=== PATIENT | male | born 1955 | race Caucasian/White ===

== ENCOUNTER 2018-06-21 06:49 | Day surgery (SDC) | payer MEDICAID, SELFPAY ==
[2018-06-21 07:15] VITALS: BP 130/89; PULSE 62; RESP 18; TEMP 36.8; O2SAT 97; BMI 28.6
--- NOTE | 2018-06-21 08:00 | COLBX_PTH ---
PATIENT: VINCENZO BENEDICT LOC: EN U#:[id number] AGE/SX: 62/M ROOM: RE06/21/[address]: Dr. Glenn Solomon MD : [id number] BED: DIS: 06/21/2018 SPEC #: [id number] RECD: 06/21/18 10:03 STATUS: KEKE DANIEL #: [id number] YASMANI: 06/21/18 08:[address]: Glenn Solomon DEPT: SURGICAL PATHOLOGY RECD BY: Yomi House ENTERED: 06/21/18 11:17 SP TYPE: COLON BX OTHR DR: Dr. David Vogt, DO Tissues: A - Cecum, NOS B - Transverse colon C - Rectum, NOS Procedures: Surgery Specimen Level IV HEADER OPERATION: Colonoscopy PRE-OP DIAGNOSIS: Thrombosed external hemorrhoid; screening for colon CA TISSUE SUBMITTED: A ? Cecal polyp, B ? Transverse polyp, C ? Rectal polyp MICROSCOPIC DIAGNOSIS A. Cecal polyp, biopsy: Hyperplastic polyp. B. Transverse colon polyp, biopsy: Tubular adenoma. Minute fragment of hyperplastic polyp. C. Rectal polyp, biopsy: Hyperplastic polyp. CARIDAD:yohan 06/24/18 MICROSCOPIC DESCRIPTION Slides are reviewed. GROSS DESCRIPTION A - Received in fixative is one container labeled with the patient's name and designated cecal polyp. The specimen consists of one irregular fragment of light roy soft tissue that measures 0.3 x 0.3 x 0.1 cm. The specimen is totally submitted in one cassette. B - Received in fixative is one container labeled with the patient's name and designated transverse polyp. The specimen consists of a piece of roy-pink polyp measuring 0.5 x 0.5 x 0.3 cm. A minute piece of tissue is also noted measuring <0.1 cm in greatest diameter. The specimen is totally submitted in one cassette. C - Received in fixative is one container labeled with the patient's name and designated rectal polyp. The specimen consists of one irregular fragment of light roy soft tissue that measures 0.4 x 0.3 x 0.1 cm. The specimen is totally submitted in one cassette. / CARIDAD:yohan 06/21/18 TC:1 CPT: 18167 x3
[2018-06-21 08:45] VITALS: BP 104/62; BP 130/89; PULSE 60; RESP 12; TEMP 36.1; O2SAT 96
--- NOTE | 2018-06-21 08:47 | PCM.OPRPT ---
Problem List (1) Screen for colon cancer Status: Acute Report of Operation Date of Procedure: 06/21/18 Pre-Operative Diagnosis: Screening for colon cancer Post-Operative Diagnosis: 1. Cecal polyp. 2. Transverse colon polyp. 3. Rectal polyp. 4. Hemorrhoids Surgery/Procedure Performed:: Colonoscopy with snare polypectomy Description of Procedure: The major risks and benefits associated with the procedure were explained to the patient in detail. The patient verbalized understanding and agreement with the same. The patient was brought to the endoscopy suite. After adequate sedation was achieved, the patient was placed in the left lateral decubitus position and a digital rectal exam was performed. This examination was within normal limits. A well-lubricated colonoscope was then inserted into the rectum and advanced under direct visualization to the level of the cecum. The bowel prep was good. The cecum was identified by both visual and anatomic landmarks. A photograph was taken of the end of the cecum. The scope was then fully withdrawn while examining the color, texture, anatomy and integrity of the mucosa from the cecum to the anal canal. The patient had a polyp in his cecum as well as a polyp in his mid transverse colon and rectum. All of these were removed with cautery snare. Hemostasis was good in all these locations. Otherwise the findings were consistent with normal colonic mucosa. Over 6 minutes were taken to examine the colonic mucosa. Upon reaching the rectum the scope was retroflexed to examine the distal rectal vault. The patient did have internal hemorrhoids. The scope was then straightened and was completely retrieved upon exiting the anal canal and the procedure was terminated. The patient was then transferred to the recovery room in stable condition. Recommendations for follow up: Dependent on pathology
[2018-06-21 08:50] VITALS: BP 104/77; BP 130/89; PULSE 53; RESP 16; O2SAT 94
[2018-06-21 08:55] VITALS: BP 114/83; BP 130/89; PULSE 52; RESP 16; O2SAT 94
[2018-06-21 09:00] VITALS: BP 122/89; BP 130/89; PULSE 48; RESP 16; TEMP 36.2; O2SAT 95
[2018-06-21 09:25] VITALS: BP 130/89
== END 2018-06-21 09:25 | disposition home or self-care (01) ==
LOC: EN 06:49 → AC 06:53
PROVIDERS: Family Provider Family Medicine; PCP Family Medicine; Visit Provider Surgery
PROC: 0DJD8ZZ Inspection of Lower Intestinal Tract, Via Natural or Artificial Opening Endoscopic (ICD-10-PCS; CPT 45378; principal; 2018-06-21 07:55)
DX: Z12.11 Encounter for screening for malignant neoplasm of colon (principal); K64.5 Perianal venous thrombosis; K63.5 Polyp of colon; D12.3 Benign neoplasm of transverse colon; K62.1 Rectal polyp; K64.4 Residual hemorrhoidal skin tags; E78.5 Hyperlipidemia, unspecified; Z79.899 Other long term (current) drug therapy
CPT/HCPCS: 45385; 88305; J7120

== ENCOUNTER → 2018-07-09 11:59 | Outpatient (CLI) | payer OTHER, SELFPAY | PROVIDERS: Family Provider Family Medicine; PCP Family Medicine; Visit Provider Nurse Practitioner Family | DX: M25.571 Pain in right ankle and joints of right foot (principal) | CPT/HCPCS: 73610 ==

== ENCOUNTER → 2018-09-18 10:54 | Outpatient (CLI) | payer MEDICAID, SELFPAY ==
[2018-09-18 12:39] LABS: ALB/GLOB Ratio 1.1 RATIO (0.9-2.4); AST(SGOT) 22 U/L (15-37); Alanine Aminotransfer ALT/SGPT 34 U/L (16-61); Albumin, Serum 3.7 g/dL (3.2-5.0); Alkaline Phosphatase 79 U/L (45-117); Anion Gap 7 (5-15); BUN 14 mg/dL (7-18); BUN/Creat Ratio 14.2 RATIO (10-20); Calcium,Total 8.7 mg/dL (8.5-10.1); Chloride 108 mmol/L (98-107); Cholesterol 221 mg/dL (200); Creatinine, Serum 0.98 mg/dL (0.70-1.30); EST Glomerular Filtration Rate 81 mL/min (>60); Est Glom Filt Rate - Afr Amer 98 mL/min (>60); Globulin 3.5 g/dL (2.2-4.2); Glucose 92 mg/dL (74-106); High Density Lipoprotein 42 mg/dL; Potassium 4.5 mmol/L (3.5-5.1); Protein, Total 7.2 g/dL (6.4-8.2); Sodium Level 143 mmol/L (136-145); Triglycerides 105 mg/dL; Very Low Density Lipoprotein 21 mg/dL (5-40)
== END ==
PROVIDERS: Family Provider Family Medicine; PCP Family Medicine; Referring Provider Family Medicine; Visit Provider Family Medicine
DX: Z00.00 Encounter for general adult medical examination without abnormal findings (principal); E78.5 Hyperlipidemia, unspecified
CPT/HCPCS: 36415; 80053; 80061; 84153; G0103

== ENCOUNTER → 2019-08-01 12:44 | Outpatient (CLI) | payer MEDICARE, SELFPAY ==
[2019-07-23 09:33] VITALS: BMI 28.5
--- NOTE | 2019-08-01 12:45 | ART_ITS ---
Reason For Study: Intermittent claudication Procedure A bilateral lower extremity continuous wave Doppler with analog waveform analysis and ankle brachial indexes. Left Segmental Pressures Left brachial= 146mmHg. Left posterior tibial artery = 165mmHg. Left dorsalis pedis artery = 185mmHg. The left dorsalis pedis waveforms are triphasic. The left posterior tibial artery waveforms are triphasic. Right Segmental Pressures Right brachial= 148mmHg. Right posterior tibial artery = 188mmHg. Right dorsalis pedis artery = 191mmHg. The right dorsalis pedis waveforms are triphasic. The right posterior tibial artery waveforms are triphasic. Indices The right ankle brachial index by the dorsalis pedis is 1.29. The right ankle brachial index by the posterior tibial artery is 1.27. The left ankle brachial index by the dorsalis pedis is 1.25. The left ankle brachial index by the posterior tibial artery is 1.11. Interpretation Summary Triphasic Doppler waveforms are noted at ankle level bilaterally. Resting ankle-brachial indices are normal bilaterally. There is no evidence of significant arterial occlusive disease in the lower extremities bilaterally. Ordering Physician: Jj Kauffman Referring Physician: Ran Vogt M.D. Performed By: Wanda Hunter RVT
== END ==
PROVIDERS: Family Provider Family Medicine; PCP Family Medicine; Referring Provider Nurse Practitioner Family; Visit Provider Nurse Practitioner Family
DX: I73.9 Peripheral vascular disease, unspecified (principal)
CPT/HCPCS: 93922

== ENCOUNTER → 2019-09-17 08:10 | Outpatient (CLI) | payer MEDICARE, SELFPAY ==
[2019-09-03 13:01] VITALS: BMI 28.5
[2019-09-17 12:58] LABS: AST(SGOT) 22 U/L (15-37); Alanine Aminotransfer ALT/SGPT 29 U/L (16-61); Albumin, Serum 3.6 g/dL (3.2-5.0); Alkaline Phosphatase 87 U/L (45-117); Anion Gap 4 (5-15); BUN 16 mg/dL (7-18); BUN/Creat Ratio 18.2 RATIO (10-20); Calcium,Total 9.1 mg/dL (8.5-10.1); Chloride 110 mmol/L (98-107); Cholesterol 145 mg/dL (200); Creatinine, Serum 0.88 mg/dL (0.70-1.30); EST Glomerular Filtration Rate 92 mL/min (>60); Est Glom Filt Rate - Afr Amer 112 mL/min (>60); Globulin 3.5 g/dL (2.2-4.2); Glucose 101 mg/dL (74-106); High Density Lipoprotein 43 mg/dL; Protein, Total 7.1 g/dL (6.4-8.2); Sodium Level 142 mmol/L (136-145); Triglycerides 95 mg/dL; Very Low Density Lipoprotein 19 mg/dL (5-40)
== END ==
PROVIDERS: Family Provider Family Medicine; PCP Family Medicine; Visit Provider Family Medicine
DX: E78.5 Hyperlipidemia, unspecified (principal)
CPT/HCPCS: 36415; 80053; 80061

== ENCOUNTER → 2020-06-01 09:50 | Outpatient (CLI) | payer MEDICARE, SELFPAY ==
[2020-05-06 12:44] VITALS: BMI 28.5
--- NOTE | 2020-06-01 09:55 | RAD_ITS ---
STUDY: X-RAY - PELVIS REASON FOR EXAM: Male, 64 years old. Hx osteoarthritis, in right ankle, ATTN hips TECHNIQUE: One view of the pelvis was obtained. COMPARISON: None. FINDINGS: There is a non-specific bowel gas pattern. Normal visualized soft tissue structures. There is degenerative change of the lower lumbar spine. There is narrowing with cortical sclerosis and osteophyte formation of the sacroiliac joint consistent with degenerative osteoarthritic changes. Normal visualized bilateral superior and inferior pubic rami. Normal pubic symphysis. Normal ischial tuberosities. Normal visualized right femoral head. Normal right acetabulum. There is moderate articular joint space narrowing of the right hip. There is a thickened appearance of the left. Right femoral neck which is nonspecific. Normal left acetabulum. There is moderate articular joint space narrowing of the left hip. RAD/Pelvis 1 or 2 Views IMPRESSION: Degenerative change.. No definitive evidence of an acute fracture. The presence of trauma, If pain persists recommend consideration for follow up CT scan of the pelvis. Electronically Signed: Kira Patiño MD at 6:39 EDT Tel , Service support ,
[2020-06-01 13:08] LABS: Erythrocyte Sedimentation Rate 15 mm/hr (0-20)
[2020-06-01 13:09] LABS: Absolute Lymphocyte Count 1.44 X10^3/uL (0.83-4.51); Absolute Neutrophil Count 2.1 X10^3/uL (2.0-7.7); Basophil# 0.05 X10^3/uL; Basophil% 1.2 % (0-1); Eosinophil# 0.06 X10^3/uL; Eosinophils% 1.5 % (0-5); Hematocrit 48.5 % (40-54); Hemoglobin 15.6 g/dL (13.0-16.5); Lymphocyte # 1.44 X10^3/ul (4.0); Lymphocyte % 35.3 % (19-41); Mean Corp Hgb Conc 32.2 g/dL (32-36); Mean Corpuscular Volume 96.2 fL (80-94); Mean Platelet Vol. 11.4 fl (6.2-12.0); Monocyte# 0.39 X10^3/uL; Monocyte% 9.6 % (0-10); NRBC Flagged by Analyzer 0 % (0-5); Neutrophil # 2.11 X10^3/uL (2.7-7.7); Neutrophil % 51.7 % (47-70); Platelet Count 202 K/mm3 (150-450); RBC Distribution Width SD 45.5 fl (35.1-43.9); Red Blood Count 5.04 M/mm3 (4.6-6.2); White Blood Count 4.1 K/mm3 (4.4-11.0)
[2020-06-01 13:41] LABS: ALB/GLOB Ratio 1.1 RATIO (0.9-2.4); AST(SGOT) 21 U/L (15-37); Alanine Aminotransfer ALT/SGPT 32 U/L (16-61); Albumin, Serum 3.7 g/dL (3.2-5.0); Alkaline Phosphatase 93 U/L (45-117); Anion Gap 6 (5-15); BUN 20 mg/dL (7-18); BUN/Creat Ratio 21.1 RATIO (10-20); CRP < 2.90 mg/L (0.0-3.0); Calcium,Total 8.5 mg/dL (8.5-10.1); Chloride 109 mmol/L (98-107); Creatinine, Serum 0.95 mg/dL (0.70-1.30); EST Glomerular Filtration Rate 84 mL/min (>60); Est Glom Filt Rate - Afr Amer 102 mL/min (>60); Globulin 3.5 g/dL (2.2-4.2); Glucose 105 mg/dL (74-106); Potassium 4.1 mmol/L (3.5-5.1); Protein, Total 7.2 g/dL (6.4-8.2); Rheumatoid Factor < 10.0 IU/mL (<15); Sodium Level 141 mmol/L (136-145)
[2020-06-03 01:53] LABS: ANTINUCLEAR ANTIBODIES DIRECT Negative (Negative)
[2020-06-03 04:17] LABS: CCP IgG Antibodies 5 units (0-19)
== END ==
PROVIDERS: PCP Family Medicine; Referring Provider Internal Medicine Rheumatology; Visit Provider Internal Medicine Rheumatology
DX: M19.071 Primary osteoarthritis, right ankle and foot (principal); E78.5 Hyperlipidemia, unspecified; G47.33 Obstructive sleep apnea (adult) (pediatric)
CPT/HCPCS: 36415; 72170; 80053; 85025; 85652; 86038; 86140; 86200; 86431

== ENCOUNTER → 2020-12-20 14:18 | Outpatient (CLI) | payer MEDICARE, SELFPAY ==
[2020-06-16 08:12] VITALS: BMI 28.1
[2020-12-20 17:39] LABS: Absolute Lymphocyte Count 1.62 X10^3/uL (0.83-4.51); Absolute Neutrophil Count 2.6 X10^3/uL (2.0-7.7); Basophil# 0.03 X10^3/uL; Basophil% 0.6 % (0-1); Eosinophil# 0.03 X10^3/uL; Eosinophils% 0.6 % (0-5); Hematocrit 45.4 % (40-54); Hemoglobin 16.1 g/dL (13.0-16.5); Lymphocyte # 1.62 X10^3/ul (4.0); Lymphocyte % 33.8 % (19-41); Mean Corp Hgb Conc 35.5 g/dL (32-36); Mean Corpuscular Hgb 33.8 pg (27.0-32.0); Mean Corpuscular Volume 95.4 fL (80-94); Mean Platelet Vol. 11.2 fl (6.2-12.0); Monocyte# 0.47 X10^3/uL; Monocyte% 9.8 % (0-10); NRBC Flagged by Analyzer 0 % (0-5); Neutrophil # 2.62 X10^3/uL (2.7-7.7); Neutrophil % 54.6 % (47-70); Platelet Count 205 K/mm3 (150-450); RBC Distribution Width CV 15.1 % (11.6-14.6); RBC Distribution Width SD 46.6 fl (35.1-43.9); Red Blood Count 4.76 M/mm3 (4.6-6.2); White Blood Count 4.8 K/mm3 (4.4-11.0)
[2020-12-20 18:14] LABS: ALB/GLOB Ratio 1.2 RATIO (0.9-2.4); AST(SGOT) 18 U/L (15-37); Alanine Aminotransfer ALT/SGPT 29 U/L (16-61); Alkaline Phosphatase 100 U/L (45-117); Anion Gap 5 (5-15); BUN 18 mg/dL (7-18); BUN/Creat Ratio 17.5 RATIO (10-20); Calcium,Total 8.7 mg/dL (8.5-10.1); Chloride 108 mmol/L (98-107); Creatinine, Serum 1.03 mg/dL (0.70-1.30); EST Glomerular Filtration Rate 77 mL/min (>60); Est Glom Filt Rate - Afr Amer 93 mL/min (>60); Globulin 3.3 g/dL (2.2-4.2); Glucose 80 mg/dL (74-106); Protein, Total 7.3 g/dL (6.4-8.2); Sodium Level 142 mmol/L (136-145)
== END ==
PROVIDERS: PCP Family Medicine; Referring Provider Internal Medicine Rheumatology; Visit Provider Internal Medicine Rheumatology
DX: M19.071 Primary osteoarthritis, right ankle and foot (principal); M16.0 Bilateral primary osteoarthritis of hip; E78.5 Hyperlipidemia, unspecified; G47.33 Obstructive sleep apnea (adult) (pediatric)
CPT/HCPCS: 36415; 80053; 85025

== ENCOUNTER 2021-01-27 07:47 | Outpatient (RCR) | payer MEDICARE, SELFPAY ==
[2020-06-16 08:12] VITALS: BMI 28.1
[2021-01-27] MEDS: COVID-19 VACC, MRNA(PFIZER)/PF 30 MCG/0.3 ML SYRINGE IM (13:04)
[2021-02-17] MEDS: COVID-19 VACC, MRNA(PFIZER)/PF 30 MCG/0.3 ML SYRINGE IM (13:39)
== END 2021-04-26 23:59 ==
LOC: IMMUN 07:47
PROVIDERS: PCP Family Medicine; Visit Provider Family Medicine
DX: Z23 Encounter for immunization (principal)
CPT/HCPCS: 0001A; 0002A; 91300

== ENCOUNTER → 2021-04-27 07:27 | Outpatient (CLI) | payer MEDICARE, SELFPAY ==
[2021-04-20 08:57] VITALS: BMI 28.5
--- NOTE | 2021-04-27 07:28 | MRI_ITS ---
STUDY: MRI LUMBAR SPINE WITHOUT CONTRAST REASON FOR EXAM: Male, 65 years old. low back pain with radicular symptoms -- TECHNIQUE: Standardized fat and water weighted pulse sequences were obtained in the sagittal and axial planes. COMPARISON: None FINDINGS: T12-L1: Normal endplates. Normal disc height, hydration and morphology. Normal bilateral facet joints. Normal central canal and bilateral lateral recesses. Normal bilateral intervertebral neural foramina. Normal lumbar lordosis. There is no substantial scoliosis. Normal conus medullaris that terminates at the T12/L1. L1-2: Mild bilobed disc protrusion with a small left paracentral/preforaminal disc extrusion produces mild spinal stenosis, mild right lateral recess stenosis, moderate left lateral recess stenosis and mild bilateral neural foraminal stenosis. L2-3: Mild bilobed disc protrusion produces mild spinal stenosis and mild bilateral neural foraminal stenosis. L3-4: Mild bilateral facet hypertrophy and moderate ligament flavum hypertrophy. 2 mm retrolisthesis of L3 on L4 with a mild bilobed disc protrusion produces moderate spinal stenosis with moderate bilateral lateral recess stenosis with abutment of the L4 nerve roots bilaterally and mild bilateral neural foraminal stenosis. L4-5: Severe bilateral facet hypertrophy and ligament flavum hypertrophy. 2 mm of anterolisthesis of L4 on L5 with a moderate broad disc protrusion produces severe spinal stenosis with severe bilateral lateral recess stenosis with effacement of the L5 nerve roots bilaterally and moderate bilateral neural foraminal stenosis with abutment of the exiting L4 nerve roots bilaterally. L5-S1: Moderate bilateral facet hypertrophy and ligament flavum hypertrophy. Moderate broad disc protrusion asymmetric to the left with a left foraminal protrusion produces moderate spinal stenosis with mild right neural foraminal stenosis and moderate left neural foraminal stenosis with abutment of the left L5 nerve root laterally. Normal visualized sacral ala. Normal visualized paraspinous soft tissue structures. MRI/Spine Lumbar (Routine) IMPRESSION: Multilevel degenerative changes, as described above. Electronically Signed: Yomi Rojo MD at 16:57 EDT Tel , Service support ,
--- NOTE | 2021-04-27 07:35 | RAD_ITS ---
STUDY: X-RAY - ORBITS REASON FOR EXAM: Male, 65 years old. PRE MRI TECHNIQUE: 2 view(s) of the orbits were obtained. COMPARISON: None. FINDINGS: Normal bilateral orbits without a metallic orbital foreign body. The soft tissue structures are unremarkable. RAD/Orbits for Foreign Body IMPRESSION: No demonstrated metallic orbital foreign body. The patient is cleared for an MRI examination. Electronically Signed: Juliet Robbins MD at 8:04 EDT Tel , Service support ,
== END ==
PROVIDERS: PCP Family Medicine; Referring Provider Physician Assistant; Visit Provider Physician Assistant
DX: Z01.818 Encounter for other preprocedural examination (principal); M54.5 Low back pain; M51.36 Other intervertebral disc degeneration, lumbar region; M43.10 Spondylolisthesis, site unspecified
CPT/HCPCS: 70030; 72148

== ENCOUNTER → 2021-06-20 14:48 | Outpatient (CLI) | payer MEDICARE, SELFPAY ==
[2021-04-20 08:57] VITALS: BMI 28.5
[2021-06-20 17:49] LABS: Absolute Lymphocyte Count 1.91 X10^3/uL (0.83-4.51); Absolute Neutrophil Count 2.7 X10^3/uL (2.0-7.7); Basophil# 0.05 X10^3/uL; Eosinophil# 0.06 X10^3/uL; Eosinophils% 1.1 % (0-5); Hemoglobin 14.9 g/dL (13.0-16.5); Lymphocyte # 1.91 X10^3/ul (0.83-4.51); Lymphocyte % 36.5 % (19-41); Mean Corp Hgb Conc 32.4 g/dL (32-36); Mean Corpuscular Hgb 30.2 pg (27.0-32.0); Mean Corpuscular Volume 93.3 fL (80-94); Mean Platelet Vol. 10.9 fl (6.2-12.0); Monocyte# 0.52 X10^3/uL; Monocyte% 9.9 % (0-10); NRBC Flagged by Analyzer 0 % (0-5); Neutrophil # 2.66 X10^3/uL (2.7-7.7); Neutrophil % 50.9 % (47-70); Platelet Count 226 K/mm3 (150-450); RBC Distribution Width CV 13.6 % (11.6-14.6); RBC Distribution Width SD 46.1 fl (35.1-43.9); Red Blood Count 4.93 M/mm3 (4.6-6.2); White Blood Count 5.2 K/mm3 (4.4-11.0)
[2021-06-20 18:16] LABS: ALB/GLOB Ratio 1.2 RATIO (0.9-2.4); AST(SGOT) 24 U/L (15-37); Alanine Aminotransfer ALT/SGPT 34 U/L (16-61); Albumin, Serum 3.9 g/dL (3.2-5.0); Alkaline Phosphatase 91 U/L (45-117); Anion Gap 6 (5-15); BUN 18 mg/dL (7-18); BUN/Creat Ratio 19.4 RATIO (10-20); Calcium,Total 8.5 mg/dL (8.5-10.1); Chloride 109 mmol/L (98-107); Creatinine, Serum 0.93 mg/dL (0.70-1.30); EST Glomerular Filtration Rate 87 mL/min (>60); Est Glom Filt Rate - Afr Amer 105 mL/min (>60); Globulin 3.2 g/dL (2.2-4.2); Glucose 83 mg/dL (74-106); Potassium 3.9 mmol/L (3.5-5.1); Protein, Total 7.1 g/dL (6.4-8.2); Sodium Level 142 mmol/L (136-145)
== END ==
PROVIDERS: PCP Family Medicine; Referring Provider Internal Medicine Rheumatology; Visit Provider Internal Medicine Rheumatology
DX: M19.071 Primary osteoarthritis, right ankle and foot (principal); M16.0 Bilateral primary osteoarthritis of hip; E78.5 Hyperlipidemia, unspecified; G47.33 Obstructive sleep apnea (adult) (pediatric)
CPT/HCPCS: 36415; 80053; 85025

== ENCOUNTER 2021-07-04 16:00 | Outpatient (RCR) | payer MEDICARE, SELFPAY ==
[2021-04-20 08:57] VITALS: BMI 28.5
--- NOTE | 2021-04-25 16:38 | HP.PTEVAL ---
Patient's Visit Information VINCENZO BENEDICT is a 65 year old M referred to Physical Therapy by ODNNA Lynne with a diagnosis of LBP AND DDD. Date of Evaluation: 04/25/21 Physical Therapist: Pauline Cortez PT, Cert MDT - Visit Plan Frequency: 2-3x /Week Duration: 4-6 Weeks Plan: US, POSTURE CORRECTION/STRENGTHENING, INSTRUCTION IN APPROPRIATE BODY MECHANICS AND ACTIVITY MODIFICATIONS. DLS STARTING WITH A NEUTRAL SPINE PROGRESSING ROM TOLERATED. RANDY LE ROM, STRETCHING AND STRENGTHENING. HEP INSTRUCTION. 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 Disability: NO. Present symptoms: CHEIF COMPLAINIT IS PAIN AND TINGLING OUTSIDE OF RIGHT LOWER LEG. LOW BACK PAIN L > R, RIGHT THIGH PAIN AND RIGHT CALF PAIN. ALSO GETS NUMBESS IN THE BOTTOM OF R FOOT AND PAIN IN TOES. NO L LE SX'S. Present since: ABOUT 2 YEARS AGO. Pain Scale: WORST 8/10, LEAST 0/10. Currently: 11/28. Commenced as a result of: NO APPARENT REASON OTHER THAN TWISTING DOING WOOD. Symptoms at onset: LOW BACK. Worse: WALKING, CARRYING THINGS WHILE WALKING, ACTIVITY, STANDING, CONSTANT MVMT AGGREVATES IT. PROLONGED SITTING, DRIVING, MOWING ON RIDING MOWER. USING RIGHT LE TO DRIVE VEHICLES. Better: SITTING IN CORNER OF RECLINER ELEVATING RIGHT LE ON ARM OF CHAIR. NOT MUCH. Disturbed sleep: YES - ESPECIALLY IF ACTIVE DURING THE DAY. Previous history/Previous treatment: HISTORY OF CHIROPRACTOR FOR 20 YEARS. CHIRO 2X'S A WEEK FOR LAST TWO MONTHS. PATIENT REPORTS CHIROPRACTOR SAID HE IS WROC-MIRPD-OC WITH PHYSICAL ACTIVITY. STATES CHIRO SUGGESTED MRI AND DR. RECINOS ORDERED IT. STATES HE HAS GONE TO THE DOCTOR FOR THIS FOR ABOUT 3 YEARS AND WAS TOLD HE HAS GUSMAN SPLINTS. STATES DR. ANDERSON DX'D HIM WITH OA ABOUT A YEAR AGO. ON PAIN PILLS THROUGH DR. ANDERSON. RIGHT ANKLE CORTISONE SHOT BY DR. MARCELO ABOUT A YEAR AGO AND IT HELPED TEMPORARILY. NO BACK SURGERY. NO DAVID'S. NO PHYSICAL THERAPY. Coughing/sneezing/straining: NEGATIVE. Gait: MY RIGHT ANKLE HURTS. PATIENT REPORTS LIMPING ON R LE DUE TO PAIN UP THE SIDE OF HIS LEG TOO. I HOBBLE'. DOES NOT USE ANY ASSISTIVE DEVICES. Difficulty initiating urinatin: UTI ABOUT 6 WKS AGO. Accidents: NO. Unexplained weight loss: NO. Imaging: MAY 2020 PELVIC X-RAYS AND MRI PENDING 04/29/21. LUMBAR X-RAYS TAKEN ABOUT 6 MONTHS AGO ORDERED BY CLEMENCIA LAGOS - CHIROPRACTOR APPARENTLY SHOWING 2 TO 3 MM OF ANTEROLISTHESIS AND DDD AT L5S1 PER YOKO CARRASCO'S (PA) REPORT. PELVIC X-RAY: There is degenerative change of the lower lumbar spine. There is narrowing with cortical sclerosis and osteophyte formation of the. sacroiliac joint consistent with degenerative osteoarthritic changes. Normal visualized bilateral superior and inferior pubic rami. Normal pubic. symphysis. Normal ischial tuberosities. Normal visualized right femoral head. Normal right acetabulum. There is. moderate articular joint space narrowing of the right hip. There is a thickened appearance of the left. Right femoral neck which is. nonspecific. Normal left acetabulum. There is moderate articular joint. space narrowing of the left hip. PMH/Recent major surgery: RECOVERING ALCOHOLIC, OA - Objective Sitting/Standing Posture: POOR. Lordosis: REDUCED. Lateral shift: LEFT. Relevant shift: YES. Active Correction of posture: NE. Other Observations: INDEP GAIT INTO PT LIMPING ON RIGHT LE, NO ASSITIVE DEVICES AND NO LOB. INDEP TRANSFER SIT TO STAND WITHOUT UE ASSIST. Motor deficit: RANDY LE'S GROSSLY 5/5 WITH MMT'ING. Sensory deficit: RANDY LE LIGHT TOUCH SENSATION APPEARS INTACT AND SYMMETRICAL. ROM deficit: TIGHT RANDY LE HIP FLEXORS, HS'S AND GASTROC SOLEUS COMPLEX'S. Reflexes: UNABLE TO ELICIT RANDY ACHILLES OR R QUAD BUT L QUAD IS NORMAL. Dural Signs: NEGATIVE RANDY LE'S WITH SLUMP TESTING. Lumbar mvmt loss: flex - NIL. ext - TEMI. R SG - TEMI. L SG - MOD. PATIENT C/O INCREASED PAIN WITH LUMBAR ROM TESTING AND PATIENT STANDING WITH LESS WEIGHT ON RIGHT LE AND INCREASED FLEXION AND CORRECTION INCREASES R LE TINGLING. Core strength: POOR. Palpation: NO ACUTE LUMBAR OR SACRAL TENDERNESS. NO ACUTE RANDY HIP TENDERNESS. OTHER: PATIENT REPORTS IT HURTS TOO MUCH TO WALK ON HIS TOES BUT HE DOES DEMO THE ABILITY TO WALK ON HIS HEELS. TREATMENT: NEUROMUSCULAR REEDUCATION - RETRAINING OF MVMT AND POSTURE FOR SITTING, LYING AND STANDING ACTIVITIES. - Goals Goal 1:: DECREASE C/O LOW BACK AND R LE SX'S. Goal Time Frame: 4-6 Weeks Goal 2:: IMPROVE LIFTING, WALKING, STANDING, SOCIAL LIFE, TRAVEL AND HOMEMAKING FUNCTION. Goal Time Frame: 4-6 Weeks Goal 3:: INSTRUCT IN PROPHYLAXIS Goal Time Frame: 4-6 Weeks - Anticipated Interventions Patient/Client Instruction: Educate patient on: Condition, Plan of Care, Risk Factors For the Purpose of:: To improve self management Therapeutic Exercise to Include: Strength training, Body mechanics, Postural training, Neuromotor development, In an aquatic setting, Dynamic Lumbar Stabilization For the Purpose of:: To decrease pain, To improve muscle performance and motor function, To increase tolerance to activity/condition/position, To improve ability of physical actions for home/community/work/leisure Thank you for the opportunity to evaluate your patient. For Medicare and Medicare HMO plans, please review the plan of care and approve it. It will need to be FAXED BACK to us at [phone] for Medicare purposes. For Medicare only, by signing this I certify the plan of care. Please let me know if there are questions or concerns regarding this plan of care. Physician Signature: Date:
--- NOTE | 2021-05-30 17:26 | HP.PTREVAL ---
DONNA Lynne, It has been my pleasure to treat VINCENZO BENEDICT over the last 9 visits for LBP AND DDD. Please see the progress note below for an update on the physical therapy plan of care! Subjective: PATIENT REPORTS THE PAIN IS NOT DISTURBING HIS SLEEP MUCH. STATES HE CAN STRETCH HIS LEG OUT NOW BUT HE CAN'T STAY THAT WAY. I AM WALKING STRAIGHTER AND IT IS BETTER IN THE MORNING. MY ANKLE STILL HURTS THOUGH. PATIENT REPORTS HE HAS MORE FLEXABILITY IN HIS HIPS , KNEES AND BACK SINCE STARTING PT. PATIENT REPORTS HIS LEG IS NUMB RIGHT NOW ON THE OUTSIDE. Objective/Function: PATIENT WAS SEEN TODAY FOR RE-ASSESSMENT OF PROGRESS TOWARD THE SET PT GOALS AND THE NEED FOR FURTHER PHYSICAL THERAPY VS READINESS FOR DISCHARGE. HE IS MAKING SLOW MINIMAL PROGRESS TOWARD THE SET PT GOALS BUT IS STILL SIGNIFICANTLY LIMITED IN STANDING AND WALKING ACTIVITIES AND HAS SIGNIFICANT C/O'S OF PAIN AND RIGHT LE NUMBNESS. HE IS A GOOD CANDIDATED TO TRY TO CONTINUE PT BASED ON PROGRESS MADE AND ROOM FOR FUTHER IMPROVEMENT BUT PHYSICIAN RE-CHECK ALSO RECOMMENDED AT THIS TIME BASED ON SLOW MINIMAL PROGRESS AND MRI RESULTS. PATEINT IS AGREEABLE TO BOTH. UPON EXAM TODAY: Motor deficit: RANDY LE'S GROSSLY 5/5 WITH MMT'ING. Sensory deficit: RANDY LE LIGHT TOUCH SENSATION APPEARS INTACT AND SYMMETRICAL. ROM deficit: TIGHT RANDY LE HIP FLEXORS, HS'S AND GASTROC SOLEUS COMPLEX'S. Reflexes: UNABLE TO ELICIT RANDY ACHILLES OR R QUAD BUT L QUAD IS NORMAL. Dural Signs: NEGATIVE RANDY LE'S WITH SLUMP TESTING. Lumbar mvmt loss: flex - NIL. ext - TEMI. R SG - MOD. L SG - MOD. PATIENT C/O INCREASED PAIN WITH LUMBAR ROM TESTING INTO R SG AND EXTENSION. STANDING WITH WEIGHT MORE EVEN ON RANDY LE'S TODAY. Core strength: POOR. Palpation: NO ACUTE LUMBAR OR SACRAL TENDERNESS. NO ACUTE RANDY HIP TENDERNESS. Plan Plan: CONT AQUATIC THERAPY FOR PAIN RELIEF, POSTURE CORRECTION/STRENGTHENING, INSTRUCTION IN APPROPRIATE BODY MECHANICS AND ACTIVITY MODIFICATIONS. DLS STARTING WITH A NEUTRAL SPINE PROGRESSING ROM TOLERATED. RANDY LE ROM, STRETCHING AND STRENGTHENING. HEP INSTRUCTION. Goals Goal 1:: DECREASE C/O LOW BACK AND R LE SX'S. Goal Time Frame: 4-6 Weeks Goal 2:: IMPROVE LIFTING, WALKING, STANDING, SOCIAL LIFE, TRAVEL AND HOMEMAKING FUNCTION. Goal Time Frame: 4-6 Weeks Goal 3:: INSTRUCT IN PROPHYLAXIS Goal Time Frame: 4-6 Weeks Anticipated Interventions Patient/Client Instruction: Educate patient on: Condition, Plan of Care, Risk Factors For the Purpose of:: To improve self management Therapeutic Exercise to Include: Strength training, Body mechanics, Postural training, Neuromotor development, In an aquatic setting, Dynamic Lumbar Stabilization For the Purpose of:: To decrease pain, To improve muscle performance and motor function, To increase tolerance to activity/condition/position, To improve ability of physical actions for home/community/work/leisure Please do not hesitate to contact me at [phone] by phone or if you have questions or concerns regarding this new plan of care! Sincerely, Pauline Cortez, PT, Cert MDT
== END 2021-07-04 19:00 | disposition home or self-care (01) ==
LOC: PT 16:00
PROVIDERS: PCP Family Medicine; Referring Provider Physician Assistant; Visit Provider Physician Assistant
DX: M54.5 Low back pain (principal); M51.36 Other intervertebral disc degeneration, lumbar region
CPT/HCPCS: 97112; 97113; 97162; 97164; 97530

== ENCOUNTER 2021-09-09 15:00 | Outpatient (RCR) | payer MEDICARE, SELFPAY ==
--- NOTE | 2021-09-05 08:45 | HP.PTEVAL ---
Patient's Visit Information VINCENZO BENEDICT is a 66 year old M referred to Physical Therapy by Dr. Adelina Whitney MD with a diagnosis of Back pain.. Date of Evaluation: 09/05/21 Physical Therapist: Jaquan Trevizo DPT, OCS, CSCS - Visit Plan Frequency: 2x /Week Duration: 4-6 Weeks Plan: 2x/weeek for 4 weeks for... 1. quad and hip flexor rollout and stretch. 2. NS positioning in standing and lumbar stretches into flexion. 3. NS strengthening to HEP and general strengthening to gym - Subjective Spine is swelling and pinching sciatic nerve. Causes pain in R ankle and into lateral calf. Got injections in back and that really helped. Steps at [employer] earlier in year was rough and caused his ankle pain. Have had legs and back pain for over 2 years. Sees chiropractor for a couple years which helps temporarily. Had MRI and has Lumbar vertebrae are bad. Pain in back up to 3/10 with lifting and walking. Comfortable at rest sitting. Leg pain lateral Right calf and ankle, Gets to 6/10 with walking and standing. Balance feels OK except when ankle hurts and he has to hobble. Retired from [employer], [employer]. 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 Walking and lifting will make him worse. Sleep is OK. One fall in ruts at volunteer job. - Pain LB and R ankle Pain Intensity (Out of 10): 0 Pain Intensity Range: 0, 6 - Objective Walks I with slight avoidance of L push off/weakness in PF. trasnfers I without UE. steps reciprocal with one rail. LB AROM ext WNL, flexion tight but able, SB B WNL and no pain today. Heel raises weak B, strength knees 4 B, hip abd and ext 3+, hip flexion 4-, ankles 4/5 all motions in testing. Sensation WNL to gross light touch. reflexes 0/3 B patella and achilles. - slump and SLR. HS also tigh B at -40 90/90 test, quads and hip flexors max tight barely getting to neutral hip ext ROM and premature tightness in quads with knee flexion. - Balance/Special Test Scores Functional Gait Assessment Score: 28 % Disability: 6.6700 Lower Extremity Functional Score: 61 - Goals Goal 1:: Pain in ankle abolished and LBP 1/10 at worst and manageable. Goal Time Frame: 4-6 Weeks Goal 2:: i apporopr HEP to minimize future problems and improve strength balace Goal Time Frame: 4-6 Weeks Goal 3:: 66 LEFS score to show improved function Goal Time Frame: 4-6 Weeks Goal 4:: Pt feel 75% better overall Goal Time Frame: 4-6 Weeks - Rehabilitation Potential Physical Therapy Diagnosis: Back pain and leg pain limiting function Rehabilitation Potential: Fair - Anticipated Interventions Patient/Client Instruction: Educate patient on: Condition, Plan of Care For the Purpose of:: To decrease pain, To increase ROM, To improve muscle performance and motor function, To increase tolerance to activity/condition/position, To improve ability of physical actions for home/community/work/leisure Therapeutic Exercise to Include: Strength training, Postural training, Flexibilty training, Passive ROM, Active ROM, Dynamic Lumbar Stabilization For the Purpose of:: To decrease pain, To increase ROM, To improve muscle performance and motor function, To increase tolerance to activity/condition/position, To improve ability of physical actions for home/community/work/leisure Manual Therapy Techniques to Include: Mobilization, Passive ROM, Soft tissue mobilization For the Purpose of:: To decrease pain, To increase ROM Thank you for the opportunity to evaluate your patient. For Medicare and Medicare HMO plans, please review the plan of care and approve it. It will need to be FAXED BACK to us at [phone] for Medicare purposes. For Medicare only, by signing this I certify the plan of care. Please let me know if there are questions or concerns regarding this plan of care. Physician Signature: Date:
--- NOTE | 2021-10-24 07:29 | HP.PT.NRP ---
VINCENZO BENEDICT was seen in my office for initial evaluation on 09/05/21. The following Plan of Care was established for this patient: Initial Frequency: 2x /Week Initial Duration: 4-6 Weeks Patient/Client Instruction: Educate patient on: Condition, Plan of Care For the Purpose of:: To decrease pain, To increase ROM, To improve muscle performance and motor function, To increase tolerance to activity/condition/position, To improve ability of physical actions for home/community/work/leisure Therapeutic Exercise to Include: Strength training, Postural training, Flexibilty training, Passive ROM, Active ROM, Dynamic Lumbar Stabilization For the Purpose of:: To decrease pain, To increase ROM, To improve muscle performance and motor function, To increase tolerance to activity/condition/position, To improve ability of physical actions for home/community/work/leisure Manual Therapy Techniques to Include: Mobilization, Passive ROM, Soft tissue mobilization For the Purpose of:: To decrease pain, To increase ROM This patient was last seen in our office 09/09/21. Pertinent comments regarding their Physical therapy will appear below: Pt seen 3 visits of POC. She then cancelled her next visit and neglected to schedule kaylee further. at this point, it has been over a month and I will discontinue due to nonattendance. At this point I will be discontinuing this patient from physical therapy. I would be happy to see this patient again in the future if found appropriate by the physician. Thank you! Jaquan Trevizo, DPT, OCS, CSCS Balance/Gait/Functional tests - Balance/Special Test Scores Functional Gait Assessment Score: 28 % Disability: 6.6700 Lower Extremity Functional Score: 61
== END 2021-09-09 19:00 | disposition home or self-care (01) ==
LOC: PT 15:00
PROVIDERS: PCP Family Medicine; Referring Provider Anesthesiology Pain Medicine; Visit Provider Anesthesiology Pain Medicine
DX: M54.9 Dorsalgia, unspecified (principal)
CPT/HCPCS: 97110; 97140; 97162

== ENCOUNTER 2022-01-10 07:41 | Observation (INO) | payer MEDICARE, SELFPAY ==
--- NOTE | 2021-12-29 08:46 | EKG12_ITS ---
Test Reason : PRE-OP Blood Pressure : / mmHG Vent. Rate : 058 BPM Atrial Rate : 058 BPM P-R Int : 146 ms QRS Dur : 088 ms QT Int : 400 ms P-R-T Axes : 042 -06 028 degrees QTc Int : 392 ms Sinus bradycardia Otherwise normal ECG Confirmed by FERNANDO BECERRIL, TAMIE ([id number]), metropolitan editor LENORE BE ([id number]) on 12/30/2021 10:12:34 AM Referred By: Rhett Bill Confirmed By:TAMIE KING MD
[2021-12-29 09:20] LABS: Absolute Lymphocyte Count 1.94 X10^3/uL (0.83-4.51); Absolute Neutrophil Count 2.2 X10^3/uL (2.0-7.7); Basophil# 0.05 X10^3/uL; Eosinophil# 0.09 X10^3/uL; Eosinophils% 1.9 % (0-5); Hematocrit 48.7 % (40-54); Hemoglobin 16.1 g/dL (13.0-16.5); Lymphocyte # 1.94 X10^3/ul (0.83-4.51); Lymphocyte % 40.5 % (19-41); Mean Corp Hgb Conc 33.1 g/dL (32-36); Mean Corpuscular Hgb 30.8 pg (27.0-32.0); Mean Corpuscular Volume 93.3 fL (80-94); Mean Platelet Vol. 10.5 fl (6.2-12.0); Monocyte# 0.47 X10^3/uL; Monocyte% 9.8 % (0-10); NRBC Flagged by Analyzer 0 % (0-5); Platelet Count 211 K/mm3 (150-450); RBC Distribution Width CV 13.1 % (11.6-14.6); RBC Distribution Width SD 45.1 fl (35.1-43.9); Red Blood Count 5.22 M/mm3 (4.6-6.2); White Blood Count 4.8 K/mm3 (4.4-11.0)
[2021-12-29 09:40] LABS: Anion Gap 3 (5-15); BUN 16 mg/dL (7-18); BUN/Creat Ratio 15.2 RATIO (10-20); Calcium,Total 8.9 mg/dL (8.5-10.1); Chloride 112 mmol/L (98-107); Creatinine, Serum 1.05 mg/dL (0.70-1.30); EST Glomerular Filtration Rate 75 mL/min (>60); Est Glom Filt Rate - Afr Amer 91 mL/min (>60); Glucose 94 mg/dL (74-106); Potassium 4.1 mmol/L (3.5-5.1); Sodium Level 143 mmol/L (136-145)
[2021-12-29 10:20] LABS: HIV - WCH Non-Reactive (Nonreactive); Hepatitis B Surface Antibody Non-Reactive; Hepatitis C Antibody Non-Reactive (Nonreactive)
[2021-12-30 14:26] LABS: Hepatitis A AB, Total Negative (Negative)
[2021-12-30 14:32] LABS: MG Sendout 2.4 mg/dL (1.6-2.3)
--- NOTE | 2022-01-09 10:13 | PCM.HP.BLA ---
History and Physical Date of Admission: 01/10/22 [facility] Orthopaedics & Sports [id number] [phone] OFFICE VISITDate of Service: 07/11/21 MR#:[id number]:[id number]: THOR BENEDICT [facility] #:[id number]:[id number] Provider:Dr. Rhett Bill DOAge/Sex: 66/M Location:[place]:Signed Intake Vital Signs 07/11/21 14:21 07/11/21 14:31 Height 6 ft 4 in BMI 28.5 Intake Visit Reasons: Lumbar spine Chief Complaint: Follow up Low back pain, blurry vision Allergies No Known Allergies Allergy (Verified 07/11/21 14:27) Medications glucosamine HCl 750 mg tablet 750 mg PO QDAY tab 05/30/18 [History Confirmed 07/11/21] ibuprofen 200 mg tablet 200 mg PO TID-QID PRN 05/30/18 [History Confirmed 07/11/21] multivitamin 1 tab PO DAILY 04/20/21 [History Confirmed 07/11/21] PFSH Medical History (Updated 07/11/21 @ 15:[address] Rhett Bill DO) Hyperlipemia Rheumatoid arthritis Sleep apnea Surgical History History of hemorrhoidectomy Hx of colonoscopy Family History Father Heart disease CVA (cerebral vascular accident) Alcoholism Mother Heart disease Social History Smoking Status: Never smoker alcohol intake: former year quit: 1983 substance use type: former substance user Date of last use: 1983 caffeine: Yes what type of physical activity do you participate in: other details: yard work seatbelt use: always HPI Lumbar spine Details: Parts of this documentation were recorded by a scribe, this documentation accurately reflects the service provided and the decisions made by me, Dr. Rhett Bill DO 07/11/21 2243. THOR BENEDICT is a 66 year old M here today for Lumbar spine pain. Patient states he has numbness from mid marilee down to his foot. Patient states when he walks for too long the bottom of his right foot goes numb. Patient denies any injury done to his back. Patient Carmelina any radiating pain. Patient denies any popping or clicking in his back or hips. Patient states this back pain has been going on for a bout a year now. Patient states he has seen a chiropractor for his back pain. Patient has also been doing some water therapy and he does think it has been helping. Patient has tried the following conservative treatments for six weeks or greater: [RICE, OTC NSAIDs, home exercises provided by a provider, date night caregiver, PT/OT, bracing. Patient has found no relief and would like to further investigate their s/s. Therefore, will order a(n) [TEST/STUDY] to appropriately determine if [tx/sx] would be appropriate for the patient. Thor is a most pleasant gentleman 66 years old has chief complaint of low back pain that often radiates into the right leg seemingly especially the more he walks the more it radiates. This has been going on a good year or perhaps a little longer. There has gradually worsened over time. The more he walks the worse it gets if he sits down he gets relief and the cycle repeats itself over and over again. On examination he has excellent motor strength of all major muscle groups of both lower extremities. He has 1+ Achilles and 1+ patellar reflexes bilaterally. He has no long tract signs. Clonus is absent Babinski's are downgoing. He has no evidence of muscle atrophy. I reviewed plain x-rays of his lumbar spine that demonstrate that he has degenerative disc disease at L5-S1 and a grade 1 spondylolisthesis of L4 on 5. This of course is degenerative in nature. Review of the MRI scan that he had done in April demonstrates that he has severe stenosis at L4-5. This is the proximate cause of all his symptomatology. 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 Functional as he is I think we will start with epidural steroid injections. I am sending him to Dr. Whitney for that purpose. I would like to visit with him 1 week after that is done. Coding Level of Care Code Off vis,new,level 3 Diagnoses Spinal stenosis at L4-L5 level M48.061 Time Spent (min) 35 Assessment and Plan Assessment and Plan (1) Spinal stenosis at L4-L5 level: Status: Acute
[2022-01-10] VITALS (12 sets, daily range): BP systolic 124–171; BP diastolic 72–104; PULSE 46–79; RESP 14–18; TEMP 35.8–36.7; O2SAT 93–100; BMI 28.5
[2022-01-10] MEDS: Lactated Ringers 1,000 ML 15 ML IV (06:08)
[2022-01-10] MEDS: Acetaminophen 500 MG Tablet 1000 MG PO ×3 (06:09→21:59)
[2022-01-10 06:25] LABS: Bedside Glucose 70 mg/dL (70-110)
[2022-01-10] MEDS: Cefazolin 2 GM in 0.9% Normal Saline 100 ML IV (07:26)
--- NOTE | 2022-01-10 08:30 | RAD_ITS ---
STUDY: X-RAY - LUMBAR SPINE REASON FOR EXAM: Male, 66 years old. Back pain LAMINECTOMY DECOMPRESSION L4-5 TECHNIQUE: XR Spine Lumbar 1 View COMPARISON: 07/11/2021 FINDINGS: Normal lumbar lordosis. There is no substantial scoliosis. There is a mild grade 1 anterolisthesis of L4 on L5. Vacuum disc phenomenon at L5-S1. Neuroforaminal stenosis at L5-S1. Surgical instrument points the level of L4-5. There is multilevel endplate spondylosis of the lumbar vertebrae. There is multi-level degenerative disc disease with multi-level disc space narrowing. The soft tissue structures are unremarkable. RAD/Spine 1 View Any Level IMPRESSION: Degenerative changes of the spine, as detailed above. Surgical instrument points the level of L4-5. Electronically Signed: Dakotah Johnson MD at 14:20 EST ,
[2022-01-10] MEDS: THROMBIN (RECOMBINANT) 20,000 UNIT VIAL 20000 UNIT TOPICAL (09:40)
--- NOTE | 2022-01-10 10:09 | PCM.OPRPT ---
Report of Operation Date of Procedure: 01/10/22 Description of Surgical Findings:: Preoperative diagnosis: Severe spinal stenosis L4-5 Postoperative diagnosis: The same Procedure: Complete decompression laminectomy L4-5 CPT code 75786 Surgeon: Dr. Bill volunteer services assistant: Gloria Caldera NP Second dietetic assistant: Yamini bains surgery Anesthesia: General endotracheal anesthesia administered by [facility] Estimated blood loss: Less than 30 cc Drains: Medium Hemovac Complications: None Procedure: Patient was taken to the OR he was placed under general endotracheal anesthesia a Rojo catheter was inserted. Neuro monitoring placed the leads on the patient. The patient was then placed in the prone position on the Brandan frame. After appropriate positioning with care to protect his bony prominences his genitalia the brachial plexus the ulnar nerves of both elbows and the cervical spine and face the back was prepped and draped in standard fashion. I then made a longitudinal incision centered over the area thought to be L4-5. Subcutaneous tissues were incised length of skin incision. I then opened the lumbar fascia first to the left of the spinous processes and elevated the paravertebral muscles of the lamina of L4 and the the top of the lamina of L5. An intraoperative x-ray was taken with a marker in place to confirm that we were indeed at L4-5. This was also confirmed by the radiologist. An open the opposite side elevated paravertebral muscles of the lamina of 4 the top of 5 on the right side. The super slide retractors were then put in place. I removed all remaining soft tissues off of the area with Hever rongeurs and double-action rongeurs. Using double-action rongeur years I removed the spinous process of L4 I also used to thin down the lamina on each side. I used curettes to elevate the ligamentum flavum off the underside of the lamina of L4 and began the laminotomy laminectomy process. This was done using both 3 and 4 mm 45 degree Kerrison rongeurs in this fashion I was able to go all the way up till the end of the ligamentum flavum I then split the ligamentum flavum in the middle and began its removal with 45 degree Kerrison rongeurs on doing both the left and the right side I took down all the way up to the lateral recesses completely decompressing the cauda equina and the L5 nerve root on each side this was checked with hockey-stick probe and was found to be quite open. We note that every 10 to 15 minutes in the course of the case we thoroughly irrigated with copious amounts of sterile saline. I placed an amnionic graft directly over the dura to prevent any adhesions from forming and placed Gelfoam over the top of that a medium Hemovac drain was inserted. I then closed the lumbar fascia using [id number] suture with #1 Vicryl. Click this was followed by the closure of the subcutaneous tissues in layers first with 0 Vicryl the bottom layer and then 2-0 Vicryl in the upper layer and the skin was approximated using skin clips. Sterile dressings were then applied the patient was then recovered in the OR moved to his hospital bed and taken to recovery in satisfactory condition. Is the end of operative summary on Thor Cerrato. Is Dr. Bill dictating.
--- NOTE | 2022-01-10 13:43 | CON.PCM.HO_ITS ---
Assessment & Plan Assessment/Plan (1) Spinal stenosis at L4-L5 level: (2) Hyperlipemia: QUALIFIERS: Hyperlipidemia type: mixed hyperlipidemia Qualified Code(s): E78.2 - Mixed hyperlipidemia PLAN: #SPinal stenosis s/p decompressive laminectomy of L4-L5 * today is POD 0 * management as per spine surgery * on PO tylenol, oxycodone and morphine * PT/OT on board * fall precautions * incentive spirometry * #Bradycardia * Heart rate is down to the 50s. * Patient currently asymptomatic. * Does not have a history of bradycardia. * May be due to anesthesia meds. Will monitor. * #Hyperlipidemia: * not on statin. On niacin, which he says he buys over the counter, and doesnt know why he isnt on a statin. * To follow up with PCP on outpatient basis. #Sleep apnea: stable. Use CPAP at night, but says he sometimes doesnt even use it. CPAP qhs. DVT prophylaxis: as per primary team. SCDs for now Thank you for the courtesy of the consult. The hospitalist team will continue to follow with you. HPI Consult Data Date of Consult: 01/10/22 HPI Narrative HPI Narrative: VINCENZO BENEDICT, is a 66 M with a PMH as outlined who was admitted to the spine surgery service for humbness from mid calf down to his foot. He had tried conservative management for about a year, with no success. Imaging done showed severe spinal stenosis at L4-L5. He had compressive laminectomy of L4-5 on 01/10/2022. Hospitalist service was consulted for medical management. Patient has a history of hyperlipidemia as well. Patient was seen after surgery. He had no active complaints. Pain was well controlled systems otherwise negative. [facility] Medical History (Updated 12/27/21 @ 09:37 by Lillie Desouza) Arthritis Back pain CPAP (continuous positive airway pressure) dependence History of edema History of pain when walking History of rheumatic fever History of steroid therapy Hyperlipemia Kidney stone Leg cramps Non-smoker Rheumatoid arthritis Sleep apnea Wears glasses Home Medications glucosamine HCl 750 mg tablet 750 mg PO QDAY tab 05/30/18 [History Last Taken Unknown] multivitamin 1 tab PO DAILY 04/20/21 [History Last Taken Unknown] ibuprofen 200 mg tablet 400 mg PO TID-QID PRN tab 11/09/21 [History Last Taken Unknown] niacin 50 mg tablet 50 mg PO DAILY 11/09/21 [History Last Taken Unknown] ascorbic acid (vitamin C) [Vitamin C] 500 mg PO DAILY 12/27/21 [History Last Taken Unknown] gabapentin 100 mg PO BID 12/27/21 [History Last Taken 01/10/22] cholecalciferol (vitamin D3) 50 mcg (2,000 unit) capsule 50 mcg PO DAILY 01/04/22 [History Last Taken Unknown] zinc gluconate 100 mg tablet PO 01/04/22 [History Last Taken Unknown] Allergy/AdvReac Type Severity Reaction Status Date / Time No Known Allergies Allergy Verified 01/10/22 06:00 Family History Father Heart disease CVA (cerebral vascular accident) Alcoholism Mother Heart disease Surgical History History of hemorrhoidectomy Hx of colonoscopy Social History Smoking Status: Never smoker alcohol intake: former year quit: 1983 substance use type: former substance user Date of last use: 1983 caffeine: Yes what type of physical activity do you participate in: other details: yard work seatbelt use: always ROS Constitutional Constitutional: Denies anorexia, chills, fatigue, fever(s), malaise or weakness Eyes Eyes: Denies blurry vision ENT HEENT: Reports dysphagia Cardiovascular Cardiovascular: Denies chest pain, dyspnea on exertion, lightheadedness, orthopnea, palpitations, rapid heart rate or syncope Respiratory/Chest Respiratory/Chest: Denies cough, shortness of breath at rest or shortness of breath with exertion Gastrointestinal Gastrointestinal: Denies abdominal pain Genitourinary Genitourinary: Denies burning urination, dysuria or urinary hesitancy Musculoskeletal Musculoskeletal: Denies arthralgias or joint pain Neurologic Neurologic: Reports numbness; Denies confusion, dizziness, focal weakness or headache(s) Psychiatric Psychiatric: Denies anxiety or depression Endocrine Endocrinology: Denies change in body appearance Hematologic/Lymphatic Hematologic/Lymphatic: Denies anemia Physical Exam Const alert, oriented x3, no apparent distress and healthy appearing General Appearance: cooperative HEENT normocephalic, head/scalp atraumatic and moist oral mucous membranes Eyes PERRL, EOMs intact bilaterally and conjunctivae normal Neck no lymphadenopathy and supple Resp normal respiratory effort, no retractions, no use of accessory muscles and clear to auscultation bilaterally Cardio regular rate, regular rhythm, S1 normal heart sound, S2 normal heart sound and no murmurs GI normal to inspection, nondistended, normoactive bowel sounds, soft to palpation, non-tender and non-distended Extremity Extremity Narrative: intact dressing over lower back at surgical site Skin no rashes or lesions noted Neuro oriented x3 and CN's II-XII intact bilaterally Sensorium / Orientation: awake and alert Psych affect normal Lab / Micro Data Result Diagrams: 12/29/21 08:36 12/29/21 08:36 Labs: Laboratory Results - last 24 hr 01/10/22 05:53: POC Glucose 70 Charges/Coding Visit Charges Inpatient E&M: 31849 Subs Hosp L2
[2022-01-10] MEDS: Cefazolin 1 GM/50 ML BAG IV ×2 (15:23→23:27)
[2022-01-10] MEDS: Ensure Surgery 237 ML LIQUID PO ×2 (15:24→17:28)
[2022-01-10] MEDS: Lactated Ringers 1,000 ML 100 ML IV (15:25)
[2022-01-10] MEDS: Gabapentin 100 MG Capsule PO (21:59)
[2022-01-11] MEDS: Lactated Ringers 1,000 ML 100 ML IV (01:17)
--- NOTE | 2022-01-11 03:46 | NURSING ---
PT ROLLED OVER IN BED AND ACCIDENTALLY PULLED OUT HEMOVAC DRAIN. TEXT TO DR CHAVEZ TO AMKE HIM AWARE & ASK IF HE WOULD LIKE THIS NURSE TO CONTACT DR WHITFIELD. AWAITING RETURN CALL.
--- NOTE | 2022-01-11 03:59 | NURSING ---
SPOKE WITH DR CHAVEZ REGARDING HEMOVAC - MD STATES HE WOULD LIKE THIS NURSE TO NOTIFY SURGEON. DR WHITFIELD PAGED VIA OBSTETRICS GYNECOLOGY PHYSICIAN.
[2022-01-11 05:00] VITALS: BP 139/66; PULSE 57; RESP 18; TEMP 36.6; O2SAT 98
[2022-01-11] MEDS: Acetaminophen 500 MG Tablet 1000 MG PO (05:03)
--- NOTE | 2022-01-11 05:17 | NURSING ---
No return call as of yet from Dr Bill. Hospital hydrotel operator patched me through to his cell. Left message on voicemail regarding pt accidentally pulling out hemovac.
--- NOTE | 2022-01-11 05:27 | NURSING ---
received call back from Dr Bill - made him aware of hemovac being pulled out. noted. Continue to monitor drsg for any further drainage.
[2022-01-11] MEDS: Ensure Surgery 237 ML LIQUID PO ×2 (07:50→12:13)
[2022-01-11 09:00] VITALS: BP 153/72; PULSE 62; RESP 18; TEMP 36.4; O2SAT 97
[2022-01-11] MEDS: Gabapentin 100 MG Capsule PO (10:13)
--- NOTE | 2022-01-11 10:35 | CASEMGMT ---
RN LALO Face to Face with patient for initial transition planning/care coordination assessment. RN CM introduced self and role at [facility]. Patient sitting in chair, alert and oriented. Patient willing to participate in assessment and is able to answer all questions appropriately. Care providers, pharmacy, and demographics verified. Patient wishes to discharge home, denies need for home health at this time. Patient states he has no further needs or concerns at this time. CM to follow for discharge planning needs that may arise. PCP: David Vogt Specialists: jessi Bill; Devonte, pain Preferred Pharmacy: [facility] retail at discharge Insurance: [facility] Prescription Benefit: yes Living Will/HPOA: yes, Valerie Cerrato LNOK: Living Arrangements: Patient lives with in a single story home with 4 steps and railing to enter the home. Patient states he was independent at home prior to surgery. Transportation: self DME/HHC: Patient states he has shower chair, raised toilet, grab bars, rollator, and cpap at home. Patient denies previous HHC or SNF. Disposition Plan: Patient to discharge home with family support and follow-up plans in place. Wanda ALONSO, RN, CM
--- NOTE | 2022-01-11 10:40 | CASEMGMT ---
RADHA CM in to complete MIR form with patient. RN LALO explained MIR form to patient, patient voiced understanding. Patient signed MIR form and filed in chart. Patient provided with copy of signed MIR form. Patient had no further questions or concerns at this time.
--- NOTE | 2022-01-11 10:46 | PN.HOSP_ITS ---
Subjective Subjective Patient seen and examined today. He states he accidentally pulled out his surgical drain yesterday. He has no other complaints and pain is well controlled. He denies any fever, chills, nausea vomiting or diarrhea. Review of systems otherwise negative. He has remained hemodynamically stable. Objective Data Objective Data Vital Signs: Vital Signs Temp Pulse Resp BP Pulse Ox 97.6 F L 62 18 153/72 H 97 01/11/22 09:00 01/11/22 09:00 01/11/22 09:00 01/11/22 09:00 01/11/22 09:00 Oxygen Flow Rate (L/min) 2 Oxygen Delivery Method Room Air Weight: 235 lb 0.204 oz Body Mass Index (BMI) 28.5 Intake & Output: Intake and Output for Last 24 Hours 01/09/22 01/10/22 01/11/22 23:59 23:59 23:59 Intake Total 4655.67 / 4655.67 133.33 / 133.33 Output Total 2315 / 2315 430 / 430 Balance 2340.67 / 2340.67 -296.67 / -296.67 Lab / Micro Data Result Diagrams: 12/29/21 08:36 12/29/21 08:36 Micro: Microbiology 12/29/21 08:36 Swab (Method) Nasal Screen MRSA/MSSA - Final Radiography Diagnostic Testing: Radiology Impression Spine X-Ray 01/10/22 08:30 IMPRESSION: Degenerative changes of the spine, as detailed above. Surgical instrument points the level of L4-5. Electronically Signed: Dakotah Johnson MD at 14:20 EST Reading Location ID and State: [facility] / [place] , Service support , Physical Exam Const alert, oriented x3, no apparent distress and healthy appearing General Appearance: cooperative Exam Limitations: no limitations HEENT normocephalic, head/scalp atraumatic and moist oral mucous membranes Head and Scalp: normocephalic Eyes PERRL, EOMs intact bilaterally and conjunctivae normal Neck no lymphadenopathy and supple Resp normal respiratory effort, no retractions, no use of accessory muscles and clear to auscultation bilaterally Cardio regular rate, regular rhythm, S1 normal heart sound, S2 normal heart sound and no murmurs GI normal to inspection, nondistended, normoactive bowel sounds, soft to palpation, non-tender and non-distended Extremity Extremity Narrative: intact dressing over lower back at surgical site Peripheral Pulses: Yes pulses 2+ throughout Skin no rashes or lesions noted Neuro oriented x3 and CN's II-XII intact bilaterally Sensorium / Orientation: awake and alert Psych affect normal Assessment & Plan Assessment/Plan (1) Spinal stenosis at L4-L5 level: (2) Hyperlipemia: QUALIFIERS: Hyperlipidemia type: mixed hyperlipidemia Qualified Code(s): E78.2 - Mixed hyperlipidemia PLAN: #SPinal stenosis s/p decompressive laminectomy of L4-L5 * today is POD 1 * accidentally removed drain last night. * management as per spine surgery * on PO tylenol, oxycodone and morphine * PT/OT on board * fall precautions * incentive spirometry * #Bradycardia * resolved. * #Hyperlipidemia: * not on statin. On niacin, which he says he buys over the counter, and doesnt know why he isnt on a statin. * To follow up with PCP on outpatient basis. #Sleep apnea: stable. Use CPAP at night, but says he sometimes doesnt even use it. CPAP qhs. DVT prophylaxis: as per primary team. SCDs for now Charges/Coding Visit Charges Inpatient E&M: 02356 Subs Hosp L2
[2022-01-11 11:30] VITALS: O2SAT 98
--- NOTE | 2022-01-11 12:55 | PCM.DC.SUM ---
Providers Date of Admission: 01/10/22 Primary Care Physician: Dr. David Vogt, DO Consultations 01/10/22 12:20 Consult: Hospitalist Routine Consulting Provider: Angi Franco Reason for Consult: Medical Management EMERGENT Consult: No MD Notified: Yes Date Notified: 01/10/22 Time Notified: 12:53 Method of Notification: Text Reason For Visit: LUMBAR LAMINECTOMY DECOMPRESSION L4-5 Diagnosis Discharge Diagnosis (1) Spinal stenosis at L4-L5 level: Status: Acute Code(s): M48.061 - Spinal stenosis, lumbar region without neurogenic claudication (2) Hyperlipemia: Status: Chronic Code(s): E78.5 - Hyperlipidemia, unspecified Qualifiers: Hyperlipidemia type: mixed hyperlipidemia Qualified Code(s): E78.2 - Mixed hyperlipidemia Medications at Discharge Home Medications glucosamine HCl 750 mg tablet 750 mg PO QDAY tab 05/30/18 multivitamin 1 tab PO DAILY 04/20/21 ibuprofen 200 mg tablet 400 mg PO TID-QID PRN tab 11/09/21 niacin 50 mg tablet 50 mg PO DAILY 11/09/21 ascorbic acid (vitamin C) [Vitamin C] 500 mg PO DAILY 12/27/21 gabapentin 100 mg PO BID 12/27/21 cholecalciferol (vitamin D3) 50 mcg (2,000 unit) capsule 50 mcg PO DAILY 01/04/22 zinc gluconate 100 mg tablet PO 01/04/22 Hospital Course Summary of Care Provided Hospital Course: Patient is seen on rounds and will be discharged today. He was admitted yesterday 10 January and is being discharged today 11 January on admission yesterday he underwent lumbar laminectomy decompression at L4-5. Today he reports that his leg pain is essentially gone as is his heel pain and he has been up and ambulating with his walker and doing quite well. I change his dressing and removed and the drain unfortunately was pulled out early this morning. There was by accident but it did not hurt anything. I gave him his directions regarding the dressing care when to remove it when he can shower. He also already has an appointment to see me. I will give him hydrocodone 7.5 mg for pain. This is the end of discharge summary on Thor Cerrato.. This is Dr. Bill dictating. Weight / BMI Weight Weight: 235 lb 0.204 oz Body Mass Index (BMI) 28.5 ABG / Lab / Microbiology Data Result Diagrams: 12/29/21 08:36 12/29/21 08:36 Microbiology: Microbiology 12/29/21 08:36 Swab (Method) Nasal Screen MRSA/MSSA - Final Radiography Diagnostic Testing: Radiology Impression Spine X-Ray 01/10/22 08:30 IMPRESSION: Degenerative changes of the spine, as detailed above. Surgical instrument points the level of L4-5. Electronically Signed: Dakotah Johnson MD at 14:20 EST , Meaningful Use Info Meaningful Use Diagnoses (Choose all that apply): None applicable Discharge Plan Admission Admit Date/Time: 01/10/22 07:41 Attending Provider: Rhett Bill Primary Care Provider: David Vogt Consulting Providers: Jaquan Cabrales ; Angi Franco Discharge Orders/Prescriptions Prescriptions: No Action glucosamine HCl 750 mg tablet 750 mg tablet 750 mg PO QDAY RF: 0 ibuprofen 200 mg tablet 400 mg PO TID-QID PRN (Reason: cream) RF: 0 multivitamin [Daily Multi-Vitamin] Tablet 1 tab PO DAILY RF: 0 niacin 50 mg tablet 50 mg PO DAILY RF: 0 cholecalciferol (vitamin D3) 50 mcg (2,000 unit) capsule 50 mcg PO DAILY RF: 0 zinc gluconate 100 mg tablet PO RF: 0 ascorbic acid (vitamin C) [Vitamin C] 500 mg Tablet 500 mg PO DAILY RF: 0 gabapentin 100 mg capsule 100 mg PO BID RF: 0 Referrals / Follow Up: David Vogt, DO [Primary Care Provider] - Disposition Disposition (needs filled in before D/C Order can be placed): Home, Self Care
[2022-01-11 12:59] VITALS: BP 153/72; PULSE 62; RESP 18; TEMP 36.4; O2SAT 97
== END 2022-01-11 13:46 | disposition home or self-care (01) ==
LOC: SDC 10:38 → MS3 10:38
PROVIDERS: Anesthesiology; Admitting Provider Orthopaedic Surgery; PCP Family Medicine; Referring Provider Orthopaedic Surgery; Visit Provider Orthopaedic Surgery
PROC: (CPT 63030; principal; 2022-01-10 07:00)
DX: M48.061 Spinal stenosis, lumbar region without neurogenic claudication (principal); M06.9 Rheumatoid arthritis, unspecified; E78.2 Mixed hyperlipidemia; H53.8 Other visual disturbances; M43.16 Spondylolisthesis, lumbar region; M51.37 Other intervertebral disc degeneration, lumbosacral region; Z79.899 Other long term (current) drug therapy; G47.30 Sleep apnea, unspecified; M19.90 Unspecified osteoarthritis, unspecified site; R00.1 Bradycardia, unspecified
CPT/HCPCS: 63047; 00670; 36415; 72020; 80048; 82962; 83735; 85025; 86703; 86706; 86708; 86803; 87081; 93005; 94762; 96361; 96365; 96366; 97161; 97530; 99218; 99251; J7120; G0378; G0463; J2405

== ENCOUNTER → 2022-11-23 | Outpatient (CLI) | payer MEDICARE, SELFPAY ==
[2022-11-23 12:19] LABS: Absolute Lymphocyte Count 1.51 X10^3/uL (0.83-4.51); Absolute Neutrophil Count 2.6 X10^3/uL (2.0-7.7); Basophil# 0.06 X10^3/uL; Basophil% 1.2 % (0-1); Eosinophil# 0.09 X10^3/uL; Eosinophils% 1.9 % (0-5); Hematocrit 46.8 % (40-54); Lymphocyte # 1.51 X10^3/ul (0.83-4.51); Lymphocyte % 31.4 % (19-41); Mean Corp Hgb Conc 32.1 g/dL (32-36); Mean Corpuscular Hgb 30.1 pg (27.0-32.0); Mean Corpuscular Volume 93.8 fL (80-94); Mean Platelet Vol. 11.3 fl (6.2-12.0); Monocyte# 0.48 X10^3/uL; NRBC Flagged by Analyzer 0 % (0-5); Neutrophil # 2.64 X10^3/uL (2.7-7.7); Neutrophil % 54.9 % (47-70); Platelet Count 247 K/mm3 (150-450); RBC Distribution Width CV 13.6 % (11.6-14.6); RBC Distribution Width SD 46.6 fl (35.1-43.9); Red Blood Count 4.99 M/mm3 (4.6-6.2); White Blood Count 4.8 K/mm3 (4.4-11.0)
[2022-11-23 12:56] LABS: AST(SGOT) 19 U/L (15-37); Alanine Aminotransfer ALT/SGPT 31 U/L (16-61); Albumin, Serum 3.4 g/dL (3.2-5.0); Alkaline Phosphatase 93 U/L (45-117); Anion Gap 4 (5-15); BUN 17 mg/dL (7-18); BUN/Creat Ratio 17.1 RATIO (10-20); Calcium,Total 8.9 mg/dL (8.5-10.1); Chloride 109 mmol/L (98-107); EST Glomerular Filtration Rate 79 mL/min (>60); Est Glom Filt Rate - Afr Amer 96 mL/min (>60); Globulin 3.3 g/dL (2.2-4.2); Glucose 109 mg/dL (74-106); Potassium 4.3 mmol/L (3.5-5.1); Protein, Total 6.7 g/dL (6.4-8.2); Sodium Level 141 mmol/L (136-145); Thyroid Stim Hormone (TSH) 0.99 uIU/mL (0.358-3.74)
== END | disposition home or self-care (01) ==
LOC: BIMLAB 10:36
PROVIDERS: PCP Family Medicine; Referring Provider Physician Assistant; Visit Provider Physician Assistant
DX: E78.2 Mixed hyperlipidemia (principal); R19.7 Diarrhea, unspecified
CPT/HCPCS: 36415; 80053; 84443; 85025

== ENCOUNTER → 2022-11-24 | Outpatient (CLI) | payer MEDICARE, SELFPAY | END | disposition home or self-care (01) | LOC: BIMLAB 09:30 → LABSPEC 09:31 | PROVIDERS: PCP Family Medicine; Referring Provider Physician Assistant; Visit Provider Physician Assistant | DX: R19.7 Diarrhea, unspecified (principal); K58.9 Irritable bowel syndrome, unspecified | CPT/HCPCS: 82274; 83630; 87493; 87506 ==

== ENCOUNTER → 2022-12-13 | Outpatient (CLI) | payer MEDICARE, SELFPAY | END | disposition home or self-care (01) | LOC: BIMLAB 09:58 | PROVIDERS: PCP Family Medicine; Referring Provider Family Medicine; Visit Provider Family Medicine | DX: R39.15 Urgency of urination (principal) | CPT/HCPCS: 36415; 84153 ==

== ENCOUNTER 2022-12-22 17:40 | Emergency (ER) | payer MEDICARE, SELFPAY ==
[2022-12-22 17:41] VITALS: BP 137/93; PULSE 90; RESP 16; TEMP 36.6; O2SAT 98; BMI 27.7
[2022-12-22 19:42] LABS: Mucous, Urine 0 SEEN /hpf (<or=2+); Red Blood Cells-Urine 0 SEEN /hpf (0-5); Squamous Epithelial Cells - UA 0 SEEN /hpf (0-5)
[2022-12-22 19:45] LABS: Color, Urine Yellow (Yellow); Glucose, Dipstick Normal (Normal); Ketone-Dipstick 15 mg/dl (Negative); Leukocyte Esterase-Dipstick 500 /ul (Negative); Nitrite-Dipstick Positive (Negative); Occult Blood-Urine 150 /ul (Negative); Protein-Dipstick 100 mg/dl (Negative); Urine Bilirubin Dipstick Negative (Negative); Urine Clarity Cloudy (Clear); Urine Urobilinogen Normal (Normal)
[2022-12-22 19:54] LABS: Bacteria 2+ /hpf (None Seen); White Blood Cells >100 SEEN /hpf (0-5)
--- NOTE | 2022-12-22 21:02 | EDS_ITS ---
HPI History of Present Illness Chief Complaint: Complaint Informant: patient, spouse/S.O. and family Narrative Narrative: Patient presents with urinary retention. He states ever since October he has been having to go to the bathroom more frequently. He goes less volume. But he has never had pain or inability to go. He does get up at night to go. He had a catheter once before but this was because he had back surgery and not due to enlarged prostate. He was seen recently by his physician. He was told he has enlarged prostate. It sounds like they did a PSA. They started him on tamsulosin. I did review his outpatient note by Dr. Vogt. There was an elevated PSA and they were going to have him follow-up with urology. The patient actually has an appointment with Dr. Prabhakar this . He came in today because he could not urinate at all. Catheter has been placed in his symptoms of lower abdominal/pelvic pressure are completely resolved. [facility] Medical History Arthritis Back pain CPAP (continuous positive airway pressure) dependence History of edema History of pain when walking History of rheumatic fever History of steroid therapy Hyperlipemia Kidney stone Leg cramps Non-smoker Rheumatoid arthritis Sleep apnea Wears glasses Home Medications glucosamine HCl 750 mg tablet 750 mg PO QDAY 05/30/18 [History Last Taken Unknown] multivitamin (Daily Multi-Vitamin tablet) 1 tab PO DAILY 04/20/21 [History Last Taken Unknown] ibuprofen 200 mg tablet 400 mg PO TID-QID PRN cream 11/09/21 [History Last Taken Unknown] niacin 50 mg tablet 50 mg PO DAILY 11/09/21 [History Last Taken Unknown] ascorbic acid (vitamin C) 500 mg tablet (Vitamin C) 500 mg PO DAILY 12/27/21 [History Last Taken Unknown] gabapentin 100 mg capsule 100 mg PO BID 12/27/21 [History Last Taken 01/10/22] cholecalciferol (vitamin D3) 50 mcg (2,000 unit) capsule 50 mcg PO DAILY 0 01/04/22 [History Last Taken Unknown] zinc gluconate 100 mg tablet PO 01/04/22 [History Last Taken Unknown] dicyclomine 10 mg capsule 10 mg PO BID #30 caps 12/13/22 [Rx Last Taken Unknown] tamsulosin 0.4 mg capsule 0.4 mg PO DAILY #90 caps 12/13/22 [Rx Last Taken Unknown] cephalexin 500 mg capsule 500 mg PO TID 10 days #30 CAPSULES 12/22/22 [Rx Last Taken Unknown] Allergy/AdvReac Type Severity Reaction Status Date / Time No Known Allergies Allergy Verified 12/22/22 17:43 Family History Father Heart disease CVA (cerebral vascular accident) Alcoholism Mother Heart disease Surgical History History of back surgery History of hemorrhoidectomy Hx of colonoscopy Social History Smoking Status: Never smoker alcohol intake: former year quit: 1983 substance use type: former substance user Date of last use: 1983 caffeine: Yes what type of physical activity do you participate in: other details: yard work seatbelt use: always ROS ROS ED Constitutional Constitutional ED: Denies chills, fever(s), subjective or sweats ENT ENT ED: Denies rhinorrhea Cardiovascular Cardiovascular: Denies chest pain or palpitations Respiratory/Chest Respiratory/Chest: Denies cough or dyspnea Gastrointestinal Gastrointestinal: Reports abdominal pain; Denies nausea or vomiting Genitourinary Genitourinary ED: Reports urinary frequency and other Details: See HPI Musculoskeletal Musculoskeletal: Denies back pain Neurologic Neurologic: Denies paresthesias or weakness Hematologic/Lymphatic Hematologic/Lymphatic: Denies easy bleeding or easy bruising EXAM Physical Exam Narrative Exam Narrative: Patient awake alert no acute distress. He has a catheter in at this time that has drained well. HEENT shows no trauma. Mucous membranes are moist Eyes show no icterus. Neck shows no JVD Lungs are clear bilaterally Heart is regular. Peripheral pulses are equal. Abdomen is soft and no tenderness at this time. I had been in a critical patient and did not feel his abdomen prior to the catheter placement though. no CVA tenderness or suprapubic tenderness or fullness now. He has a catheter in place. It is draining well. He has yellowish urine with no sign of blood. Skin shows no rash pallor or diaphoresis. Const Vital Signs: 12/22/22 17:41 Temperature 97.8 F Temperature Source Temporal Pulse Rate 90 Respiratory Rate 16 Blood Pressure 137/93 H Blood Pressure Mean 107 Pulse Ox 98 Oxygen Delivery Method Room Air MDM MDM MDM Narrative Medical decision making narrative: Patient already has follow-up with urology. He has known BPH and they just started his tamsulosin. I will have him continue this. We will add antibiotics. He has no allergies. His symptoms of pressure have resolved with the catheter. His urine shows some slightly cloudy urine with positive nitrites leukocyte Estrace and greater than 100 white cells with 2+ bacteria. This is consistent with a UTI. I think it is more likely that the ongoing obstruction has allowed a UTI to develop due to poor emptying. Patient otherwise feels fine though. He has been eating and drinking with no fevers or chills. He is asymptomatic now. I do not think blood work will be needed. I do not think he needs admission for UTI. He is now decompressed and we will get him started on antibiotics. I will start him on a dose here. He will call his urologist Sunday to notify them that he had a catheter placed on Sunday evening. They can decide if they want to keep him coming in or sooner. Lab Data Labs: Laboratory Results - last 24 hr 12/22/22 19:25 Urine Color Yellow Urine Clarity Cloudy Urine pH 6.0 Ur Specific [place] 1.020 Urine Protein 100 H Urine Glucose (UA) Normal Urine Ketones 15 H Urine Occult Blood 150 H Urine Nitrite Positive H Urine Bilirubin Negative Urine Urobilinogen Normal Ur Leukocyte Esterase 500 H Urine RBC 0 SEEN Urine WBC >100 SEEN Ur Squamous Epith Cells 0 SEEN Urine Bacteria 2+ Urine Mucus 0 SEEN Discharge Plan Triage Chief Complaint: Complaint ED Provider: Giuseppe Hinkle Dx/Rx/DC Orders Clinical Impression: Acute urinary obstruction, Urinary tract infection, History of BPH, Benign prostatic hyperplasia Instructions: Urinary Tract Infections in Men, ED Rojo Catheter, Care Prescriptions: New cephalexin [cephalexin] 500 mg capsule 500 mg PO TID 10 Days Qty: 30 0RF No Action glucosamine HCl 750 mg tablet 750 mg tablet 750 mg PO QDAY ibuprofen 200 mg tablet 400 mg PO TID-QID PRN (Reason: cream) multivitamin [Daily Multi-Vitamin] Tablet 1 tab PO DAILY niacin 50 mg tablet 50 mg PO DAILY cholecalciferol (vitamin D3) 50 mcg (2,000 unit) capsule 50 mcg PO DAILY zinc gluconate 100 mg tablet PO tamsulosin 0.4 mg capsule 0.4 mg PO DAILY Qty: 90 1RF dicyclomine 10 mg capsule 10 mg PO BID Qty: 30 2RF ascorbic acid (vitamin C) [Vitamin C] 500 mg Tablet 500 mg PO DAILY gabapentin 100 mg capsule 100 mg PO BID Primary Care Provider: David Vogt Referrals: David Vogt DO [Primary Care Provider] - Santiago Prabhakar MD [Med Staff - Active Staff] - Keep Sybil appointment Disposition Disposition: Home, Self Care
[2022-12-22] MEDS: Cephalexin 250 MG Capsule 500 MG PO (21:24)
== END 2022-12-22 21:36 | disposition home or self-care (01) ==
PROVIDERS: Emergency Provider Emergency Medicine; PCP Family Medicine; Visit Provider Emergency Medicine
DX: N13.6 Pyonephrosis (principal); E78.5 Hyperlipidemia, unspecified; R33.9 Retention of urine, unspecified; N40.0 Benign prostatic hyperplasia without lower urinary tract symptoms; R97.20 Elevated prostate specific antigen [PSA]
CPT/HCPCS: 81001; 99283

== ENCOUNTER → 2023-06-04 | Outpatient (CLI) | payer MEDICARE, SELFPAY ==
[2023-06-04 15:41] LABS: PSA,Total - Annual Screen 1.53 ng/mL (0.00-4.00)
== END | disposition home or self-care (01) ==
LOC: LAB 14:30
PROVIDERS: PCP Family Medicine; Referring Provider Urology; Visit Provider Urology
DX: Z12.5 Encounter for screening for malignant neoplasm of prostate (principal)
CPT/HCPCS: 36415; 84153; G0103

== ENCOUNTER → 2024-04-16 | Outpatient (CLI) | payer MEDICARE, SELFPAY ==
[2024-04-16 12:39] LABS: Absolute Lymphocyte Count 1.43 X10^3/uL (0.83-4.51); Absolute Neutrophil Count 3.5 X10^3/uL (2.0-7.7); Basophil# 0.06 X10^3/uL; Basophil% 1.1 % (0-1); Eosinophil# 0.07 X10^3/uL; Eosinophils% 1.3 % (0-5); Hematocrit 49.9 % (40-54); Hemoglobin 16.1 g/dL (13.0-16.5); Lymphocyte # 1.43 X10^3/ul (0.83-4.51); Lymphocyte % 25.8 % (19-41); Mean Corp Hgb Conc 32.3 g/dL (32-36); Mean Corpuscular Hgb 30.8 pg (27.0-32.0); Mean Corpuscular Volume 95.4 fL (80-94); Mean Platelet Vol. 11.3 fl (6.2-12.0); Monocyte# 0.45 X10^3/uL; Monocyte% 8.1 % (0-10); NRBC Flagged by Analyzer 0 % (0-5); Neutrophil # 3.45 X10^3/uL (2.7-7.7); Neutrophil % 62.1 % (47-70); Platelet Count 200 K/mm3 (150-450); RBC Distribution Width CV 13.4 % (11.6-14.6); RBC Distribution Width SD 47.6 fl (35.1-43.9); Red Blood Count 5.23 M/mm3 (4.6-6.2); White Blood Count 5.6 K/mm3 (4.4-11.0)
[2024-04-16 15:54] LABS: ALB/GLOB Ratio 1.1 RATIO (0.9-2.4); AST(SGOT) 29 U/L (15-37); Alanine Aminotransfer ALT/SGPT 28 U/L (16-61); Albumin, Serum 3.1 g/dL (3.2-5.0); Alkaline Phosphatase 72 U/L (45-117); Anion Gap 5 (5-15); BUN 17 mg/dL (7-18); BUN/Creat Ratio 17.8 RATIO (10-20); Calcium,Total 8.6 mg/dL (8.5-10.1); Chloride 109 mmol/L (98-107); Cholesterol 167 mg/dL (200); Creatinine, Serum 0.96 mg/dL (0.70-1.30); EST Glomerular Filtration Rate 83 mL/min (>60); Est Glom Filt Rate - Afr Amer 100 mL/min (>60); Globulin 2.9 g/dL (2.2-4.2); Glucose 110 mg/dL (74-106); High Density Lipoprotein 40 mg/dL; Potassium 4.6 mmol/L (3.5-5.1); Sodium Level 141 mmol/L (136-145); Triglycerides 256 mg/dL; Very Low Density Lipoprotein 51 mg/dL (5-40)
== END | disposition home or self-care (01) ==
PROVIDERS: PCP Family Medicine; Referring Provider Physician Assistant; Visit Provider Physician Assistant
DX: R60.0 Localized edema (principal); E78.5 Hyperlipidemia, unspecified
CPT/HCPCS: 36415; 80053; 80061; 85025

== ENCOUNTER → 2025-04-20 | Outpatient (CLI) | payer MEDICARE, SELFPAY ==
[2025-04-20 18:05] LABS: Absolute Lymphocyte Count 1.73 X10^3/uL (0.83-4.51); Absolute Neutrophil Count 2.2 X10^3/uL (2.0-7.7); Basophil# 0.05 X10^3/uL; Basophil% 1.1 % (0-1); Eosinophil# 0.08 X10^3/uL; Eosinophils% 1.7 % (0-5); Hematocrit 48.1 % (40-54); Hemoglobin 16.1 g/dL (13.0-16.5); Lymphocyte # 1.73 X10^3/ul (0.83-4.51); Lymphocyte % 37.4 % (19-41); Mean Corp Hgb Conc 33.5 g/dL (32-36); Mean Corpuscular Hgb 31.1 pg (27.0-32.0); Mean Corpuscular Volume 92.9 fL (80-94); Monocyte# 0.52 X10^3/uL; Monocyte% 11.2 % (0-10); NRBC Flagged by Analyzer 0 % (0-5); Neutrophil # 2.19 X10^3/uL (2.7-7.7); Neutrophil % 47.3 % (47-70); Platelet Count 199 K/mm3 (150-450); RBC Distribution Width CV 13.6 % (11.6-14.6); RBC Distribution Width SD 46.6 fl (35.1-43.9); Red Blood Count 5.18 M/mm3 (4.6-6.2); White Blood Count 4.6 K/mm3 (4.4-11.0)
[2025-04-20 18:50] LABS: Erythrocyte Sedimentation Rate 3 mm/hr (0-20)
[2025-04-20 19:15] LABS: CRP < 3.00 mg/L (0.0-3.0)
== END | disposition home or self-care (01) ==
LOC: MTLAB 14:14
PROVIDERS: PCP Family Medicine; Referring Provider Ophthalmology; Visit Provider Ophthalmology
DX: G45.3 Amaurosis fugax (principal); H53.451 Other localized visual field defect, right eye
CPT/HCPCS: 36415; 85025; 85652; 86140

== ENCOUNTER → 2025-04-29 | Outpatient (CLI) | payer MEDICARE, SELFPAY ==
--- NOTE | 2025-04-29 09:20 | CDU_ITS ---
Reason For Study Reason For Study: Amaurosis Fugax Rt. Velocities/BP Lt. Velocities/BP Prox CCA 101.1/12.6 cm/sec. Prox CCA 104.7/24.9 cm/sec. Mid CCA 92.5/13.9 cm/sec. Mid CCA 76.5/18.8 cm/sec. Dist CCA 66.3/17.9 cm/sec. Dist CCA 69.1/20.0 cm/sec. Prox ICA 50.9/14.2 cm/sec. Prox ICA 56.0/15.4 cm/sec. Mid ICA 70.9/23.8 cm/sec. Mid ICA 70.2/20.1 cm/sec. Dist ICA 77.9/30.8 cm/sec. Dist ICA 76.8/24.8 cm/sec. Rt. ICA/CCA = 0.8. Lt. ICA/CCA = 1.0. Prox ECA 94.9/9.0 cm/sec. Prox ECA 72.8/7.7 cm/sec. Rt. Vert. 32.5/8.1 cm/sec. Lt. Vert. 47.9/15.9 cm/sec. Right Extracranial There is intimal thickening but no significant atherosclerotic plaque noted in the right common carotid artery. There is intimal thickening but no significant atherosclerotic plaque noted in the right internal carotid artery. There is intimal thickening but no significant atherosclerotic plaque noted in the right external carotid artery. Antegrade flow is noted in the right vertebral artery. Left Extracranial There is intimal thickening but no significant atherosclerotic plaque noted in the left common carotid artery. There is intimal thickening but no significant atherosclerotic plaque noted in the left internal carotid artery. There is intimal thickening but no significant atherosclerotic plaque noted in the left external carotid artery. Antegrade flow is noted in the left vertebral artery. Procedure Carotid Duplex 18398. This is a Carotid Duplex examination using B-mode, color flow and specral Doppler. Exam performed in department. VL/Carotid Duplex Ultrasound Interpretation Summary Normal right extracranial internal carotid. Normal left extracranial internal carotid. Patent and antegrade vertebrals bilaterally. Ordering Physician: Ulysses Crystal Referring Physician: Ran Vogt M.D. Performed By: Kaleigh Alvarado RVT
--- OUTSIDE RECORDS SUMMARY | 2025-04-29 12:50 | XMS RPT_ITS | CCD ---
Author Organization [facility] Care Team Providers Care Sybase Developer Name Role Phone Dr. Bashir Vogt Primary Care Provider [phone] Dr. Bashir Vogt Referring Provider DONNA Bill Attending Provider Dr. Bashir Hernandez Attending Provider BASHIR VOGT DO Primary Care Physician Dr. Bashir Vogt Primary Care Provider [phone] Dr. Bashir Vogt Attending Provider [phone] Bashir Vogt Referring Provider COLBY FLORES Attending Unavailable BASHIR VOGT DO Primary Care Unavailable LEIGH ANN BECERRIL, DR DAWIT Yanes Attending UnavailBASHIR Stark DO R Primary Care Unavailable LEIGH ANN BECERRIL, DR DAWIT Yanes Attending UnavailBASHIR Stark DO Primary Care Unavailable EMMETT MOSS MD Attending Unavailable BAHSIR VOGT DO R Primary Care Unavailable LEIGH ANN BECERRIL, DR DAWIT Yanes Attending Unavailab BASHIR Victoria DO R Primary Care Unavailable LEIGH ANN BECERRIL, DR DAWIT Yanes Attending Unavailab BASHIR Victoria DO R Primary Care Unavailable BASHIR VOGT DO R Primary Care Unavailable LAINA PELLETIER PA-C W Attending Unavailable LIEGH ANN BECERRIL, DR DAWIT Yanes Attending Unavailab BASHIR Victoria DO Primary Care Unavailable LEIGH ANN BECERRIL, DR DAWIT Yanes Attending Unavailab BASHIR Victoria DO R Primary Care Unavailable Dr. Bashir Vogt DO Primary Care Provider [phone] Dr. Ulysses Crystal MD Attending Provider Dr. Ulysses Crystal MD Referring Provider Bashir Vogt Attending Unavailable Bashir Vogt Primary Care Unavailable Bashir Vogt R Referring Unavailable Bashir Vogt R Primary Care Unavailable Dawit Yang Attending Unavailable Bashir Vogt Referring Unavailable Bashir Vogt Primary Care Unavailable Ulysses Crystal Referring Unavailable Ulysses Crystal Attending Unavailable Medications Current Medications Medication Drug Class(es) Dates Sig (Normalized) Sig (Original) acetaminophen 325 mg / HYDROcodone bitartrate 5 mg oral tablet (1 source) Opioid Agonist Start: 02-15-2024 End: 02-18-2024 take 1 tablet by mouth every six hours as needed for pain [place] 325- 5 mg oral tablet Dose = 2 tab(s), Oral, q6h, PRN for pain, X 3 day(s), # 12 tab(s), 0 Refill(s), Knee sprain, 101 Start Date: 02/15/24 Stop Date: 02/18/24 Status: Ordered cholecalciferol 0.05 mg oral capsule (7 sources) Vitamin D Start: 09-02-2024 take 1 capsule by mouth once daily Cholecalciferol (Vitamin D3) 50 mcg (2,000 unit) capsule Active 50 ug PO daily September 02, 2024 12:00am Start: 01-04-2022 End: 04-16-2024 take 1 capsule by mouth once daily Cholecalciferol (Vitamin D3) 50 mcg (2,000 unit) capsule Discontinued 50 ug PO DAILY January 04, 2022 1:00am April 16, 2024 10:23am ciprofloxacin 500 mg oral tablet (1 source) Quinolone Antimicrobial Start: 01-03-2023 End: 01-08-2023 Cipro 500 mg oral tablet Dose : 500 mg = 1 tab(s), Oral, q12h, X 5 day(s), # 10 tab(s), 0 Refill(s), 01/08/23 15:01:00 EST, Pharmacy: [facility]/pharmacy #[id number], 188, cm, 01/03/23 12:57:00 EST, Height, 101 Start Date: 01/03/23 Stop Date: 01/08/23 Status: Ordered Fish Oils (4 sources) Start: 01-02-2023 Fish Oil 1000 mg oral capsule Dose : 1,000 mg = 1 cap(s), Oral, qDay, # 90 cap(s), 0 Refill(s) Start Date: 01/02/23 Status: Ordered glucosamine hydrochloride 750 mg oral tablet (6 sources) Start: 05-30-2018 take 1 tablet by mouth once daily Glucosamine Hcl 750 mg tablet Active 750 mg PO daily May 30, 2018 12:00am Glucosamine Chondroitin Advanced oral tablet (4 sources) Start: 09-01-2024 take 1 tablet by mouth once daily at mealtime Glucosamine Chondroitin Advanced oral tablet Dose = 3 tab(s), Oral, qDay, with food, # 120 tab(s), 0 Refill(s) Start Date: 09/01/24 Status: Ordered Quantity: 120.0 Unit: tab(s) Repeat number: 1 Start: 09-01-2024 take 1 tablet by kobi th once daily at mealtime Glucosamine Chondroitin Advanced oral tablet Dose = 3 tab(s), Oral, qDay, with food, # 120 tab(s), 0 Refill(s) Start Date: 09/01/24 Status: Ordered Multivitamin (Daily Multi-Vitamin) tablet (6 sources) Start: 04-20-2021 Multivitamin ( Daily Multi-Vitamin) tablet Active 1 {tbl} PO DAILY April 20, 2021 12:00am Start: 04-20-2021 take 1 tablet by kobi th once daily Multivitamin (Daily Multi-Vitamin) tablet Active 1 TABLET PO DAILY April 20, 2021 12:00am Start: 04-20-2021 take 1 tablet by kobi th once daily Multivitamin (Daily Multi-Vitamin) tablet Active 1 TABLET PO DAILY April 19, 2021 11:00pm Multivitamin preparation (4 sources) Start: 01-02-2023 take 1 tablet by mouth once daily Multivitamin Dose = 1 tab(s), Oral, Daily, 0 Refill(s) Start Date: 01/02/23 Status: Ordered Vitamin C 500 mg oral tablet (4 sources) Start: 01-02-2023 Vitamin C 500 mg oral tablet Dose : 500 mg = 1 tab(s), Oral, qDay, # 30 tab(s), 0 Refill(s) Start Date: 01/02/23 Status: Ordered Vitamin D3 (4 sources) Start: 09-01-2024 Vitamin D3 Dos e : 50 mcg = 1 cap(s), Oral, Daily, # 30 cap(s), 0 Refill(s) Start Date: 09/01/24 Status: Ordered Quantity: 30.0 Unit: cap(s) Repeat number: 1 Start: 09-01-2024 Vitamin D3 Dos e : 50 mcg = 1 cap(s), Oral, Daily, # 30 cap(s), 0 Refill(s) Start Date: 09/01/24 Status: Ordered Zinc (4 sources) Start: 01-02-2023 Zinc 140 mg (a s elemental zinc 50 mg) oral tablet Dose : 140 mg = 1 tab(s), Oral, qDay, # 90 tab(s), 0 Refill(s) Start Date: 01/02/23 Status: Ordered Completed/Discontinued Medications Medication Drug Class(es) Dates Sig (Normalized) Sig (Original) ascorbic acid 500 mg oral tablet (6 sources) Vitamin C Start: 12-27-2021 End: 04-16-2024 take 1 tablet by mouth once daily Ascorbic Acid (Vitamin C) (Vitamin C) 500 mg Tablet Discontinued 500 mg PO DAILY December 27, 2021 1:00am April 16, 2024 10:23am atorvastatin 10 mg oral tablet (20 sources) HMG-CoA Reductase Inhibitor Start: 09-20-2018 End: 07-11-2021 take 1 tablet by mouth once daily Atorvastatin 10 mg tablet Discontinued 10 mg PO DAILY April 22, 2019 1:25pm July 23, 2019 9:29am benzonatate 200 mg oral capsule (1 source) Non-narcotic Antitussive Start: 08-11-2024 End: 09-02-2024 take 1 capsule by mouth three times daily as needed for cough Benzonatate 200 mg capsule Discontinued 200 mg PO THREE TIMES A DAY as needed for cough August 11, 2024 12:00am September 02, 2024 2:44pm cephalexin 500 mg oral capsule (4 sources) Cephalosporin Antibacterial Start: 12-22-2022 End: 05-23-2023 take 1 capsule by mouth three times daily Cephalexin 500 mg capsule Discontinued 500 mg PO THREE TIMES A DAY 17 09December 22, 2022 1:00am May 23, 2023 3:28pm Compress.Stocking,K nee,Reg,Med (5 sources) Start: 07-09-2018 End: 07-11-2021 Compress.Stocking, Knee,Reg,Med Discontinued 0 .ROUTE .MEDSUPPLY 2 July 09, 2018 12:00am July 11, 2021 2:30pm wear daily for lower extremity edema 20-30 mmhg Start: 07-09-2018 End: 07-11-2021 Compress.Stocking,Knee,Reg,M ed Discontinued 0 .ROUTE .MEDSUPPLY 2 July 08, 2018 11:00pm July 11, 2021 1:30pm wear daily for lower extremity edema 20-30 mmhg Compress.Stocking,Knee,Reg,M ed misc (1 source) Start: 07-09-2018 End: 07-11-2021 Compress.Stocking,Knee,Reg,M ed misc Discontinued 0 .ROUTE .MEDSUPPLY 2 July 09, 2018 12:00am July 11, 2021 2:30pm wear daily for lower extremity edema 20-30 mmhg dicyclomine hydrochloride 10 mg oral capsule (13 sources) Mary oquendo gic Start: 12-13-2022 End: 05-23-2023 take 1 capsul e by mouth twice daily Dicyclomine 10 mg capsule Discontinued 10 mg PO TWICE A DAY 60 December 26, 2022 9:58am May 23, 2023 3:28pm docusate sodium 50 mg / sennosides, senior care 8.6 mg oral tablet (6 sources) Start: 05-30-2018 End: 07-04-2019 Sennosides-Docusate Sodium (Senna With Docusate Sodium) 8.6-50 mg tablet Discontinued 1 {tbl} PO TWICE A DAY as needed for constipation 60 May 30, 2018 12:00am July 04, 2019 2:04pm gabapentin 100 mg oral capsu le (6 sources) Anti-e pilept ic Agent Start: 12-27-2021 End: 04-16-2024 take 1 capsul e by mouth twice daily Gabapentin 100 mg capsule Discontinued 100 mg PO TWICE A DAY December 27, 2021 1:00am April 16, 2024 10:23am hydrocortisone 10 mg/ml topi marilee cream (6 sources) Cortic ostero id Start: 05-30-2018 End: 07-09-2018 Hydrocortisone (Preparation H Hydrocortisone) 1 % cream Discontinued 1 NMA TOPICAL 2 to 4 times per day as needed for skin irritation 42 May 30, 2018 12:00am July 09, 2018 10:42am ibuprofen 200 mg oral tablet (12 sources) Nonste roidal Anti-i nflamm atory Drug Start: 11-09-2021 take 400 mg by mouth three to four times daily Ibuprofen Active 400 MG PO 3 to 4 times per day November 09, 2021 3:29pm Start: 05-30-2018 End: 09-02-2024 Ibuprofen 200 mg tablet Disc ontinued 400 mg PO 3 to 4 times per day as needed for cream November 09, 2021 3:29pm September 02, 2024 2:44pm methylPREDNISolone 4 mg oral tablet (1 source) Corticosteroid Start: 08-11-2024 End: 09-02-2024 take 1 tablet by mouth once Methylprednisolone (Medrol (Mateo)) 4 mg tablets,dose pack Discontinued 0 PO per package directions August 11, 2024 12:00am September 02, 2024 2:41pm PO PER PKG DIR niacin 50 mg oral tablet (10 sources) Nicotinic Acid Start: 11-09-2021 End: 04-16-2024 take 1 tablet by mouth once daily Niacin 50 mg tablet Discontinued 50 mg PO DAILY November 09, 2021 1:00am April 16, 2024 10:23am nystatin 100 unt/mg topical powder (6 sources) Polyene Antifungal Start: 05-06-2020 End: 04-20-2021 Nystatin 100,000 unit/gram powder Discontinued 1 NMA TOPICAL TWICE A DAY May 06, 2020 12:00am April 20, 2021 8:54am Start: 05-06-2020 End: 04-20-2021 Nystatin Discontinued 1 APPL IC TOPICAL TWICE A DAY May 06, 2020 12:00am April 20, 2021 8:54am [place]-3 Fatty Acids (Fish Oil Concentrate) 1,000 mg capsule (6 sources) Start: 05-30-2018 End: 04-20-2021 take 1 capsule by mouth once daily [place]-3 Fatty Acids (Fish Oil Concentrate) 1,000 mg capsule Discontinued 1000 mg PO daily May 30, 2018 12:00am April 20, 2021 8:53am Start: 05-30-2018 End: 04-20-2021 take 1 capsule by mouth once daily [place]-3 Fatty Acids (Fish Oil Concentrate) 1,000 mg capsule Discontinued 1000 MG PO daily May 30, 2018 12:00am April 20, 2021 8:53am Start: 05-30-2018 End: 04-20-2021 take 1 capsule by mouth once daily [place]-3 Fatty Acids (Fish Oil Concentrate) 1,000 mg capsule Discontinued 1000 MG PO daily May 29, 2018 11:00pm April 20, 2021 7:53am tamsulosin hydrochloride 0.4 mg oral capsule (8 sources) alpha-Adrenergic Christie Start: 12-13-2022 End: 05-23-2023 take 1 capsule by mouth once daily Tamsulosin 0.4 mg capsule Discontinued 0.4 mg PO DAILY 90 December 13, 2022 1:00am May 23, 2023 3:29pm traMADol hydrochloride 50 mg oral tablet (6 sources) Opioid Agonist Start: 04-20-2021 End: 07-11-2021 take 1 tablet by mouth three times daily as needed Tramadol 50 mg tablet Discontinued 50 mg PO THREE TIMES A DAY as needed April 20, 2021 12:00am July 11, 2021 2:28pm zinc gluconate 100 mg oral tablet (6 sources) Start: 01-04-2022 End: 04-16-2024 Zinc Gluconate 100 mg tablet Discontinued PO January 04, 2022 1:00am April 16, 2024 10:23am Start: 01-04-2022 Zinc Gluconate Active PO January 04, 2022 1:00am Problems Active Problems Problem Classification Problem Date Documented Da te Episodic/Chronic Disorders of lipid metabolism (7 sources) Hyperlipidemia; Translations: [Hyperlipidemia, unspecified] Onset: 09-02-2024 09-03-2019 Chronic Gastrointestinal hemorrhage (4 sources) Hemorrhage of anus and rectum; Translations: [Hemorrhage of rectum and anus] 11-23-2022 Episodic Genitourinary symptoms and ill-defined conditions (4 sources) Urinary tract obstruction; Translations: [Obstructive and reflux uropathy, unspecified] 12-22-2022 Episodic Hyperplasia of prostate (12 sources) Benign prostatic hyperplasia; Translations: [Benign prostatic hyperplasia without lower urinary tract symptoms] Onset: 09-02-2024 12-22-2022 Chronic Osteoarthritis (3 sources) Osteoarthritis of knee; Translations: [Unilateral primary osteoarthritis, left knee] Onset: 09-02-2024 Chronic Other aftercare (1 source) Follow-up orthopedic assessment; Translations: [Aftercare following joint replacement surgery] Chronic Other circulatory disease (2 sources) Prehypertension; Translations: [Elevated blood-pressure reading, without diagnosis of hypertension] 05-23-2023 Episodic Other connective tissue disease (1 source) Artificial knee joint present; Translations: [Presence of left artificial knee joint] Chronic Other gastrointestinal disorders (6 sources) Diarrhea, unspecified; Translations: [Diarrhea] 11-23-2022 Episodic Other gastrointestinal disorders (4 sources) Diarrhea; Translations: [Diarrhea, unspecified] 12-13-2022 Episodic Other male genital disorders (4 sources) H/O: male genital disorder; Translations: [Personal history of other diseases of male genital organs] 12-22-2022 Episodic Other nervous system disorders (1 source) Incoordination; Translations: [Other lack of coordination] Episodic Other non-traumatic joint disorders (1 source) Pain in left knee; Translations: [Pain of left knee joint] Episodic Other screening for suspected conditions (not mental disorders or infectious disease) (6 sources) Patient encounter status; Translations: [Encounter for screening for malignant neoplasm of colon] 06-21-2018 Episodic Other skin disorders (2 sources) Multiple skin tags; Translations: [Other hypertrophic disorders of the skin] 05-23-2023 Episodic Other skin disorders (1 source) Other hypertrophic disorders of the skin; Translations: [Unspecified hypertrophic and atrophic conditions of skin] 05-23-2023 Episodic Residual codes; unclassified (6 sources) Sleep apnea; Translations: [Sleep apnea, unspecified] 09-18-2018 Chronic Residual codes; unclassified (6 sources) History of colonoscopy; Translations: [Other specified postprocedural states] 11-27-2022 Episodic Comment on above: x 2 Polyps removed . Due June 2023 Residual codes; unclassified (1 source) Past history of procedure; Translations: [Other specified postprocedural states] Episodic Residual codes; unclassified (1 source) Bilateral lower limb edema; Translations: [Localized edema] 04-16-2024 Episodic Spondylosis; intervertebral disc disorders; other back problems (12 sources) Spinal stenosis of lumbar region; Translations: [Spinal stenosis, lumbar region without neurogenic claudication] 01-12-2022 Episodic Sprains and strains (2 sources) Sprain of knee; Translations: [Sprain of unspecified site of unspecified knee, initial encounter] Onset: 02-15-2024 Episodic Transient cerebral ischemia (1 source) Amaurosis fugax; 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] Onset: 04-24-2025 Chronic Urinary tract infections (4 sources) Urinary tract infectious disease; Translations: [Urinary tract infection, site not specified] 12-22-2022 Episodic Past or Other Problems Problem Classification Problem Date Documented Da te Episodic/Chronic Other circulatory disease (2 sources) Elevated blood-pressure reading, without diagnosis of hypertension; Translations: [Elevated blood pressure reading without diagnosis of hypertension] Onset: 09-02-2024 05-23-2023 Episodic Results Test Name Value Interpretation Reference Range Facility Absolute lymphocyte countOrd ered By: Ulysses Crystal on 04-20-2025 Lymphocytes Auto (Unsp spec) [#/Vol] 1.73 10*3/uL 0.83-4.[address] [facility] Absolute neutrophil countOrd ered By: Ulysses Crystal on 04-20-2025 Neutrophils (Bld) [#/Vol] 2.2 10*3/uL 2.0-7.[address] [facility] Automated lymphocyte count a s percentage of total leukocytesOrdered By: Ulysses Crystal on 04-20-2025 Lymphocytes/100 WBC Auto (Unsp spec) 37.4 % 19-[address] [facility] Basophil percentageOrdered B y: Ulysses Crystal on 04-20-2025 Basophils/100 WBC (Bld) 1.1 % High 0-1 [facility] CBC W/Diff, Automatedon Absolute Lymph 1.73 X10 3/uL Normal 0.83-4.[address] [facility] Comment on above: Performed By: #### L [id number], L100.0100, [id number] #### [facility] [address] [place], [address] Absolute Neut 2.2 X10 3/uL Normal 2.0-7.[address] [facility] Comment on above: Performed By: #### L [id number], L100.0100, [id number] #### [facility] [address] [place], [address] Basophils/100 WBC (Bld) 1.1 % High 0-1 [facility] Comment on above: Performed By: #### L [id number], L100.0100, [id number] #### [facility] [address] [place], [address] Eosinophils/100 WBC (Bld) 1.7 % Normal 0-[address] [facility] Comment on above: Performed By: #### L [id number], L100.0100, [id number] #### [facility] [address] [place], [address] Erythrocyte distribution width (RBC) [Ratio] 13.6 % Normal 11.6-14.[address] [facility] Comment on above: Performed By: #### L [id number], L100.0100, [id number] #### [facility] [address] [place], [address] Hematocrit (Bld) [Volume fraction] 48.1 % Normal 40-[address] [facility] Comment on above: Performed By: #### L [id number], L100.0100, [id number] #### [facility] [address] [place], [address] Hemoglobin (Bld) [Mass/Vol] 16.1 g/dL Normal 13.0-16.[address] [facility] Comment on above: Performed By: #### L [id number], L100.0100, [id number] #### [facility] [address] [place], [address] IG% 1.300 High 0.0-0.[address] [facility] Comment on above: Result Comment: IG% - Immature Granulocytes (promyelocytes, myelocytes and metamyelocytes) > 1% indicates that a LEFT SHIFT is Present. Performed By: #### L [id number], L100.0100, [id number] #### [facility] [address] [place], [address] Lymphocytes/100 WBC (Bld) 37.4 % Normal 19-[address] [facility] Comment on above: Performed By: #### L [id number], L100.0100, [id number] #### [facility] [address] [place], [address] MCH (RBC) [Entitic mass] 31.1 pg Normal 27.0-32.[address] [facility] Comment on above: Performed By: #### L [id number], L100.0100, [id number] #### [facility] [address] [place], [address] MCHC (RBC) [Mass/Vol] 33.5 g/dL Normal 32-36 [facility] Comment on above: Performed By: #### L [id number], L100.0100, [id number] #### [facility] [address] [place], [address] MCV (RBC) [Entitic vol] 92.9 fL Normal 80-94 [facility] Comment on above: Performed By: #### L [id number], L100.0100, [id number] #### [facility] [address] [place], [address] Monocytes/100 WBC (Bld) 11.2 % High 0-10 [facility] Comment on above: Performed By: #### L [id number], L100.0100, [id number] #### [facility] [address] [place], [address] Neutrophils/100 WBC (Bld) 47.3 % Normal 47-[address] [facility] Comment on above: Performed By: #### L [id number], L100.0100, [id number] #### [facility] [address] [place], [address] Nucleated RBC (Bld) [#/Vol] 0 10*3/uL Normal 0-[address] [facility] Comment on above: Performed By: #### L [id number], L100.0100, [id number] #### [facility] [address] [place], [address] Platelet mean volume (Bld) [Entitic vol] 11.0 fL Normal 6.2-12.[address] [facility] Comment on above: Performed By: #### L [id number], L100.0100, [id number] #### [facility] [address] [place], [address] Platelets (Bld) [#/Vol] 199 10*3/uL Normal 150-[address] [facility] Comment on above: Performed By: #### L [id number], L100.0100, [id number] #### [facility] [address] [place], [address] RBC (Bld) [#/Vol] 5.18 10*6/uL Normal 4.6-6.2 [facility] Comment on above: Performed By: #### L [id number], L100.0100, [id number] #### [facility] [address] [place], [address] RDW SD 46.6 fl High 35.1-43.[address] [facility] Comment on above: Performed By: #### L [id number], L100.0100, [id number] #### [facility] [address] [place], [address] WBC (Bld) [#/Vol] 4.6 10*3/uL Normal 4.4-11.0 [facility] Comment on above: Performed By: #### L [id number], L100.0100, [id number] #### [facility] [address] [place], [address] CRPon 04-20-2025 C-REACTIVE PROT < 3.00 Normal 0.0-3.[address] [facility] Comment on above: Performed By: #### L [id number], L100.0100, [id number] #### [facility] [address] [place], [place], [address] Eosinophil percentageOrdered By: Ulysses Crystal on 04-20-2025 Eosinophils/100 WBC (Bld) 1.7 % 0-[address] [facility] Erythrocyte Sed Rateon 04-20 SED RATE 3 mm/hr Normal 0-[address] [facility] Comment on above: Performed By: #### L [id number], L100.0100, [id number] #### [facility] [address] [place], [place], [address] Erythrocyte distribution wid th ratioOrdered By: Ulysses Crystal on 04-20-2025 Erythrocyte distribution width (RBC) [Ratio] 13.6 % 11.6-14.[address] [facility] Erythrocyte distribution wid th standard deviationOrdered By: Ulysses Crystal on 04-20-2025 Erythrocyte distribution width (RBC) [Ratio] 46.6 fl High 35.1-43.[address] [facility] Erythrocyte sedimentation ra teOrdered By: Ulysses Crystal on 04-20-2025 ESR (Bld) [Velocity] 3 mm/h 0-20 [facility] Hematocrit Auto (Bld) [Volum e fraction]Ordered By: Ulysses Crystal on 04-20-2025 Hematocrit (Bld) [Volume fraction] 48.1 % 40-[address] [facility] Hemoglobin measurementOrdere d By: Ulysses Crystal on 04-20-2025 Hemoglobin (Bld) [Mass/Vol] 16.1 g/dL 13.0-16.[address] [facility] Immature granulocytes/100 WB C Auto (Bld)Ordered By: Ulysses Crystal on 04-20-2025 Immature granulocytes/100 WBC (Bld) 1.300 % High 0.0-0.[address] [facility] Comment on above: IG% - Immature Granu locytes (promyelocytes, myelocytes and metamyelocytes) > 1% indicates that a LEFT SHIFT is Present. MCV (mean corpuscular volume ) determinationOrdered By: Ulysses Crystal on 04-20-2025 MCV (RBC) [Entitic vol] 92.9 fL 80-94 [facility] Mean corpuscular hemoglobin (MCH) determinationOrdered By: Ulysses Crystal on 04-20-2025 MCH (RBC) [Entitic mass] 31.1 pg 27.0-32.[address] [facility] Mean corpuscular hemoglobin concentration (MCHC) determinationOrdered By: Ulysses Crystal on 04-20-2025 MCHC (RBC) [Mass/Vol] 33.5 g/dL 32-36 [facility] Mean platelet volume determi nationOrdered By: Ulysses Crystal on 04-20-2025 Platelet mean volume (Bld) [Entitic vol] 11.0 fL 6.2-12.[address] [facility] Monocyte percentageOrdered B y: Ulysses Crystal on 04-20-2025 Monocytes/100 WBC (Bld) 11.2 % High 0-10 [facility] Neutrophil percentageOrdered By: Ulysses Crystal on 04-20-2025 Neutrophils/100 WBC (Bld) 47.3 % 47-[address] [facility] Nucleated red blood cell per centageOrdered By: Ulysses Crystal on 04-20-2025 Nucleated RBC/100 WBC (Bld) [Ratio] 0 % 0-[address] [facility] Platelet countOrdered By: Mitul Crystal on 04-20-2025 Platelets (Bld) [#/Vol] 199 10*3/uL 150-[address] [facility] RBC Auto (Bld) [#/Vol]Ordere d By: Ulysses Crystal on 04-20-2025 RBC (Bld) [#/Vol] 5.18 10*6/uL 4.6-6.2 [facility] Serum or plasma C reactive p rotein measurement (mass/volume)Ordered By: Ulysses Crystal on 04-20-2025 CRP [Mass/Vol] mg/L 0.0-3.[address] [facility] White blood cell (WBC) count Ordered By: Ulysses Crystal on 04-20-2025 WBC (Bld) [#/Vol] 4.6 10*3/uL 4.4-11.0 [facility] ABO/Rh (Gel)on 09-30-2024 ABO/Rh Interp Positive Invalid Interpretation Code [facility] Comment on above: Performed By: #### M RSAPCR #### [facility] [address] [place] [id number] ABS (Gel)on 09-30-2024 ABSC Interp (Gel) Negative Normal [facility] Comment on above: Performed By: #### M RSAPCR #### [facility] [address] [place] [id number] LABORATORYOrdered By: Viola Santiago on 09-30-2024 ABO and Rh group Nom (Bld) Blood group O Rh(D) positive Invalid Interpretation Code AO BB Auto SS Blood group antibody screen Ql Negative ABSC (09/30/24 5:59 AM) Normal AO BB Auto SS US ANESTHESIA BLOCKon 2023 US ANESTHESIA BLOCK ORIGINAL Images acquired, not reported on this accession number. Normal [facility] XR KNEE 1 OR 2 VIEWS LEFTon 09-30-2024 XR KNEE 1 OR 2 VIEWS LEFT ORIGINAL EXAMINATION: TWO XRAY VIEWS OF THE LEFT KNEE09/30/2024 9:26 am XR portable left knee AP and cross-table lateral two views COMPARISON: CT 09/01/2024 HISTORY: ORDERING SYSTEM PROVIDED HISTORY: Reason for Exam: Status Post Arthroplasty, Status Post Arthroplasty , check prosthesis alignment FINDINGS: The left knee joint has been replaced with a prosthesis that show satisfactory alignment. There are expected postoperative changes in the soft tissues. IMPRESSION: Expected postoperative appearance following left knee replacement surgery. Interpreted by: Luigi Bah MD Preliminary Report By: Luigi Bah MD Electronically signed By Luigi Bah MD Dictated Date: 09/30/2024 9:44:58 AM Prelim Date: 09/30/2024 9:45:23 AM Sign Date: 09/30/2024 9:45:23 AM Ordering Provider: DAWIT BELTRÁN [facility] Internal Medicine Office Vis carlos 09-02-2024 Internal Medicine Office Visit [facility] [address] [place] [address] [address] [place], [place] [id number] OFFICE VISIT Date of Service: 09/02/24 MR#: [id number] Acct: [id number] Name: VINCENZO BENEDICT Rep #: [id number] : 1955 Provider: Dr. 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 Accompanied by: Self Is patient in pain?: No Allergies No Known Allergies Allergy (Verified 09/02/24 14:41) Medications ???Medication ???Instructions ???Recorded ???Confirmed ???Type glucosamine HCl 750 mg tablet 750 mg PO QDAY 05/30/18 09/02/24 History multivitamin (Daily Multi-Vitamin 1 tab PO DAILY 04/20/21 09/02/24 History tablet) cholecalciferol (vitamin D3) 50 50 mcg PO QDAY 09/02/24 09/02/24 History mcg (2,000 unit) capsule Have you fallen in the past year?: No PFSH Medical History Wears glasses History of steroid therapy Arthritis Kidney stone Back pain Leg cramps Non-smoker CPAP (continuous positive airway pressure) dependence History of pain when walking History of edema History of rheumatic fever Rheumatoid arthritis Sleep apnea Hyperlipemia Surgical History History of back surgery History of hemorrhoidectomy Hx of colonoscopy Family History Father Heart disease CVA (cerebral vascular accident) Alcoholism Mother Heart disease Social History Smoking Status: Never smoker alcohol intake: former year quit: 1983 substance use type: former substance user Date of last use: 1983 caffeine: Yes what type of physical activity do you participate in: other details: yard work seatbelt use: always HPI HPI Chief Complaint: surgical clearance Details: VINCENZO BENEDICT, is a 69 M who presents to the office today for a pre-op exam. He is set for a TKR left. ROS Const Constitutional: No body ache, chills, excessive sweating, fatigue, fever(s), frequent falls, headache(s), snoring, weakness or change in appetite Eyes Eyes: No blurry vision, change in vision, eye pain or Light sensitivity ENT ENT: No abnormal hearing, ear or mastoid pain, tinnitus, nasal congestion, headache(s), neck pain or sore throat Resp Respiratory: No cough, shortness of breath, snoring or wheezing Cardio Cardiology: No chest pain at rest, chest pain with exertion, excessive sweating, dyspnea on exertion, lightheadedness, orthopnea or palpitations Gastro GI: No abdominal pain, change in bowel habits, constipation, cramping, diarrhea, nausea/dyspepsia or vomiting Genitourinary Male: No burning urination, painful urination, urinary incontinence or urinary frequency Musc Musculoskeletal: No abnormal gait, joint pain, back pain, limited range of motion, muscle weakness, neck pain or numbness Skin Skin: No dry skin, redness, lesions, itchy eyes, rash or wounds Neuro Neurology: No abnormal gait, abnormal hearing, weakness, frequent falls, headache(s), memory loss or numbness Psych Psychiatric: No anxiety, No change in appetite, No depression, No memory loss and No Thoughts of harming yourself/Others Endo Endocrine: No cold intolerance, excessive sweating, fatigue, flushing, heat intolerance, increased thirst/drinking or increased hunger Aller/Imm Allergy/Immunologic : No itchy eyes, seasonal allergy symptoms, hives or wheezing Karri/Lymp Hematologic/Lymphat ic: No easy bleeding or easy bruising Exam Const General: cooperative, healthy appearing, comfortable, no acute distress, well developed and well groomed Nutritional Appearance: overweight Orientation: alert, awake and oriented x3 HENMT Head: normal to inspection Ears: hearing grossly normal bilaterally and TM's normal bilaterally Mouth: oral mucosae normal Teeth and gingiva: dentition normal Eyes General: appearance normal, both eyes and all related structures Neck Neck: normal visual inspection Neck mass: No Resp Effort Inspection: normal respiratory effort, able to speak in complete sentences, symmetric chest movement, normal respiratory pattern and no cough Auscultation: Bilateral: Clear to Auscultation Cardio Rate: reg (more content not included)... Normal [facility] .Auto Diffon 09-01-2024 Basophil, Absolute 0.0 10 3/mcL Normal 0.0-0.2 [facility] Comment on above: Performed By: #### A BOGEL, CBC, ANEU, ABSGEL, ADIFF, BMP, GFR, ALB #### [address] [address] Basophils/100 WBC (Bld) 1.1 % Normal 0.0-2.5 [facility] Comment on above: Performed By: #### A BOGEL, CBC, ANEU, ABSGEL, ADIFF, BMP, GFR, ALB #### [address] [address] Eosinophil, Absolute 0.1 10 3/mcL Normal 0.0-0.7 [facility] Comment on above: Performed By: #### A BOGEL, CBC, ANEU, ABSGEL, ADIFF, BMP, GFR, ALB #### [address] [address] Eosinophils/100 WBC (Bld) 1.9 % Normal 0.0-7.0 [facility] Comment on above: Performed By: #### A BOGEL, CBC, ANEU, ABSGEL, ADIFF, BMP, GFR, ALB #### [address] [address] Lymphocyte, Absolute 1.3 10 3/mcL Normal 0.9-4.3 [facility] Comment on above: Performed By: #### A BOGEL, CBC, ANEU, ABSGEL, ADIFF, BMP, GFR, ALB #### [address] [address] Lymphocytes/100 WBC (Bld) 34.2 % Normal 20.0-40.0 [facility] Comment on above: Performed By: #### A BOGEL, CBC, ANEU, ABSGEL, ADIFF, BMP, GFR, ALB #### [address] [address] Monocyte, Absolute 0.4 10 3/mcL Normal 0.1-1.4 [facility] Comment on above: Performed By: #### A BOGEL, CBC, ANEU, ABSGEL, ADIFF, BMP, GFR, ALB #### [address] [address] Monocytes/100 WBC (Bld) 11.7 % Normal 2.0-13.0 [facility] Comment on above: Performed By: #### A BOGEL, CBC, ANEU, ABSGEL, ADIFF, BMP, GFR, ALB #### [address] [address] Neutrophils/100 WBC (Bld) 51.1 % Normal 50.0-75.0 [facility] Comment on above: Performed By: #### A BOGEL, CBC, ANEU, ABSGEL, ADIFF, BMP, GFR, ALB #### [address] [address] .GFRon 09-01-2024 GFR 93 ml/min/1.73sqm Normal [facility] Comment on above: Result Comment: GFR Population mean for , Non- Americans Ages 20-29 = 116 mL/min/1.73 sq.m. Ages 30-39 = 107 mL/min/1.73 sq.m. Ages 40-49 = 99 mL/min/1.73 sq.m. Ages 50-59 = 93 mL/min/1.73 sq.m. Ages 60-69 = 85 mL/min/1.73 sq.m. Ages 70+ = 75 mL/min/1.73 sq.m. Chronic Kidney Disease: Less than 60 mL/min/1.73 square meters End Stage Renal Disease: Less than 15 mL/min/1.73 square meters Performed By: #### A BOGEL, CBC, ANEU, ABSGEL, ADIFF, BMP, GFR, ALB #### [address] [address] GFR Non- 77 ml/min/1.73sqm Normal [facility] Comment on above: Result Comment: GFR Population mean for , Non- Americans Ages 20-29 = 116 mL/min/1.73 sq.m. Ages 30-39 = 107 mL/min/1.73 sq.m. Ages 40-49 = 99 mL/min/1.73 sq.m. Ages 50-59 = 93 mL/min/1.73 sq.m. Ages 60-69 = 85 mL/min/1.73 sq.m. Ages 70+ = 75 mL/min/1.73 sq.m. Chronic Kidney Disease: Less than 60 mL/min/1.73 square meters End Stage Renal Disease: Less than 15 mL/min/1.73 square meters Performed By: #### A BOGEL, CBC, ANEU, ABSGEL, ADIFF, BMP, GFR, ALB #### [address] [address] .NEUABSon 09-01-2024 Neutrophil, Absolute 1.9 10 3/mcL Low 2.3-8.1 [facility] Comment on above: Performed By: #### A BOGEL, CBC, ANEU, ABSGEL, ADIFF, BMP, GFR, ALB #### [address] [address] ABO/Rh (Gel)on 09-01-2024 ABO/Rh Interp Positive Invalid Interpretation Code [facility] Comment on above: Performed By: #### A BOGEL, CBC, ANEU, ABSGEL, ADIFF, BMP, GFR, ALB #### [address] [address] ABS (Gel)on 09-01-2024 ABSC Interp (Gel) Negative Normal [facility] Comment on above: Performed By: #### A BOGEL, CBC, ANEU, ABSGEL, ADIFF, BMP, GFR, ALB #### [address] [address] ALBon 09-01-2024 Albumin Level 3.5 G/dL Normal 3.4-4.8 [facility] Comment on above: Performed By: #### A BOGEL, CBC, ANEU, ABSGEL, ADIFF, BMP, GFR, ALB #### [address] [address] BMPon 09-01-2024 BUN/Creatinine Ratio 16 ratio Normal 7-27 [facility] Comment on above: Performed By: #### A BOGEL, CBC, ANEU, ABSGEL, ADIFF, BMP, GFR, ALB #### [address] [address] Calcium [Mass/Vol] 8.9 mg/dL Normal 8.4-10.2 [facility] Comment on above: Performed By: #### A BOGEL, CBC, ANEU, ABSGEL, ADIFF, BMP, GFR, ALB #### [address] [address] Chloride [Moles/Vol] 105 mmol/L Normal 98-107 [facility] Comment on above: Performed By: #### A BOGEL, CBC, ANEU, ABSGEL, ADIFF, BMP, GFR, ALB #### [address] [address] CO2 [Moles/Vol] 27 mmol/L Normal 23-31 [facility] Comment on above: Performed By: #### A BOGEL, CBC, ANEU, ABSGEL, ADIFF, BMP, GFR, ALB #### [address] [address] Creatinine [Mass/Vol] 0.97 mg/dL Normal 0.70-1.30 [facility] Comment on above: Result Comment: Test ing performed on Siemens Dimension EXL analyzer using a modified kinetic Joshua technique. Performed By: #### A BOGEL, CBC, ANEU, ABSGEL, ADIFF, BMP, GFR, ALB #### [address] [address] Electrolyte Balance 7.0 mEq/L Normal 4.0-15.0 [facility] Comment on above: Performed By: #### A BOGEL, CBC, ANEU, ABSGEL, ADIFF, BMP, GFR, ALB #### [address] [address] Glucose [Mass/Vol] 83 mg/dL Normal 83-110 [facility] Comment on above: Performed By: #### A BOGEL, CBC, ANEU, ABSGEL, ADIFF, BMP, GFR, ALB #### [address] [address] Potassium [Moles/Vol] 4.4 mmol/L Normal 3.5-5.1 [facility] Comment on above: Performed By: #### A BOGEL, CBC, ANEU, ABSGEL, ADIFF, BMP, GFR, ALB #### [address] [address] Sodium [Moles/Vol] 139 mmol/L Normal 136-145 [facility] Comment on above: Performed By: #### A BOGEL, CBC, ANEU, ABSGEL, ADIFF, BMP, GFR, ALB #### [address] [address] Urea nitrogen [Mass/Vol] 16 mg/dL Normal 7-18 [facility] Comment on above: Performed By: #### A BOGEL, CBC, ANEU, ABSGEL, ADIFF, BMP, GFR, ALB #### [address] [address] CBCon 09-01-2024 Erythrocyte distribution width (RBC) [Ratio] 13.7 % Normal 11.5-15.5 [facility] Comment on above: Order Comment: Pre-A dmission Testing Performed By: #### A BOGEL, CBC, ANEU, ABSGEL, ADIFF, BMP, GFR, ALB #### [address] [address] Hematocrit (Bld) [Volume fraction] 46.0 % Normal 40.0-52.0 [facility] Comment on above: Order Comment: Pre-A dmission Testing Performed By: #### A BOGEL, CBC, ANEU, ABSGEL, ADIFF, BMP, GFR, ALB #### [address] [address] Hgb 15.4 G/dL Normal 13.0-17.5 [facility] Comment on above: Order Comment: Pre-A dmission Testing Performed By: #### A BOGEL, CBC, ANEU, ABSGEL, ADIFF, BMP, GFR, ALB #### [address] [address] MCH (RBC) [Entitic mass] 31.1 pg Normal 27.0-33.0 [facility] Comment on above: Order Comment: Pre-A dmission Testing Performed By: #### A BOGEL, CBC, ANEU, ABSGEL, ADIFF, BMP, GFR, ALB #### [address] [address] MCHC 33.4 G/dL Normal 32.0-36.0 [facility] Comment on above: Order Comment: Pre-A dmission Testing Performed By: #### A BOGEL, CBC, ANEU, ABSGEL, ADIFF, BMP, GFR, ALB #### [address] [address] MCV (RBC) [Entitic vol] 93.3 fL Normal 81.0-100.0 [facility] Comment on above: Order Comment: Pre-A dmission Testing Performed By: #### A BOGEL, CBC, ANEU, ABSGEL, ADIFF, BMP, GFR, ALB #### [address] [address] Platelet 223 10 3/mcL Normal 150-450 [facility] Comment on above: Order Comment: Pre-A dmission Testing Performed By: #### A BOGEL, CBC, ANEU, ABSGEL, ADIFF, BMP, GFR, ALB #### [address] [address] Platelet mean volume (Bld) [Entitic vol] 9.0 fL Normal 6.4-10.5 [facility] Comment on above: Order Comment: Pre-A dmission Testing Performed By: #### A BOGEL, CBC, ANEU, ABSGEL, ADIFF, BMP, GFR, ALB #### [address] [address] RBC 4.94 10 6/mcL Normal 4.50-6.00 [facility] Comment on above: Order Comment: Pre-A dmission Testing Performed By: #### A BOGEL, CBC, ANEU, ABSGEL, ADIFF, BMP, GFR, ALB #### [facility] [address] [place], [place] [address] WBC 3.8 10 3/mcL Low 4.5-10.8 [facility] Comment on above: Order Comment: Pre-A dmission Testing Performed By: #### A BOGEL, CBC, ANEU, ABSGEL, ADIFF, BMP, GFR, ALB #### [facility] [address] [place], [place] [address] CT KNEE W/O CONTRAST LEFTon 09-01-2024 CT KNEE W/O CONTRAST LEFT ORIGINAL EXAMINATION: CT OF THE LEFT KNEE WITHOUT CONTRAST 09/01/2024 9:12 am TECHNIQUE: CT of the left knee was performed without the administration of intravenous contrast. Multiplanar reformatted images are provided for review. Automated exposure control, iterative reconstruction, and/or weight based adjustment of the mA/kV was utilized to reduce the radiation dose to as low as reasonably achievable. COMPARISON: Left knee radiographs 02/15/2024. HISTORY ORDERING SYSTEM PROVIDED HISTORY: Reason for Exam: Unilateral primary osteoarthritis, left knee FINDINGS: Bones: No evidence of acute fracture or dislocation. No aggressive appearing osseous abnormality or periostitis. Soft Tissue: Small knee joint effusion. No significant fluid collections. Vascular calcifications noted. Joint: There is mild left hip degenerative changes consisting of joint space narrowing, marginal osteophytes, and superolateral acetabular subchondral cystic change. Degenerative changes are noted at the SI joint and pubic symphysis. Moderate lateral femorotibial and mild medial femorotibial joint space narrowing. There is mild to moderate lateral patellofemoral compartment narrowing. Tricompartmental osteophytes. Femorotibial subchondral cystic changes as well as subchondral sclerosis at the lateral femorotibial compartment. Multiple loose bodies are seen within the knee joint measuring up to 1.2 cm. Mild tibiotalar degenerative changes consisting of mild joint space narrowing, marginal osteophyte formation and subchondral cystic change. Achilles and plantar calcaneal insertional enthesopathy. Well corticated ossific densities seen proximal to the navicular bone may represent ossicles versus sequela remote trauma. IMPRESSION: Tricompartmental degenerative in the knee, as above. Multiple loose bodies are identified. Other degenerative changes as detailed in the body of the report. Small knee joint effusion. I have personally reviewed the images of this examination and agree with the resident's findings and interpretation. Interpreted by: Abhi Wilson MD Preliminary Report By: Ricky Hui Electronically signed By Abhi Wilson MD Dictated Date: 09/01/2024 9:58:06 AM Prelim Date: 09/01/2024 1:53:42 PM Sign Date: 09/01/2024 1:53:42 PM Ordering Provider: DAWIT Weir [facility] LABORATORYOrdered By: Rose Marie Yip on 09-01-2024 ABO and Rh group Nom (Bld) Blood group O Rh(D) positive Invalid Interpretation Code AO BB Auto SS Blood group antibody screen Ql Negative ABSC (09/01/24 8:46 AM) Normal AO BB Auto SS LABORATORYOrdered By: SYSTEM SYSTEM on 09-01-2024 Albumin BCP dye [Mass/Vol] 3.5 G/dL Normal 3.4 - 4.8 G/dL AO ADM SS Basophils (Bld) [#/Vol] 0.0 103/mcL Normal 0.0 - 0.2 10^3/mcL AO Workflow SS Basophils/100 WBC (Bld) 1.1 % Normal 0.0 - 2.5 % AO Workflow SS Calcium [Mass/Vol] 8.9 mg/dL Normal 8.4 - 10. 2 mg/dL AO ADM SS Chloride [Moles/Vol] 105 mmol/L Normal 98 - 10 7 mmol/L AO ADM SS CO2 [Moles/Vol] 27 mmol/L Normal 23 - 31 mmol/L AO ADM SS Creatinine [Mass/Vol] 0.97 mg/dL Normal 0.70 - 1.30 mg/dL AO ADM SS Comment on above: Interpretive Data: T esting performed on Siemens Dimension EXL analyzer using a modified kinetic Joshua technique. Electrolyte Balance 7.0 mEq/L Normal 4.0 - 15 .0 mEq/L AO ADM SS Eosinophil, Absolute 0.1 103/mcL Normal 0.0 - 0 .7 10^3/mcL AO Workflow SS Eosinophils/100 WBC (Bld) 1.9 % Normal 0.0 - 7.0 % AO Workflow SS Erythrocyte distribution width (RBC) [Ratio] 13.7 % Normal 11.5 - 15.5 % AO Workflow SS GFR/1.73 sq M.predicted among blacks MDRD (S/P/Bld) [Vol rate/Area] 93 ml/min/1.73sqm Invalid Interpretation Code AO Chemistry S Comment on above: Interpretive Data: GFR Population mean for , Non- Americans Ages 20-29 = 116 mL/min/1.73 sq.m. Ages 30-39 = 107 mL/min/1.73 sq.m. Ages 40-49 = 99 mL/min/1.73 sq.m. Ages 50-59 = 93 mL/min/1.73 sq.m. Ages 60-69 = 85 mL/min/1.73 sq.m. Ages 70+ = 75 mL/min/1.73 sq.m. Chronic Kidney Disease: Less than 60 mL/min/1.73 square meters End Stage Renal Disease: Less than 15 mL/min/1.73 square meters GFR/1.73 sq M.predicted among non-blacks MDRD (S/P/Bld) [Vol rate/Area] 77 ml/min/1.73sqm Invalid Interpretation Code AO Chemistry S Comment on above: Interpretive Data: GFR Population mean for , Non- Americans Ages 20-29 = 116 mL/min/1.73 sq.m. Ages 30-39 = 107 mL/min/1.73 sq.m. Ages 40-49 = 99 mL/min/1.73 sq.m. Ages 50-59 = 93 mL/min/1.73 sq.m. Ages 60-69 = 85 mL/min/1.73 sq.m. Ages 70+ = 75 mL/min/1.73 sq.m. Chronic Kidney Disease: Less than 60 mL/min/1.73 square meters End Stage Renal Disease: Less than 15 mL/min/1.73 square meters Glucose [Mass/Vol] 83 mg/dL Normal 83 - 110 mg/dL AO ADM SS Hematocrit (Bld) [Volume fraction] 46.0 % Normal 40.0 - 52.0 % AO Workflow SS Hemoglobin (Bld) [Mass/Vol] 15.4 G/dL Normal 13.0 - 17.5 G/dL AO Workflow SS Lymphocytes (Bld) [#/Vol] 1.3 103/mcL Normal 0.9 - 4.3 10^3/mcL AO Workflow SS Lymphocytes/100 WBC (Bld) 34.2 % Normal 20.0 - 40.0 % AO Workflow SS MCH (RBC) [Entitic mass] 31.1 pg Normal 27. 0 - 33.0 pg AO Workflow SS MCHC 33.4 G/dL Normal 32.0 - 36.0 G/dL AO Workflow SS MCV (RBC) [Entitic vol] 93.3 fL Normal 81.0 - 100.0 fL AO Workflow SS Monocytes (Bld) [#/Vol] 0.4 103/mcL Normal 0.1 - 1.4 10^3/mcL AO Workflow SS Monocytes/100 WBC (Bld) 11.7 % Normal 2.0 - 13.0 % AO Workflow SS Neutrophils (Bld) [#/Vol] 1.9 103/mcL Low 2.3 - 8.1 10^3/mcL AO Workflow SS Neutrophils/100 WBC (Bld) 51.1 % Normal 50.0 - 75.0 % AO Workflow SS Platelet mean volume (Bld) [Entitic vol] 9.0 fL Normal 6.4 - 10.5 fL AO Workflow SS Platelets (Bld) [#/Vol] 223 103/mcL Normal 150 - 450 10^3/mcL AO Workflow SS Potassium [Moles/Vol] 4.4 mmol/L Normal 3.5 - 5.1 mmol/L AO ADM SS RBC (Bld) [#/Vol] 4.94 106/mcL Normal 4.50 - 6.0 0 10^6/mcL AO Workflow SS Sodium [Moles/Vol] 139 mmol/L Normal 136 - 145 mmol/L AO ADM SS Urea nitrogen [Mass/Vol] 16 mg/dL Normal 7 - 18 mg/d L AO ADM SS Urea nitrogen/Creatinine [Mass ratio] 16 ratio Normal 7 - 27 ratio AO ADM SS WBC (Bld) [#/Vol] 3.8 103/mcL Low 4.5 - 10.8 10^3/mcL AO Workflow SS LABORATORYOrdered By: Bill Tobar on 09-01-2024 MRSA (PCR) Not Detected 1 (09/01/24 8:46 AM) Normal Not Detected AH Auto Viro/Sero SS Comment on above: Result Comment: Note s [id number] MRSA PCR Int MRSA DNA not detected by Real-Time Polymerase Chain Reaction (PCR). A negative result may be due to intermittent colonization. Colonization may vary depending on patient treatment, patient status, or exposure to high-risk environments.As with all PCR based in vitro diagnostic tests, extremely low levels of target below the limit of detection of the assay may be detected, but results may not be reproducible. Invalid Interpretation Code AH Auto Viro/Sero SS MRSAPCRon 09-01-2024 MRSA (PCR) Not detected Normal Not Detected [facility] Comment on above: Result Comment: [place] s [id number] Performed By: #### M RSAPCR #### [facility] [address] [place] [address] MRSA PCR Int Normal [facility] Comment on above: Result Comment: MRSA DNA not detected by Real-Time Polymerase Chain Reaction (PCR). A negative result may be due to intermittent colonization. Colonization may vary depending on patient treatment, patient status, or exposure to high-risk environments. As with all PCR based in vitro diagnostic tests, extremely low levels of target below the limit of detection of the assay may be detected, but results may not be reproducible. See Below Performed By: #### M RSAPCR #### [facility] [address] [place] [address] Urgent Care Visit Reporton 0 08-11-2024 Urgent Care Visit Report [facility] [address], [address] [place] [address] OFFICE VISIT Date of Service: 08/11/24 MR#: [id number] Acct: [id number] Name: VINCENZO BENEDICT Rep #: [id number] : 1955 Provider: DONNA Shaw Age/Sex: 69/M Location: [facility] Status: Signed Intake Vital Signs 04/16/24 10:23 08/11/24 13:40 Height 6 ft 3 in 6 ft 4 in Weight: 242 lb 238 lb BMI 30.2 29.0 BP 122/84 H 142/96 H Blood Pressure Location Lt brachial Lt brachial Position Sitting Sitting Respiration 14 16 Pulse 71 101 H Pulse Source Monitor Monitor Temp 97.4 F L 99.1 F Temp Source Temporal Temporal Pulse Oximetry (%) 99 96 Oxygen Delivery Method room air room air Intake Visit Reasons: CHEST CONGESTION/SINUS COMP/ST Chief Complaint: CHEST CONGESTION/ SINUS CONPLAINTS/ SORE THROAT R[employer] Press Operator Required: No Accompanied by: Self Is patient in pain?: No Allergies No Known Allergies Allergy (Verified 08/11/24 13:41) Have you fallen in the past year?: No PFSH Medical History Wears glasses History of steroid therapy Arthritis Kidney stone Back pain Leg cramps Non-smoker CPAP (continuous positive airway pressure) dependence History of pain when walking History of edema History of rheumatic fever Rheumatoid arthritis Sleep apnea Hyperlipemia Surgical History History of back surgery History of hemorrhoidectomy Hx of colonoscopy Family History Father Heart disease CVA (cerebral vascular accident) Alcoholism Mother Heart disease Social History Smoking Status: Never smoker alcohol intake: former year quit: 1983 substance use type: former substance user Date of last use: 1983 caffeine: Yes what type of physical activity do you participate in: other details: yard work seatbelt use: always HPI HPI Chief Complaint: CHEST CONGESTION/ SINUS CONPLAINTS/ SORE THROAT Details: VINCENZO BENEDICT, is a 69 M who presents to the office today for initial evaluation in the [facility] for approximately 3 day history of persistent cough, MCCABE, fatigue, congestion/ runny nose. Patient notes no complaints of chest pain or shortness of breath or dyspnea on exertion. Several close contacts recently dx???d w/ similar URI complaints. Requesting POC screening for COVID-19 and influenza. No [id number] taken to assist. No other associated symptoms and no other alleviating/aggrava ting factors. ROS Const Constitutional: No other (As above) Exam Const General: cooperative, healthy appearing and no acute distress Orientation: alert, awake and oriented x3 HENMT Head: normal to inspection Ears: hearing grossly normal bilaterally, external ears normal, TM's normal bilaterally and EAC's normal Nose: external nose normal, nares normal, septum normal and clear nasal discharge Face and sinus: normal facial exam, sinuses nontender and face symmetric Mouth: oral mucosae normal, lip normal, tongue normal and oropharynx normal Throat: posterior oropharynx normal, tonsils normal, uvula midline and no postnasal drainage Eyes General: appearance normal, both eyes and all related structures Neck Neck: normal visual inspection, full ROM, no lymphadenopathy, no meningeal signs and supple Neck mass: No Thyroid: thyroid normal Lymphatic: no lymphadenopathy noted Chest Chest palpation inspection: normal inspection of the chest Resp Effort Inspection: normal respiratory effort, able to speak in complete sentences and cough Quality of cough: wet (nonproductive in office today) Auscultation: Bilateral: Clear to Auscultation Cardio Palpation: normal PMI Rate: tachycardic Rhythm: regular rhythm Heart Sounds: S1 normal, S2 normal, no gallops, no murmurs and no rubs Pulses: radial pulses present Skin General: no rashes or lesions noted Neuro General: patient alert, patient awake and patient oriented x3 Cognition: normal cognition Speech: speech normal Psych Appearance: grossly normal Mental Status: mental status grossly normal Mood: congruent mood Affect: normal affect Speech and Movement: speech and movement normal Attitude: cooperative Diagnoses Contact with or exposure to other viral diseases Z20.828 URI (upper respiratory infection) J06.9 Assessment and Plan Assessment and Plan (1) Contact with or exposure to other viral diseases: Status: Acute (2) URI (upper respiratory infection): Status: Acute Plan: See POC results. Medrol and Benzonatate as prescribed today. Supportive measures as instructed today. Follow-up with PCP in 5 to 7 days should symptoms not improve, ED sooner should (more content not included)... Normal [facility] XR KNEE 1 OR 2 VIEWS LEFTon 02-15-2024 XR KNEE 1 OR 2 VIEWS LEFT ORIGINAL EXAMINATION: TWO XRAY VIEWS OF THE LEFT KNEE 02/15/2024 7:52 am COMPARISON: None. HISTORY: ORDERING SYSTEM PROVIDED HISTORY: Reason for Exam: pain FINDINGS: The left knee joint spaces appear in anatomic alignment. There is moderate tricompartmental osteoarthritis of the left knee manifested by joint space narrowing and marginal osteophyte formation. No acute fracture, dislocation or radiopaque foreign bodies are identified. Suprapatellar joint effusion is seen on the lateral view. IMPRESSION: No acute osseous abnormality of the left knee. Moderate tricompartmental osteoarthritis of the left knee with a joint effusion. Interpreted by: Abhi Sandy MD Preliminary Report By: Abhi Sandy MD Electronically signed By Abhi Sandy MD Dictated Date: 02/15/2024 7:58:11 AM Prelim Date: 02/15/2024 7:58:50 AM Sign Date: 02/15/2024 7:58:50 AM Ordering Provider: EMMETT MOSS [facility] ([place]) No Panel InformationOrdered By: Clementina Junior on 06-04-2023 Prostate Specific Antigen Screen 1.53 ng/mL 0.00-4.[address] [facility] Comment on above: This test was perfor med using the TPSA assay method for [employer] chemistry system. Values obtained with differentassay methods cannot be used interchangably.When changing PSA assays in the course of monitoring apatient, additional sequential testing should be carriedout to confirm baseline values. Basophil percentageOrdered B y: ED PROVIDER on 12-22-2022 Basophil percentage >100 SEEN /hpf 0-5 [facility] Bilirubin Test strip Ql (U)O rdered By: ED PROVIDER on 12-22-2022 Bilirubin Ql (U) Negative Negative [facility] Ketones Test strip Ql (U)Ord ered By: ED PROVIDER on 12-22-2022 Ketones Ql (U) 15 mg/dl Negative [facility] Mucus LM Ql (Urine sed)Order ed By: ED PROVIDER on 12-22-2022 Mucus Ql (Urine sed) 0 SEEN /hpf [facility] Nitrite Test strip Ql (U)Ord ered By: ED PROVIDER on 12-22-2022 Nitrite Ql (U) Positive Negative [facility] Protein Test strip Ql (U)Ord ered By: ED PROVIDER on 12-22-2022 Protein Ql (U) 100 mg/dl Negative [facility] Squamous epithelial cells de tection in urine sediment by light microscopyOrdered By: ED PROVIDER on 12-22-2022 Epithelial cells.squamous LM Ql (Urine sed) 0 SEEN /hpf 0-[address] [facility] Urine blood detectionOrdered By: ED PROVIDER on 12-22-2022 RBC Ql (U) 150 /ul Negative [facility] RBC Ql (U) 0 SEEN /hpf 0-[address] [facility] Urine clarityOrdered By: ED PROVIDER on 12-22-2022 Clarity (U) Cloudy Clear [facility] Urine color determinationOrd ered By: ED PROVIDER on 12-22-2022 Color (U) Yellow Yellow [facility] Urine glucose detectionOrder ed By: ED PROVIDER on 12-22-2022 Glucose Ql (U) Normal mg/dl Normal [facility] Urine leukocyte esterase det ection by dipstickOrdered By: ED PROVIDER on 12-22-2022 Leukocyte esterase Test strip Ql (U) 500 /ul Negative [facility] Urine pHOrdered By: ED PROVI MARIA LUZ on 12-22-2022 pH (U) 6.0 [pH] 5.0 - 8.[address] [facility] Urine sediment bacteria coun t by microscopy (number/high power field)Ordered By: ED PROVIDER on 12-22-2022 Bacteria LM.HPF (Urine sed) [#/Area] 2 /[HPF] None Seen [facility] Urine specific gravity measu rementOrdered By: ED PROVIDER on 12-22-2022 Specific gravity (U) [Rel density] 1.020 1.002-1.[address] [facility] Urobilinogen Auto test strip Ql (U)Ordered By: ED PROVIDER on 12-22-2022 Urobilinogen Ql (U) Normal mg/dl Normal [facility] No Panel InformationOrdered By: Dr. Vogt on 12-13-2022 Prostate Specific Antigen Total 95.70 ng/mL 0.0-4.[address] [facility] Comment on above: This test was perfor med using the TPSA assay method for the[employer] chemistry system. Values obtained with differentassay methods cannot be used interchangably.When changing PSA assays in the course of monitoring apatient, additional sequential testing should be carriedout to confirm baseline values. Stool gastrointestinal hemog lobin detection by immunologic methodOrdered By: Sweetie Bill on 11-25-2022 Lower GI hemoglobin IA Ql (Stl) [facility] Absolute lymphocyte countOrd ered By: Sweetie Bill on 11-23-2022 Lymphocytes Auto (Unsp spec) [#/Vol] 1.51 10*3/uL 0.83-4.[address] [facility] Basophil percentageOrdered B y: Sweetie Bill on 01-05-2023 Basophils/100 WBC (Bld) 1.2 % 0-1 [facility] Bilirubin [Mass/Vol] 0.70 mg/dL 0.20-1.00 [facility] Comment on above: For patients on eltr ombopag therapy, use of Dimension [place] TBIL is not recommended. Chloride [Moles/Vol] 109 mmol/L 98-107 [facility] Eosinophils/100 WBC (Bld) 1.9 % 0-[address] [facility] Glucose [Mass/Vol] 109 mg/dL 74-106 [facility] Comment on above: Fasting Glucose resu lt from 100 to 125 mg/dL suggests IMPAIRED HOMEOSTASIS per A.D.A. criteria. Neutrophils (Bld) [#/Vol] 2.6 10*3/uL 2.0-7.[address] [facility] Neutrophils/100 WBC (Bld) 54.9 % 47-[address] [facility] Potassium [Moles/Vol] 4.3 mmol/L 3.5-5.1 [facility] Protein [Mass/Vol] 6.7 g/dL 6.4-8.2 [facility] Sodium [Moles/Vol] 141 mmol/L 136-145 [facility] WBC (Bld) [#/Vol] 4.8 10*3/uL 4.4-11.0 [facility] Blood erythrocytes count (nu mber/volume)Ordered By: Sweetie Bill on 11-23-2022 RBC (Bld) [#/Vol] 4.99 10*6/uL 4.6-6.2 [facility] Blood hemoglobin measurement (mass/volume)Ordered By: Sweetie Bill on 11-23-2022 Hemoglobin (Bld) [Mass/Vol] 15.0 g/dL 13.0-16.[address] [facility] Blood lymphocytes/100 leukoc ytesOrdered By: Sweetie Bill on 11-23-2022 Lymphocytes/100 WBC (Bld) 31.4 % 19-[address] [facility] Blood monocytes/100 leukocyt esOrdered By: Sweetie Bill on 11-23-2022 Monocytes/100 WBC (Bld) 10.0 % 0-10 [facility] Blood platelet mean volumeOr dered By: Sweetie Bill on 11-23-2022 Platelet mean volume (Bld) [Entitic vol] 11.3 fL 6.2-12.[address] [facility] Determination of erythrocyte mean corpuscular volume (MCV)Ordered By: Sweetie Bill on 11-23-2022 MCV (RBC) [Entitic vol] 93.8 fL 80-94 [facility] Hematocrit Auto (Bld) [Volum e fraction]Ordered By: Sweetie Bill on 11-23-2022 Hematocrit (Bld) [Volume fraction] 46.8 % 40-[address] [facility] Laboratory - Chemistry and C hemistry - challengeOrdered By: Sweetiesandhya Bill on 11-23-2022 ALP [Catalytic activity/Vol] 93 U/L 45-[address] [facility] ALT [Catalytic activity/Vol] 31 U/L 16-[address] [facility] CO2 [Moles/Vol] 28.0 mmol/L 21.0-32.[address] [facility] Globulin (S) [Mass/Vol] 3.3 g/dL 2.2-4.2 [facility] Urea nitrogen/Creatinine [Mass ratio] 17.1 mg/mg 10-[address] [facility] Laboratory - Hematology and Cell countsOrdered By: Sweetiesandhya Bill on 11-23-2022 Erythrocyte distribution width (RBC) [Entitic vol] 46.6 fL 35.1-43.[address] [facility] Erythrocyte distribution width (RBC) [Ratio] 13.6 % 11.6-14.[address] [facility] Immature granulocytes/100 WBC (Bld) 0.600 % 0.0-0.[address] [facility] Comment on above: IG% - Immature Granu locytes (promyelocytes, myelocytes and metamyelocytes) > 1% indicates that a LEFT SHIFT is Present. MCH (RBC) [Entitic mass] 30.1 pg 27.0-32.[address] [facility] Nucleated RBC/100 WBC (Bld) [Ratio] 0 % 0-[address] [facility] MCHC Auto (RBC) [Mass/Vol]Or dered By: Sweetie Bill on 11-23-2022 MCHC (RBC) [Mass/Vol] 32.1 g/dL 32-36 [facility] No Panel InformationOrdered By: Sweetie Bill on 11-23-2022 Estimated GFR (MDRD) Amer 96 mL/min >[address] [facility] Comment on above: GFR Calc Estimated GFR (MDRD) Non-Af Amer 79 mL/min >[address] [facility] Comment on above: Non- GFR Calc Thyroid Stimulating Hormone (TSH) 0.99 uIU/mL 0.358-3.[address] [facility] Platelets bldOrdered By: Alie Bill on 11-23-2022 Platelets (Bld) [#/Vol] 247 10*3/uL 150-[address] [facility] Serum or plasma albumin carlos urement (mass/volume)Ordered By: Sweetie Bill on 11-23-2022 Albumin [Mass/Vol] 3.4 g/dL 3.2-5.0 [facility] Serum or plasma albumin/glob ulin mass ratioOrdered By: Sweetie Bill on 11-23-2022 Albumin/Globulin [Mass ratio] 1.0 {ratio} 0.9-2.[address] [facility] Serum or plasma calcium carlos urement (mass/volume)Ordered By: Sweetie Bill on 11-23-2022 Calcium [Mass/Vol] 8.9 mg/dL 8.5-10.1 [facility] Serum or plasma creatinine m easurement (mass/volume)Ordered By: Sweetie Bill on 11-23-2022 Creatinine [Mass/Vol] 1.00 mg/dL 0.70-1.30 [facility] Comment on above: The validity of the calculated GFR & GFRAA in patients over 70 years has not been determined. Clinical correlation is essential. Serum or plasma urea nitroge n measurement (mass/volume)Ordered By: Sweetie Bill on 11-23-2022 Urea nitrogen [Mass/Vol] 17 mg/dL 7-[address] [facility] Thin prep Papanicolaou smear with manual screeningOrdered By: Sweetie Bill on 11-23-2022 Thin prep Papanicolaou smear with manual screening 19 U/L 15-[address] [facility] Thin prep Papanicolaou smear with manual screening 4 5-[address] [facility] Vital Signs Date Time Vital Sign Value Performing Clinician Facility 09-30-2024 12:35-0500 Diastolic Blood Pressure Non-Invasive 85 mm[Hg] DR DAWIT BELTRÁN [facility] 09-30-2024 12:35-0500 Heart rate 67 /min DR DAWIT BELTRÁN MD [facility] 09-30-2024 12:35-0500 Respiratory rate 15 /min DR DAWIT BELTRÁN MD [facility] 09-30-2024 12:35-0500 Systolic Blood Pressure Non-Invasive 127 mm[Hg] DR DAWIT BELTRÁN MD [facility] 09-30-2024 10:30-0500 Diastolic Blood Pressure Non-Invasive 83 mm[Hg] DR DAWIT BELTRÁN MD [facility] 09-30-2024 10:30-0500 Heart rate 72 /min DR DAWIT BELTRÁN MD [facility] 09-30-2024 10:30-0500 Respiratory rate 20 /min DR DAWIT BELTRÁN MD [facility] 09-30-2024 10:30-0500 Systolic Blood Pressure Non-Invasive 141 mm[Hg] DR DAWIT BELTRÁN MD [facility] 09-30-2024 09:50-0500 Diastolic Blood Pressure Non-Invasive 82 mm[Hg] DR DAWIT BELTRÁN MD [facility] 09-30-2024 09:50-0500 Heart rate 64 /min DR DAWIT BELTRÁN MD [facility] 09-30-2024 09:50-0500 Respiratory rate 18 /min DR DAWIT BELTRÁN MD [facility] 09-30-2024 09:50-0500 Systolic Blood Pressure Non-Invasive 145 mm[Hg] DR DAWIT BELTRÁN MD [facility] 09-30-2024 09:05-0500 Body temperature 97.88 [degF] DR DAWIT BELTRÁN MD [facility] 09-30-2024 09:00-0500 Respiratory Rate - Anes 15 br/min DR DAWIT BELTRÁN MD [facility] 09-30-2024 08:55-0500 Respiratory Rate - Anes 18 br/min DR DAWIT BELTRÁN MD [facility] 09-30-2024 08:50-0500 Respiratory Rate - Anes 18 br/min DR DAWIT BELTRÁN MD [facility] 09-30-2024 05:52-0500 Body height [address] DAWIT BELTRÁN MD [facility] 09-30-2024 05:52-0500 Body weight 108.[address] DAWIT BELTRÁN MD [facility] 09-30-2024 05:52-0500 Heart rate 52 /min DR DAWIT BELTRÁN MD [facility] 09-01-2024 07:56-0400 Blood Pressure Cuff Size DR DAWIT BELTRÁN MD [facility] 09-01-2024 07:56-[address] DAWIT BELTRÁN MD [facility] 09-01-2024 07:56-[address] DAWIT Velazco [facility] 09-01-2024 07:56-0400 Body height [address] DAWIT BELTRÁN MD [facility] 09-01-2024 07:56-0400 Body weight 108.[address] DAWIT BELTRÁN MD [facility] 09-01-2024 07:56-0400 Body weight 29.07 kg/m2 DR DAWIT BELTRÁN MD [facility] 09-01-2024 07:56-0400 Diastolic Blood Pressure Non-Invasive 84 mm[Hg] DR DAWIT BELTRÁN MD [facility] 09-01-2024 07:56-0400 Heart rate 59 /min DR DAWIT BELTRÁN MD [facility] 09-01-2024 07:56-0400 Systolic Blood Pressure Non-Invasive 159 mm[Hg] DR DAWIT BELTRÁN MD [facility] 02-15-2024 07:32-0400 Body temperature 97.52 [degF] EMMETT MOSS MD [facility] 05-23-2023 15:30-0400 Body height 190.[address] Bashir Vogt Work Phone: [facility] 05-23-2023 15:30-0400 Body mass index (BMI) [Ratio] 29 kg/m2 Dr. Bashir Vogt Work Phone: [facility] 05-23-2023 15:30-0400 Body temperature 95.4 [degF] Dr. Bashir Vogt Work Phone: [facility] 05-23-2023 15:30-0400 Body weight 105.[address] Bashir Vogt Work Phone: [facility] 05-23-2023 15:30-0400 Diastolic blood pressure 84 mm[Hg] Dr. Bashir Vogt Work Phone: [facility] 05-23-2023 15:30-0400 Heart rate 85 /min Dr. Bashir Vogt Work Phone: [facility] 05-23-2023 15:30-0400 Respiratory rate 18 /min Dr. Bashir Vogt Work Phone: [facility] 05-23-2023 15:30-0400 SaO2% (BldA) [Mass fraction] 95 % Dr. Bashir Vogt Work Phone: [facility] 05-23-2023 15:30-0400 Systolic blood pressure 128 mm[Hg] Dr. Bashir Vogt Work Phone: [facility] 01-04-2023 07:50-0500 Body temperature 97.7 [degF] DR CLEMENTINA JUNIOR MD [facility] 01-04-2023 07:50-0500 Diastolic Blood Pressure Non-Invasive [address] CLEMENTINA JUNIOR MD [facility] 01-04-2023 07:50-0500 Heart rate 57 /min DR CLEMENTINA JUNIOR MD [facility] 01-04-2023 07:50-0500 Respiratory rate 18 /min DR CLEMENTINA JUNIOR MD [facility] 01-04-2023 07:50-0500 Systolic Blood Pressure Non-Invasive [address] CLEMENTINA JUNIOR MD [facility] 01-04-2023 03:36-0500 Body temperature 98.06 [degF] DR CLEMENTINA JUNIOR MD [facility] 01-04-2023 03:36-0500 Diastolic Blood Pressure Non-Invasive [address] CLEMENTINA JUNIOR MD [facility] 01-04-2023 03:36-0500 Heart rate 54 /min DR CLEMENTINA JUNIOR MD [facility] 01-04-2023 03:36-0500 Reason For Taking VItal Signs DR CLEMENTINA JUNIOR MD [facility] 01-04-2023 03:36-0500 Respiratory rate 16 /min DR CLEMENTINA JUNIOR MD [facility] 01-04-2023 03:36-0500 Systolic Blood Pressure Non-Invasive [address] CLEMENTINA JUNIOR MD [facility] 01-03-2023 23:29-0500 Body temperature 97.88 [degF] DR CLEMENTINA JUNIOR MD [facility] 01-03-2023 23:29-0500 Diastolic Blood Pressure Non-Invasive [address] CLEMENTINA JUNIOR MD [facility] 01-03-2023 23:29-0500 Heart rate 59 /min DR CLEMENTINA JUNIOR MD [facility] 01-03-2023 23:29-0500 Reason For Taking VItal Signs DR CLEMENTINA JUNIOR MD [facility] 01-03-2023 23:29-0500 Respiratory rate 18 /min DR CLEMENTINA JUNIOR MD [facility] 01-03-2023 23:29-0500 Systolic Blood Pressure Non-Invasive [address] CLEMENTINA JUNIOR MD [facility] 01-03-2023 19:21-0500 Heart rate 61 /min DR CLEMENTINA JUNIOR MD [facility] 01-03-2023 19:21-0500 Reason For Taking VItal Signs DR CLEMENTINA JUNIOR MD [facility] 01-03-2023 16:50-0500 Body height [address] CLEMENTINA JUNIOR MD [facility] 01-03-2023 16:50-0500 Body weight [address] CLEMENTINA JUNIOR MD [facility] 01-03-2023 16:50-0500 Body weight 28.58 kg/m2 DR CLEMENTINA JUNIOR MD [facility] 01-03-2023 16:41-0500 Blood Pressure Cuff Size DR CLEMENTINA JUNIOR MD [facility] 01-03-2023 16:41-[address] CLEMENTINA JUNIOR MD [facility] 01-03-2023 16:41-[address] CLEMENTINA JUNIOR MD [facility] 01-03-2023 16:41-0500 Body temperature 96.8 [degF] DR CLEMENTINA JUNIOR MD [facility] 01-03-2023 16:41-0500 Heart rate 56 /min DR CLEMENTINA JUNIOR MD [facility] 01-03-2023 15:03-0500 Body temperature 96.62 [degF] DR CLEMENTINA JUNIOR MD [facility] 01-03-2023 14:55-0500 Respiratory Rate - Anes 18 br/min DR CLEMENTINA JUNIOR [facility] 01-03-2023 14:50-0500 Respiratory Rate - Anes 20 br/min DR CLEMENTINA JUNIOR [facility] 01-03-2023 14:45-0500 Respiratory Rate - Anes 16 br/min DR CLEMENTINA JUNIOR [facility] 01-03-2023 12:53-0500 Body height [address] CLEMENTINA JUNIOR MD [facility] 01-03-2023 12:53-0500 Body temperature 97.52 [degF] DR CLEMENTINA JUNIOR MD [facility] 01-03-2023 12:53-0500 Body weight [address] CLEMENTINA JUNIOR MD [facility] 01-03-2023 12:53-0500 Heart rate 79 /min DR CLEMENTINA JUNIOR MD [facility] 01-02-2023 08:09-0500 Blood Pressure Cuff Size DR CLEMENTINA JUNIOR MD [facility] 01-02-2023 08:09-[address] CLEMENTINA JUNIOR MD [facility] 01-02-2023 08:09-[address] CLEMENTINA JUNIOR MD [facility] 01-02-2023 08:09-0500 Body height [address] CLEMENTINA JUNIOR [facility] 01-02-2023 08:09-0500 Body weight [address] CLEMENTINA JUNIOR [facility] 01-02-2023 08:09-0500 Body weight 28.58 kg/m2 DR CLEMENTINA JUNIOR MD [facility] 01-02-2023 08:09-0500 Diastolic Blood Pressure Non-Invasive [address] CLEMENTINA JUNIOR [facility] 01-02-2023 08:09-0500 Heart rate 67 /min DR CLEMENTINA JUNIOR MD [facility] 01-02-2023 08:09-0500 Systolic Blood Pressure Non-Invasive [address] CLEMENTINA JUNIOR [facility] 12-22-2022 17:41-0500 Body height 190.[address] Bashir Vogt Work Phone: [facility] 12-22-2022 17:41-0500 Body mass index (BMI) [Ratio] 27.7 kg/m2 Dr. Bashir Vogt Work Phone: [facility] 12-22-2022 17:41-0500 Body temperature 97.8 [degF] Dr. Bashir Vogt Work Phone: [facility] 12-22-2022 17:41-0500 Body weight 100.[address] Bashir Vogt Work Phone: [facility] 12-22-2022 17:41-0500 Diastolic blood pressure 93 mm[Hg] Dr. Bashir Vogt Work Phone: [facility] 12-22-2022 17:41-0500 Heart rate 90 /min Dr. Bashir Vogt Work Phone: [facility] 12-22-2022 17:41-0500 Respiratory rate 16 /min Dr. Bashir Vogt Work Phone: [facility] 12-22-2022 17:41-0500 SaO2% (BldA) [Mass fraction] 98 % Dr. Bashir Vogt Work Phone: [facility] 12-22-2022 17:41-0500 Systolic blood pressure 137 mm[Hg] Dr. Bashir Vogt Work Phone: [facility] 12-13-2022 09:26-0500 Body mass index (BMI) [Ratio] 27.2 kg/m2 Dr. Bashir Vogt Work Phone: [facility] 12-13-2022 09:26-0500 Body temperature 96.3 [degF] Dr. Bashir Vogt Work Phone: [facility] 12-13-2022 09:26-0500 Body weight 101.[address] Bashir Vogt Work Phone: [facility] 12-13-2022 09:26-0500 Diastolic blood pressure 82 mm[Hg] Dr. Bashir Vogt Work Phone: [facility] 12-13-2022 09:26-0500 Heart rate 96 /min Dr. Bashir Vogt Work Phone: [facility] 12-13-2022 09:26-0500 Respiratory rate 16 /min Dr. Bashir Vogt Work Phone: [facility] 12-13-2022 09:26-0500 SaO2% (BldA) [Mass fraction] 97 % Dr. Bashir Vogt Work Phone: [facility] 12-13-2022 09:26-0500 Systolic blood pressure 128 mm[Hg] Dr. Bashir Vogt Work Phone: [facility] 11-23-2022 10:06-0500 Body height 193.[address] Bashir Vogt Work Phone: [facility] 11-23-2022 10:06-0500 Body mass index (BMI) [Ratio] 28 kg/m2 Dr. Bashir Vogt Work Phone: [facility] 11-23-2022 10:06-0500 Body temperature 97.2 [degF] Dr[facility] [facility] 11-23-2022 10:06-0500 Body weight 104.[address] Bashir Vogt Work Phone: [facility] 11-23-2022 10:06-0500 Diastolic blood pressure 80 mm[Hg] Dr. Bashir Vogt Work Phone: [facility] 11-23-2022 10:06-0500 Heart rate 62 /min Dr. Bashir Vogt Work Phone: [facility] 11-23-2022 10:06-0500 Respiratory rate 16 /min Dr. Bashir Vogt Work Phone: [facility] 11-23-2022 10:06-0500 SaO2% (BldA) [Mass fraction] 96 % Dr. Bashir Vogt Work Phone: [facility] 11-23-2022 10:06-0500 Systolic blood pressure 132 mm[Hg] Dr. Bashir Vogt Work Phone: [facility] Encounters Encounter Date Encounter Type Care Provider Facility Start: 04-20-2025 End: 04-20-[address] Bashir Vogt DO Work Phone: [facility] Work Phone: Start: 04-20-2025 End: 04-20-[address] Ulysses Crystal MD -Laboratory [place] Work Phone: Start: 04-20-2025 End: 04-20-2025 ambulatory Bashir Vogt Facility:[facility] Start: 10-02-2024 End: 11-27-2024 Admission to same day surgery center LAINA PELLETIER PA-C [facility] Start: 10-02-2024 End: 11-27-2024 ambulatory BASHIR VOGT DO Facility:[facility] Start: 09-30-2024 End: 09-30-[address] DAWIT BELTRÁN MD Facility:[facility] Start: 09-30-2024 End: 09-30-[address] DAWIT BELTRÁN MD [facility] Start: 09-02-2024 Encounter for other preprocedural examination Bashir Vogt [facility] Start: 09-02-[address] Mora Vogt DO Work Phone: [facility] Comment on above: Cleared for surgery Start: 09-02-2024 End: 09-02-2024 ambulatory Bashir Vogt Facility:[facility] Start: 09-01-2024 End: 09-01-[address] DAWIT BELTRÁN MD Facility:[facility] Start: 09-01-2024 End: 09-01-[address] DAWIT BELTRÁN MD [facility] Start: 09-01-2024 End: 09-01-[address] DAWIT BELTRÁN MD [facility] Start: 09-01-2024 End: 09-01-[address] DAWIT BELTRÁN MD Facility:[facility] Start: 08-11-2024 End: 08-11-2024 ambulatory Bashir Vogt Facility:[facility] Start: [address] DAWIT HARRISON MD Facility:[facility] Start: [address] DAWIT HARRISON MD Facility:[facility] Start: 02-27-2024 End: 04-21-2024 ambulatory COLBY THOMPSON Facility:[facility] Start: 02-27-2024 End: 04-21-2024 Coordination of care plan COLBY KIMBROUGH PA [facility] Start: 02-15-2024 End: 02-15-2024 Emergency department patient visit EMMETT MOSS MD [facility] Start: 06-04-2023 End: 06-04-[address] Bashir Vogt Work Phone: [facility] Work Phone: Start: 06-04-2023 End: 06-04-[address] Bashir Vogt Work Phone: [facility]-Laboratory Work Phone: Start: 05-23-2023 End: 05-23-[address] Bashir Vogt Work Phone: [facility] Internal [facility] Work Phone: Start: 01-03-2023 End: 01-04-[address] CLEMENTINA JUNIOR MD [facility] Start: 01-02-2023 End: 01-02-[address] CLEMENTINA JUNIOR MD [facility] Start: 12-22-2022 End: 12-22-2022 Emergency department patient visit Dr. Bashir Vogt Work Phone: [facility]-Emergency Department Start: 12-13-2022 End: 12-13-[address] Bashir Vogt Work Phone: [facility] Work Phone: Start: 12-13-2022 End: 12-13-[address] Bashir Vogt Work Phone: [facility] Start: 11-24-2022 End: 11-24-[address] Bashir Vogt Work Phone: [facility] Work Phone: Start: 11-24-2022 End: 11-24-[address] Bashir Vogt Work Phone: [facility]-Laboratory, Specimen Start: 11-23-2022 End: 11-23-[address] Bashir Vogt Work Phone: [facility] Work Phone: Start: 11-23-2022 End: 11-23-[address] Bashir Vogt Work Phone: [facility] Internal [facility] Procedures Date Procedure Procedure Detail Performing Clinician Start: 09-30-2024 Total replacement of left knee joint DR DAWIT BELTRÁN MD Back structure, excl uding neck (body structure) DR CLEMENTINA JUNIOR MD Measurement of occul t blood in stool specimen using immunoassay Dr. Bashir Vogt Work Phone: Transurethral prostatectomy DR DAWIT BELTRÁN MD Plan of Treatment Date Care Activity Detail Author Patient Education Urinary Tract Infections in Men ED Rojo Catheter, Care [facility] Work Phone: Patient referral [facility] Work Phone: Immunizations Immunization Date Immunization Notes Care Provider Fa cility 11-23-2021 SARS-CoV-2 mRNA (tozinameran) vaccine DR CLEMENTINA JUNIOR MD [facility] 10-19-2021 Covid (Pfizer) Dr. Bashir morris Work Phone: [facility] 02-17-2021 Covid (Pfizer) Dr. Bashir morris Work Phone: [facility] 01-27-2021 Covid (Pfizer) Dr. Bashir morris Work Phone: [facility] Comment on above: Result Comment: 2022: [id number] 06-12-2020 tetanus toxoid, redu humberto diphtheria toxoid, and acellular pertussis vaccine, adsorbed DR CLEMENTINA JUNIOR MD [facility] Payers Date Payer Category Payer Unknown [id number] 2024 Self-pay [id number] 2024 Medicare [id number] 1955 Unknown [id number] 2.16.8 [id number] 1954 Unknown [id number] 2.16.8 [id number] 1954 Unknown [id number] 2.16.8 [id number] 1954 Unknown [id number] 2.16.8 [id number] 1954 Unknown [id number] 2.16.8 [id number] 1954 Unknown [id number] 2.16.8 [id number] 1954 Unknown [id number] 2.16.8 [id number] 1954 Unknown [id number] 2.16.8 [id number] 1954 Unknown [id number] 2.16.8 [id number] Medicare MEDICARE PART A B [id number] 2 [id number] Unknown [id number] Unknown [id number] 2.16.8 [id number] Unknown [id number] 2.16.8 [id number] Unknown [id number] 2.16.8 [id number] Social History Date Type Detail Facility Start: 11-23-2022 End: 05-23-2023 Tobacco smoking status UTIS Unknown if ever smoked [facility] Start: 1955 Sex Assigned At Male [facility] Start: 02-27-2021 End: 04-11-2024 Tobacco smoking status Never smoked tobacco (finding) [facility] Sex Assigned At [facility] Start: 08-27-2015 Sex Male (finding) [facility] Medical Equipment Procedure Code Equipment Code Equipment Origin al Text Equipment Identifier Dates PATCH,AMNION 2X3CM FDA Start: 01-10-2022 PATCH,AMNION 2X3CM FDA Start: 01-10-2022 PATCH,AMNION 2X3CM FDA Start: 01-10-2022 PATCH,AMNION 2X3CM FDA Start: 01-10-2022 PATCH,AMNION 2X3CM FDA Start: 01-10-2022 PATCH,AMNION 2X3CM FDA Start: 01-10-2022 Functional Status Date Assessment Result Facility 10-02-2024 Functional Status Objective: Cardiovascular screen: BP: 160/80 HR: 85 BPM O2 sat: 97% Gait: Ambulates with stiff leg gait pattern and lacks terminal knee extension during terminal swing phase of gait. Relies heavily on FWW with flexed posture. With cues this is partially corrected. Weight bearing status: WBAT Observation in standing: weight shift R relies heavily on FWW Effusion: min to no anterior knee effusion Functional Strength: ASLR: 10 Palpation: Denies tenderness to palpation bilat calf region, denies chest pain, denies shortness of breath Special Tests: Homans: - bilat [facility] 09-30-2024 Functional Status Mod [facility] Functional Status left knee high applied/ on [facility] 09-30-2024 Functional Status confirmed [facility] 09-30-2024 Functional Status None [facility] 09-01-2024 Functional Status Sensory Deficits None A [facility] 02-15-2024 Functional Status [facility] ad [facility]ely [facility] Functional Status Standard Safet y ID band on, Call device within reach, Bed in low position, Wheels locked, Visitor at bedside [facility] 01-04-2023 Functional Status Breakfast Percent 100 A [facility] 01-04-2023 Functional Status Multilevel home [facility] 01-04-[address] [facility] 01-03-2023 Functional Status [facility] 01-03-2023 Functional Status [facility] 01-03-2023 Functional Status [facility] osvaldo [facility] 01-03-2023 Functional Status NPO Status Maintained A [facility] 01-02-2023 Functional Status Sensory Deficits None A [facility] Mental Status Date Assessment Result Facility 09-30-2024 Mental Status Orientation Oriented x 4 [facility] 09-30-2024 Mental Status [facility] 09-30-2024 Mental Status [facility] 02-15-2024 Mental Status Orientation Oriented x 4 [facility] 02-15-2024 Mental Status [facility] 01-04-2023 Mental Status Orientation Oriented x 4 [facility] 01-04-2023 Mental Status [facility] 01-03-2023 Mental Status [facility] 01-03-2023 Mental Status Orientation Asse ssment Oriented x 4 [facility] 01-03-2023 Mental Status [facility] Clinical Notes 12-22-2022 to 09-30-2024 Note Date & Type Note Facility 09-30-2024 Hospital Discharge instructions Patient Education 09/30/2024 09:32:19 General Anesthesia, Adult, Care After General Anesthesia, Adult, Care After This sheet gives you information about how to care for yourself after your procedure. Your health care provider may also give you more specific instructions. If you have problems or questions, contact your health care provider. What can I expect after the procedure? After the procedure, the following side effects are common: Pain or discomfort at the IV site. Nausea. Vomiting. Sore throat. Trouble concentrating. Feeling cold or chills. Weak or tired. Sleepiness and fatigue. Soreness and body aches. These side effects can affect parts of the body that were not involved in surgery. Follow these instructions at home: For at least 24 hours after the procedure: Have a responsible adult stay with you. It is important to have someone help care for you until you are awake and alert. Rest as needed. Do not: ?Participate in activities in which you could fall or become injured. ?Drive. ?Use heavy machinery. ?Drink alcohol. ?Take sleeping pills or medicines that cause drowsiness. ?Make important decisions or sign legal documents. ?Take care of children on your own. Eating and drinking Follow any instructions from your health care provider about eating or drinking restrictions. When you feel hungry, start by eating small amounts of foods that are soft and easy to digest (bland), such as toast. Gradually return to your regular diet. Drink enough fluid to keep your urine pale yellow. If you vomit, rehydrate by drinking water, juice, or clear broth. General instructions If you have sleep apnea, surgery and certain medicines can increase your risk for breathing problems. Follow instructions from your health care provider about wearing your sleep device: ?Anytime you are sleeping, including during daytime naps. ?While taking prescription pain medicines, sleeping medicines, or medicines that make you drowsy. Return to your normal activities as told by your health care provider. Ask your health care provider what activities are safe for you. Take gzkp-tct-snkewzs and prescription medicines only as told by your health care provider. If you smoke, do not smoke without supervision. Keep all follow-up visits as told by your health care provider. This is important. Contact a health care provider if: You have nausea or vomiting that does not get better with medicine. You cannot eat or drink without vomiting. You have pain that does not get better with medicine. You are unable to pass urine. You develop a skin rash. You have a fever. You have redness around your IV site that gets worse. Get help right away if: You have difficulty breathing. You have chest pain. You have blood in your urine or stool, or you vomit blood. Summary After the procedure, it is common to have a sore throat or nausea. It is also common to feel tired. Have a responsible adult stay with you for the first 24 hours after general anesthesia. It is important to have someone help care for you until you are awake and alert. When you feel hungry, start by eating small amounts of foods that are soft and easy to digest (bland), such as toast. Gradually return to your regular diet. Drink enough fluid to keep your urine pale yellow. Return to your normal activities as told by your health care provider. Ask your health care provider what activities are safe for you. This information is not intended to replace advice given to you by your health care provider. Make sure you discuss any questions you have with your health care provider. Document Released: 02/11/2002 Document Revised: 11/08/2018 Document Reviewed: 06/21/2018 [employer] Patient Education 2020 [employer]. 09/30/2024 09:32:10 Total Knee Replacement, Care After, Jcky-ba-Smdf Total Knee Replacement, Care After This sheet gives you information about how to care for yourself after your procedure. Your doctor may also give you more specific instructions. If you have problems or questions, contact your doctor. What can I expect after the procedure? After the procedure, it is common to have: Pain. Swelling. A small amount of blood coming from your cut from surgery (incision). Clear fluid coming from your cut from surgery. Limited movement of your knee. Follow these instructions at home: Medicines Take qmdq-etu-siagafs and prescription medicines only as told by your doctor. If you were prescribed a blood thinner (anticoagulant), take it as told by your doctor. Ask your doctor if the medicine prescribed to you: ?Requires you to avoid driving or using heavy machinery. ?Can cause trouble pooping (constipation). You may need to take steps to prevent or treat trouble pooping: ?Drink enough fluid to keep your pee (urine) pale yellow. ?Take whpc-lya-zzezcqb or prescription medicines. ?Eat foods that are high in fiber. These include beans, whole grains, and fresh fruits and vegetables. ?Limit foods that are high in fat and sugar. These include fried or sweet foods. Bathing Do not take baths, swim, or use a hot tub until your doctor approves. Ask your doctor if you may take showers. You may only be allowed to take sponge baths. Keep your bandage (dressing) dry until your doctor says it can be taken off. Incision care and drain care Follow instructions from your doctor about how to take care of your cut from surgery. Make sure you: ?Wash your hands with soap and water before and after you change your bandage. If you cannot use soap and water, use hand bag sewer. ?Change your bandage as told by your doctor. ?Leave stitches (sutures), skin glue, or skin tape (adhesive) strips in place. They may need to stay in place for 2 weeks or longer. If tape strips get loose and curl up, you may trim the loose edges. Do not remove tape strips completely unless your doctor says it is okay. Check your cut from surgery and your drain site every day for signs of infection. Check for: ?More redness, swelling, or pain. ?More fluid or blood. ?Warmth. ?Pus or a bad smell. If you have a drain, follow instructions from your doctor about caring for it. Managing pain, stiffness, and swelling If told, put ice on your knee. ?Put ice in a plastic bag or use the icing device (cold flow pad or cryocuff) that you were given. Follow your doctor's directions about how to use the icing device. ?Place a towel between your skin and the bag or between your skin and the icing device. ?Leave the ice on for 20 minutes, 2 3 times per day. If told, put heat on your knee before you exercise. Use the heat source that your doctor recommends, such as a moist heat pack or a heating pad. ?Place a towel between your skin and the heat source. ?Leave the heat on for 20 30 minutes. ?Remove the heat if your skin turns bright red. This is very important if you are unable to feel pain, heat, or cold. You may have a greater risk of getting burned. Move your toes often. Raise (elevate) your knee above the level of your heart while you are sitting or lying down. ?Use several pillows to keep your leg straight. ?Do not put a pillow just under the knee. If the knee is bent for a long time, this may make the knee stiff. Wear elastic knee support as told by your doctor. Activity Rest as told by your doctor. Do not sit for a long time without moving. Get up to take short walks every 1 2 hours. This is important. Ask for help if you feel weak or unsteady. Ask your doctor what activities are safe for you. Avoid activities that put stress on your knees. These include running, jumping rope, and jumping jacks. Do not play contact sports until your doctor says it is okay. Do exercises as told by your physical therapist. If you have been sent home with a knee joint motion machine (continuous passive motion machine), use it as told by your doctor. Safety Do not use your leg to support your body weight until your doctor says that you can. Use crutches or a walker as told by your doctor. Do not drive until your doctor says it is okay. Ask your doctor when it is safe to drive. General instructions Do not use any products that contain nicotine or tobacco, such as cigarettes, e-cigarettes, and chewing tobacco. These can delay healing. If you need help quitting, ask your doctor. Wear special socks (compression stockings) as told by your doctor. Tell your doctor if you plan to have dental work. Also: ?Tell your dentist about your joint replacement. ?Ask your doctor if there are instructions you need to follow before dental care and routine cleanings. Keep all follow-up visits as told by your doctor. This is important. Contact a doctor if: You have more redness, swelling, or pain around your cut from surgery or your drain. You have more fluid or blood coming from your cut from surgery or your drain. You have pus or a bad smell coming from your cut from surgery or your drain. Your cut from surgery or your drain area feels warm to the touch. You have a fever. Your cut breaks open. You have knee pain that does not go away. The movement of your knee is getting worse. Your new joint feels loose. Get help right away if you have: Pain in your calf or thigh. Swelling in your calf or thigh. Shortness of breath. Trouble breathing. Chest pain. Summary After the procedure, it is common to have pain and swelling, blood or fluid coming from your cut from surgery, and trouble moving your knee. Follow instructions from your doctor about how to take care of your cut from surgery. Use crutches or a walker as told by your doctor. If you were prescribed a blood thinner, take it as told by your doctor. Keep all follow-up visits as told by your doctor. This is important. This information is not intended to replace advice given to you by your health care provider. Make sure you discuss any questions you have with your health care provider. Document Released: 01/27/2013 Document Revised: 03/15/2020 Document Reviewed: 06/19/2019 [employer] Patient Education 2020 [employer] Follow Up Care 2024 10:41:09 With:DAWIT BELTRÁN MD Address: [address] [place] [address] [facility] [place] [address] [phone] When: Unknown Comments:SCHEDULE FOLLOW-UP APPT SOON. CALL OFFICE WITH ANY QUESTIONS. GO TO EMERGENCY ROOM WITH ANY URGENT OR EMERGENT CONCERNS. [facility] Annita 09-30-2024 Note Discharge Instructions Thank you for allowing [facility] to assist you with your healthcare needs. The following is important discharge information regarding your hospital visit. Your Care Team BASHIR VOGT DO DR. BELTRÁN What to do next Scheduled Follow-Up Appointments Appointment Type When Where Contact Information StatusPT Outpatient Evaluation 10/02/2024 01:30 PM [facility] Physical Therapy [phone] Confirmed Follow Up Appointments Follow Up with DAWIT BELTRÁN MD Where:[address] [facility] [place] [place] [address] [phone] Additional Information: SCHEDULE FOLLOW-UP APPT SOON. CALL OFFICE WITH ANY QUESTIONS. GO TO EMERGENCY ROOM WITH ANY URGENT OR EMERGENT CONCERNS. Allergies NKA Medications Please ask your primary doctor or pharmacist before taking any other medication not listed, including over the counter drugs, herbal medications, vitamins and or supplements as they may interact with your home medications. What How Much When Instructions Last Dose Unchanged cholecalciferol (Vitamin D3) 50 Microgram by mouth Every day Unchanged chondroitin/ glucosamine/ methylsulfonylmethane (Glucosamine Chondroitin Advanced oral tablet) 3 tab(s) by mouth Once a day with food Please take this list to your next doctor s visit. Bring all medications you take, including over the counter medications, herbals and other supplements with you to your doctor s visit. Patients and families are reminded to discard old lists and to update any records with all medication providers or retail pharmacies. Education Materials General Anesthesia, Adult, Care After This sheet gives you information about how to care for yourself after your procedure. Your health care provider may also give you more specific instructions. If you have problems or questions, contact your health care provider. What can I expect after the procedure? After the procedure, the following side effects are common: Pain or discomfort at the IV site. Nausea. Vomiting. Sore throat. Trouble concentrating. Feeling cold or chills. Weak or tired. Sleepiness and fatigue. Soreness and body aches. These side effects can affect parts of the body that were not involved in surgery. Follow these instructions at home: For at least 24 hours after the procedure: Have a responsible adult stay with you. It is important to have someone help care for you until you are awake and alert. Rest as needed. Do not: ? Participate in activities in which you could fall or become injured. ? Drive. ? Use heavy machinery. ? Drink alcohol. ? Take sleeping pills or medicines that cause drowsiness. ? Make important decisions or sign legal documents. ? Take care of children on your own. Eating and drinking Follow any instructions from your health care provider about eating or drinking restrictions. When you feel hungry, start by eating small amounts of foods that are soft and easy to digest (bland), such as toast. Gradually return to your regular diet. Drink enough fluid to keep your urine pale yellow. If you vomit, rehydrate by drinking water, juice, or clear broth. General instructions If you have sleep apnea, surgery and certain medicines can increase your risk for breathing problems. Follow instructions from your health care provider about wearing your sleep device: ? Anytime you are sleeping, including during daytime naps. ? While taking prescription pain medicines, sleeping medicines, or medicines that make you drowsy. Return to your normal activities as told by your health care provider. Ask your health care provider what activities are safe for you. Take zzdm-elw-nomfewi and prescription medicines only as told by your health care provider. If you smoke, do not smoke without supervision. Keep all follow-up visits as told by your health care provider. This is important. Contact a health care provider if: You have nausea or vomiting that does not get better with medicine. You cannot eat or drink without vomiting. You have pain that does not get better with medicine. You are unable to pass urine. You develop a skin rash. You have a fever. You have redness around your IV site that gets worse. Get help right away if: You have difficulty breathing. You have chest pain. You have blood in your urine or stool, or you vomit blood. Summary After the procedure, it is common to have a sore throat or nausea. It is also common to feel tired. Have a responsible adult stay with you for the first 24 hours after general anesthesia. It is important to have someone help care for you until you are awake and alert. When you feel hungry, start by eating small amounts of foods that are soft and easy to digest (bland), such as toast. Gradually return to your regular diet. Drink enough fluid to keep your urine pale yellow. Return to your normal activities as told by your health care provider. Ask your health care provider what activities are safe for you. This information is not intended to replace advice given to you by your health care provider. Make sure you discuss any questions you have with your health care provider. Document Released: 02/11/2002 Document Revised: 11/08/2018 Document Reviewed: 06/21/2018 [employer] Patient Education 2020 [employer]. Total Knee Replacement, Care After This sheet gives you information about how to care for yourself after your procedure. Your doctor may also give you more specific instructions. If you have problems or questions, contact your doctor. What can I expect after the procedure? After the procedure, it is common to have: Pain. Swelling. A small amount of blood coming from your cut from surgery (incision). Clear fluid coming from your cut from surgery. Limited movement of your knee. Follow these instructions at home: Medicines Take gvoq-lvx-fxotkpg and prescription medicines only as told by your doctor. If you were prescribed a blood thinner (anticoagulant), take it as told by your doctor. Ask your doctor if the medicine prescribed to you: ? Requires you to avoid driving or using heavy machinery. ? Can cause trouble pooping (constipation). You may need to take steps to prevent or treat trouble pooping: ? Drink enough fluid to keep your pee (urine) pale yellow. ? Take wjgh-ccq-tbnzwpz or prescription medicines. ? Eat foods that are high in fiber. These include beans, whole grains, and fresh fruits and vegetables. ? Limit foods that are high in fat and sugar. These include fried or sweet foods. Bathing Do not take baths, swim, or use a hot tub until your doctor approves. Ask your doctor if you may take showers. You may only be allowed to take sponge baths. Keep your bandage (dressing) dry until your doctor says it can be taken off. Incision care and drain care Follow instructions from your doctor about how to take care of your cut from surgery. Make sure you: ? Wash your hands with soap and water before and after you change your bandage. If you cannot use soap and water, use hand bag sewer. ? Change your bandage as told by your doctor. ? Leave stitches (sutures), skin glue, or skin tape (adhesive) strips in place. They may need to stay in place for 2 weeks or longer. If tape strips get loose and curl up, you may trim the loose edges. Do not remove tape strips completely unless your doctor says it is okay. Check your cut from surgery and your drain site every day for signs of infection. Check for: ? More redness, swelling, or pain. ? More fluid or blood. ? Warmth. ? Pus or a bad smell. If you have a drain, follow instructions from your doctor about caring for it. Managing pain, stiffness, and swelling If told, put ice on your knee. ? Put ice in a plastic bag or use the icing device (cold flow pad or cryocuff) that you were given. Follow your doctor's directions about how to use the icing device. ? Place a towel between your skin and the bag or between your skin and the icing device. ? Leave the ice on for 20 minutes, 2 3 times per day. If told, put heat on your knee before you exercise. Use the heat source that your doctor recommends, such as a moist heat pack or a heating pad. ? Place a towel between your skin and the heat source. ? Leave the heat on for 20 30 minutes. ? Remove the heat if your skin turns bright red. This is very important if you are unable to feel pain, heat, or cold. You may have a greater risk of getting burned. Move your toes often. Raise (elevate) your knee above the level of your heart while you are sitting or lying down. ? Use several pillows to keep your leg straight. ? Do not put a pillow just under the knee. If the knee is bent for a long time, this may make the knee stiff. Wear elastic knee support as told by your doctor. Activity Rest as told by your doctor. Do not sit for a long time without moving. Get up to take short walks every 1 2 hours. This is important. Ask for help if you feel weak or unsteady. Ask your doctor what activities are safe for you. Avoid activities that put stress on your knees. These include running, jumping rope, and jumping jacks. Do not play contact sports until your doctor says it is okay. Do exercises as told by your physical therapist. If you have been sent home with a knee joint motion machine (continuous passive motion machine), use it as told by your doctor. Safety Do not use your leg to support your body weight until your doctor says that you can. Use crutches or a walker as told by your doctor. Do not drive until your doctor says it is okay. Ask your doctor when it is safe to drive. General instructions Do not use any products that contain nicotine or tobacco, such as cigarettes, e-cigarettes, and chewing tobacco. These can delay healing. If you need help quitting, ask your doctor. Wear special socks (compression stockings) as told by your doctor. Tell your doctor if you plan to have dental work. Also: ? Tell your dentist about your joint replacement. ? Ask your doctor if there are instructions you need to follow before dental care and routine cleanings. Keep all follow-up visits as told by your doctor. This is important. Contact a doctor if: You have more redness, swelling, or pain around your cut from surgery or your drain. You have more fluid or blood coming from your cut from surgery or your drain. You have pus or a bad smell coming from your cut from surgery or your drain. Your cut from surgery or your drain area feels warm to the touch. You have a fever. Your cut breaks open. You have knee pain that does not go away. The movement of your knee is getting worse. Your new joint feels loose. Get help right away if you have: Pain in your calf or thigh. Swelling in your calf or thigh. Shortness of breath. Trouble breathing. Chest pain. Summary After the procedure, it is common to have pain and swelling, blood or fluid coming from your cut from surgery, and trouble moving your knee. Follow instructions from your doctor about how to take care of your cut from surgery. Use crutches or a walker as told by your doctor. If you were prescribed a blood thinner, take it as told by your doctor. Keep all follow-up visits as told by your doctor. This is important. This information is not intended to replace advice given to you by your health care provider. Make sure you discuss any questions you have with your health care provider. Document Released: 01/27/2013 Document Revised: 03/15/2020 Document Reviewed: 06/19/2019 Elsevier Patient Education 2020 [employer] Additional Information VACCINATE! IT SAVES LIVES! Members of the community who have not yet received the COVID-19 vaccine and would like to receive it can visit one of [facility] vaccine clinics. There are many vaccine clinic locations within the [facility]. For locations and available times, please visit [email or web address].[email or web address] [email or web address] It is important to note that some COVID mobile vaccine clinics are held outdoors and may be canceled in rainy or stormy conditions. To learn more about pediatric vaccinations (ages 5-11), we invite you to visit the [facility] webpage. https://www.b-datums.org/pages /2175-Iuyfa-Vkldhbmmxum-Frequently-A sked-Questions.html To learn more about the COVID-19 vaccine, we invite you to visit the CDC website for a list of frequently asked questions.https://www.cdc.gov/marques virus/2019-ncov/vaccines/faq.html [employer] Patient Portal Access Instructions: Stay connected with your healthcare team and access your personal medical information anytime with the [employer] Patient Portal. Please follow the directions below to create your [employer] account: 1.Access the email account you provided upon registration to the hospital/physician office.2.Look for an invitation email from [facility].3.Open the email and access the invitation link: Accept Invitation to [facility].4.Fill in the required dos santos to create your account. To access your account, visit [email or web address]. Click the blue button labeled Access Patient Portal and then log in with the username and password that you created in the steps above. You will be able to view your test results, lab results, a summary of your visits, upcoming appointments and more. There is also a convenient messaging option where you can send secure messages to your provider. In addition, you will have the ability to download any documents or summaries to your computer and/or send the information securely to a physician. Remember that your healthcare information is confidential, so carefully consider who you will allow to register on the [employer] Patient Portal for access to your information. You can also access the [employer] Patient Portal on the [facility] parisa. Simply click on Patient Portal and then log into your account. If you would like to receive a full copy of your medical records, please contact the [facility] Medical Records Department by calling [phone], Sunday through Sunday between 8 a.m. and 4:30 p.m. HOW TO SAFELY DISPOSE OF PRESCRIPTION MEDICATIONS Please use one of the following methods to safely dispose of your unused medications. 1.Use a drug disposal kit: the drug disposal pouch allows you to safely discard your old and unused drugs. Ask your nurse to give you one when you are discharged.2.Visit a local take-back location: Many local pharmacies and police departments have programs that collect old and unwanted prescription drugs. Call your local pharmacy or go to http://Towandas book/4K7Sp8k to find one close to you.3.Make use of household items: Use cat litter or old coffee grounds to dispose medications if other options are not available. Mix your drugs with these household products, seal them in an airtight container and throw it into the garbage. Call [facility]: [phone] to be sure your drugs can be disposed of in this way. Some medicines may require a different approach.4.Never flush your medications down the toilet. IF YOU HAVE BEEN PRESCRIBED AN OPIOID FOR PAIN If you have been prescribed an opioid (such as hydrocodone, oxycodone or morphine), it is critical to understand the possible side effects and risks of opioid pain medications. Even when taken as directed, opioids can have several side effects including: Tolerance, meaning you might need to take more of a medication for the same pain relief. Nausea, vomiting and/or constipation. Sleepiness, dizziness, dry mouth, confusion, depression or itching. Physical dependence, meaning you have withdrawal symptoms when a medication is stopped, can develop within a few days. KNOW YOUR RESPONSIBILITIES It is important to know exactly how much and how often to take the opioid pain medications you are prescribed. Never take opioids in higher amounts or more often than prescribed. Do not combine opioids with alcohol or other drugs that cause drowsiness, such as benzodiazepines, also known as benzos, including diazepam and alprazolam, muscle relaxants or sleep aids. Never sell or share prescription opioids. This is illegal. Store opioids in a secure place and out of reach of others (including children, family, friends and visitors). The last page of this document has been signed and retained as a CHART COPY. Signatures Patient Education Materials General Anesthesia, Adult, Care After Total Knee Replacement, Care After, Epzp-wf-Jfkp Medication Leaflets My discharge plan and instructions have been reviewed and explained to me and I,VINCENZO BENEDICT understand my current condition and have read and understand these discharge instructions. I have received a written copy of the plan/instructions. If I have questions, I am aware that I should contact my doctor. Patient/Production Hand Signature: ___ Date/Time: Relationship to Patient: _ Witness Name/Signature: Date/Time: [facility] 09-30-2024 Note ORIGINAL EXAMINATION: TWO XRAY VIEWS OF THE LEFT KNEE09/30/2024 9:26 am XR portable left knee AP and cross-table lateral two views COMPARISON: CT 09/01/2024 HISTORY: ORDERING SYSTEM PROVIDED HISTORY: Reason for Exam: Status Post Arthroplasty, Status Post Arthroplasty , check prosthesis alignment FINDINGS: The left knee joint has been replaced with a prosthesis that show satisfactory alignment. There are expected postoperative changes in the soft tissues. IMPRESSION: Expected postoperative appearance following left knee replacement surgery. Interpreted by: Luigi Bah MD Preliminary Report By: Luigi Bah MD Electronically signed By Luigi Bah MD Dictated Date: 09/30/2024 9:44:58 AM Prelim Date: 09/30/2024 9:45:23 AM Sign Date: 09/30/2024 9:45:23 AM Ordering Provider: DAWIT BELTRÁN [facility] 09-30-2024 Note ORIGINAL Images acquired, not reported on this accession number. [facility] 09-30-2024 Anesthesiology Consult note Patient: VINCENZO BENEDICT Age: 69 years Sex: Male : 1955 Associated Diagnoses: None Author: JEREMY LOPEZ Preoperative Information Anesthesia history Patient's history: negative. Family's history: negative. Health Status Allergies: Allergic Reactions (Selected) NKA, Allergies (1) ActiveSeverityReaction NKANone Documented Current medications: (Selected) Inpatient Medications Ordered Decadron: 10 mg, 1 mL, IV Push, AsDirected Naropin 25 mg + Toradol 15 mg + morphine 2.5 mg + EPINEPHrine 0.3 m mg, 5 mL, mL/hr, Other, PREOP pharm Naropin 25 mg + Toradol 15 mg + morphine 2.5 mg + EPINEPHrine 0.3 m mg, 5 mL, mL/hr, Other, PREOP pharm ceFAZolin: 2 gram(s), 200 mL/hr, IV Piggyback, PREOP pharm tranexamic acid 1 g / 100 mL 0.7% NaCl PMX: 1 gram(s), 100 mL, 300 mL/hr, IV Piggyback, AsDirected tranexamic acid 1 g / 100 mL 0.7% NaCl PMX: 1 gram(s), 100 mL, 300 mL/hr, IV Piggyback, AsDirected Documented Medications Documented Glucosamine Chondroitin Advanced oral tablet: 3 tab(s), Oral, qDay, with food, 120 tab(s), 0 Refill(s) Vitamin D3: 50 mcg, 1 cap(s), Oral, Daily, 30 cap(s), 0 Refill(s), Medications (6) Active Scheduled: (6) ceFAZolin 2 gram(s), IV Piggyback, PREOP pharm dexamethasone 10 mg/mL (1mL) SDV 10 mg 1 mL, IV Push, AsDirected ropivacaine 25 mg + ketorolac 15 mg + morphine 2.5 mg + epinephrine 0.3 mg 25 mg 5 mL, Other, PREOP pharm ropivacaine 25 mg + ketorolac 15 mg + morphine 2.5 mg + epinephrine 0.3 mg 25 mg 5 mL, Other, PREOP pharm tranexamic acid PMX 1 gram(s) 100 mL, IV Piggyback, AsDirected tranexamic acid PMX 1 gram(s) 100 mL, IV Piggyback, AsDirected Continuous: (0) PRN: (0) Problem list: Active Problems (3) BPH (benign prostatic hyperplasia) Osteoarthritis Sleep apnea Histories Past Medical History: No active or resolved past medical history items have been selected or recorded. Family History: Cancer Sister Procedure history: Back ([id number]). TURP - Transurethral resection of prostate ([id number]). Social History: Social & Psychosocial Habits Alcohol 09/30/2024 Use: Past Previous treatment: Alcoholics Anonymous Comment: SOBER 40 YEARS - 09/01/2024 07:52 - Lilly Medina RN Substance Abuse 09/30/2024 Use: Past Tobacco 09/30/2024 Tobacco Use: Never (less than 100 in l Home/Environment 09/30/2024 Domestic Concerns None Living situation: Home/Independent Lives In 1st floor bathroom, 1st floor bedroom, 1st floor laundry Current Home Treatments None Nutrition/Health 09/30/2024 Type of diet: Regular Appetite Excellent Eating Difficulties None Physical Examination Vital Signs 09/30/2024 5:52 EST Peripheral Pulse Rate 52 bpm LOW Respiratory Rate 15 br/min Systolic Blood Pressure Non-Invasive 144 mmHg HI Diastolic Blood Pressure Non-Invasive 92 mmHg HI Vital Signs (last 24 hrs) Last Charted SBPH 144 mmHg (SEP 30 05:52) DBPH 92 mmHg (SEP 30 05:52) Measurements from flowsheet : Measurements 09/30/2024 5:52 EST Height 193 cm Admission Weight 108.3 kg [place] Body Weight 86.76 kg Pain assessment: Pain Assessment 09/30/2024 6:29 EST Primary Pain Intensity 0 09/30/2024 5:52 EST Primary Pain Intensity 0 Pain Scale Type 0-10 Pain scale . General: Alert and oriented. Airway: Normal temporomandibular joint mobility. Mallampati classification: II (soft palate, fauces, uvula visible). Dentition Evaluation: Denies loose/chipped teeth. Respiratory: Lungs are clear to auscultation, Respirations are non-labored. Cardiovascular: Normal rate, Regular rhythm. Neurologic: Alert, Oriented. Review / Management Results review: No qualifying data available , Lab results 09/30/2024 6:35 EST SN - Preop - CTm Pt in SDS Room 09/30/2024 5:44 SN - Preop - CTm Pt Ready for OR/Proced 09/30/2024 6:30 09/30/2024 6:34 EST Lactated Ringers Injection 1,000 mL mL 09/30/2024 6:33 EST Continuous IV Infusions LR Hand Right 09/30/2024 20 gauge Peripheral IV Activity: Insert new site Peripheral IV Dressing Condition: Clean, Dry, Intact Peripheral IV Dressing Activity: Applied, Transparent dressing Peripheral IV Line Status/Patency: Flushes easily Peripheral IV Line Care: Secured with tape Peripheral IV Site Condition: No complications Peripheral IV Number of Attempts: 1 citric acid-sodium citrate Not Done: Other (Not Done) 09/30/2024 6:29 EST Primary Pain Intensity 0 celecoxib 400 mg mg oxyCODONE 10 mg mg 09/30/2024 6:25 EST famotidine 20 mg mg 09/30/2024 5:52 EST Height 193 cm Admission Weight 108.3 kg [place] Body Weight 86.76 kg Peripheral Pulse Rate 52 bpm LOW Respiratory Rate 15 br/min Systolic Blood Pressure Non-Invasive 144 mmHg HI Diastolic Blood Pressure Non-Invasive 92 mmHg HI Primary Pain Intensity 0 Pain Scale Type 0-10 Pain scale Heart Rhythm Regular Dorsalis Pedis Pulse, Left 2+ Normal Dorsalis Pedis Pulse, Right 2+ Normal Respirations Unlabored Respiratory Pattern Regular Breath Sounds Auscultated Anterior only All Lobes Breath Sounds Clear Oxygen Therapy Room air Oxygen Saturation 96 % Abdomen Description Non-distended, Soft Abdomen Palpation Non-Tender, Soft Bowel Sounds All Quadrants Present Urinary Elimination Voiding, no difficulties Skin Description Storla, Normal for ethnicity, Dry Mucous Membrane Color Storla IV Present Present Neurological Symptoms Patient denies Extremity Movement Equal Characteristics of Speech Clear Level of Consciousness Alert Strength All Extremities Strong Tone All Extremities Normal Sensation All Extremities Intact Affect/Behavior Appropriate, Calm, Cooperative Orientation Oriented x 4 Allergies Yes Anesthesia Extension Set Applied Yes Consent Form Signed Yes Patient Dressed In Hospital gown, No undergarments Pre-op Preparation Glasses removed, Shave prep done by clippers, Undergarments removed CHG Preoperative Wash/Wipe Night before procedure, Day of procedure, Site specific wipe Preop Nasal Swab Povidone-Iodine History & Physical Update On Chart Yes History & Physical On Chart Yes Obstructive Sleep Apnea Assess Completed Yes NPO Status confirmed Patient ID Band on and Verified Yes Implants Verified Yes Pacemaker/AICD Verified Yes Site Verified by Patient/Family Yes Anesthesia Consent Signed Yes Blood Consent Signed Yes Last Fluid Intake 09/29/2024 22:00 Last Food Intake 09/29/2024 22:00 Last Void 09/30/2024 5:54 09/30/2024 5:46 EST Designated Person #1 We May Share ALDAIR BENEDICT [phone] Designated Person #1 Relationship Spouse Privacy Restrictions Requested None Status N/A Sensory Deficits None Diagnosed With Sleep Apnea Yes Advanced Directives No - refuses information Infectious Disease Symptoms Patient states no symptoms Infectious Disease Recent Exposure No Alcohol and Drug Use No Employee of Institutional Living No Health Care Employee No History of Exposure to TB No History of Positive Chest X-Ray for TB No History of Positive TB Skin Test No Homeless No Known Immunosuppression No Recent Immigrant No Resident of Institutional Living No Bloody Sputum No Fatigue No Fever No Loss of Appetite No Night Sweats No Persistent Cough > 3 Weeks No Weight Loss No Patient Aware Date/Time Of Surgery Yes Previous Surgery At This Facility Yes Pre-Op Patient Education NPO after midnight, No jewelry, Responsible Democrat, Aware of surgery location, Pre-op education done, 1 bottle CHG wash with instructions given, No ordered medications, Total Joint Replacement/Colorectal Book Given, SSI prevention handout given, Anesthesia block education provided SN - Preprocedure Comments Spoke with patient, Verbalizes/Nonverbally indicates understanding, Other: bring cpap Anesthesia Evaluation Date/Time 09/01/2024 8:52 Anesthesia Evaluation Performed By ISABEL PRINGLE DIRECTOR SOCIAL WELFARE-PANEL MONITOR Anesthesia Evaluation Result Approved Barriers to Learning None evident Teaching Method Explanation Preferred Spoken Language [place] Preferred Written Language [place] Teaching Evaluation No further teaching needed Total Joint Book Given Yes Safety Brochure Information Reviewed Yes [facility] Video Viewed No Patient's Current Physicians Patient's Current Physicians History of Malignant Hyperthermia No Discharge To, Anticipated Home independently Prev Test Positive/Diagnosis w/COVID-19 No Current Quarantine/Isolated any Illness No Any Contact with Sick Animals/Birds No Traveled Anywhere in Last 30 Days No Lost Weight Unintentionally Recently No Eat Poorly Due to Decreased Appetite No Total MST Score 0 N/A Personal Devices, Patient Valuables Glasses Anesthesia/Transfusions Prior anesthesia Admission Note-Nursing Same Day Patient History . Assessment and Plan [place] [employer] Anesthesi[employer] (ASA) physical status classification: Class III. Anesthetic Preoperative Plan Anesthetic technique: Spinal. Regional: Spinal. Postoperative pain management: adductor canal block. Risks discussed: nausea, vomiting, headache, hypotension, allergic reaction, serious complications. Informed consent: signed by patient. Digitally Signed by JEREMY LOPEZ on 09/30/2024 06:39 AM [facility] 09-01-2024 Note ORIGINAL EXAMINATION: CT OF THE LEFT KNEE WITHOUT CONTRAST 09/01/2024 9:12 am TECHNIQUE: CT of the left knee was performed without the administration of intravenous contrast. Multiplanar reformatted images are provided for review. Automated exposure control, iterative reconstruction, and/or weight based adjustment of the mA/kV was utilized to reduce the radiation dose to as low as reasonably achievable. COMPARISON: Left knee radiographs 02/15/2024. HISTORY ORDERING SYSTEM PROVIDED HISTORY: Reason for Exam: Unilateral primary osteoarthritis, left knee FINDINGS: Bones: No evidence of acute fracture or dislocation. No aggressive appearing osseous abnormality or periostitis. Soft Tissue: Small knee joint effusion. No significant fluid collections. Vascular calcifications noted. Joint: There is mild left hip degenerative changes consisting of joint space narrowing, marginal osteophytes, and superolateral acetabular subchondral cystic change. Degenerative changes are noted at the SI joint and pubic symphysis. Moderate lateral femorotibial and mild medial femorotibial joint space narrowing. There is mild to moderate lateral patellofemoral compartment narrowing. Tricompartmental osteophytes. Femorotibial subchondral cystic changes as well as subchondral sclerosis at the lateral femorotibial compartment. Multiple loose bodies are seen within the knee joint measuring up to 1.2 cm. Mild tibiotalar degenerative changes consisting of mild joint space narrowing, marginal osteophyte formation and subchondral cystic change. Achilles and plantar calcaneal insertional enthesopathy. Well corticated ossific densities seen proximal to the navicular bone may represent ossicles versus sequela remote trauma. IMPRESSION: Tricompartmental degenerative in the knee, as above. Multiple loose bodies are identified. Other degenerative changes as detailed in the body of the report. Small knee joint effusion. I have personally reviewed the images of this examination and agree with the resident's findings and interpretation. Interpreted by: Abhi Wilson MD Preliminary Report By: Ricky Hui Electronically signed By Abhi Wilson MD Dictated Date: 09/01/2024 9:58:06 AM Prelim Date: 09/01/2024 1:53:42 PM Sign Date: 09/01/2024 1:53:42 PM Ordering Provider: DAWIT BELTRÁN [facility] 02-15-2024 Hospital Discharge instructions Patient Education 02/15/2024 08:32:48 Knee Sprain Knee Sprain A sprain is an injury to the ligaments or capsule that holds a joint together. There are no broken bones. Most sprains take 3 to 6 weeks to heal. If it a severe sprain where the ligament is completely torn, it can take months to recover. Most knee sprains are treated with a splint, knee immobilizer brace, or elastic wrap for support. Severe sprains may rarely require surgery. Home care Stay off the injured leg as much as possible until you can walk on it without pain. If you have a lot of pain with walking, crutches or a walker may be prescribed. (These can be rented or purchased at many pharmacies and surgical or orthopedic supply stores). Follow your healthcare provider's advice about when to begin putting weight on that leg. Keep your leg elevated to reduce pain and swelling. When sleeping, place a pillow under the injured leg. When sitting, support the injured leg so it is above heart level. This is very important during the first 48 hours. Apply an ice pack over the injured area for 15 to 20 minutes every 3 to 6 hours. You should do this for the first 24 to 48 hours. You can make an ice pack by filling a plastic bag that seals at the top with ice cubes and then wrapping it with a thin towel. Continue to use ice packs for relief of pain and swelling as needed. As the ice melts, be careful to avoid getting your wrap, splint, or cast wet. After 48 hours, apply heat (warm shower or warm bath) for 15 to 20 minutes several times a day, or alternate ice and heat. You can place the ice pack directly over the splint. If you have to wear a araz-bjd-urmt knee brace, you can open it to apply the ice pack, or heat, directly to the knee. Never put ice directly on the skin. Always wrap the ice in a towel or other type of cloth. You may use yfys-dgs-molwmuq pain medicine to control pain, unless another pain medicine was prescribed. If you have chronic liver or kidney disease or ever had a stomach ulcer or gastrointestinal bleeding, talk with your healthcare provider before using these medicines. If you were given a splint, keep it completely dry at all times. Bathe with your splint out of the water, protected with 2 large plastic bags, sealed with rubber bands or tape at the top end. If a fiberglass splint gets wet, you can dry it with a hairspring cutter set to cool. If you have a zuyv-urp-hywb knee brace, you can remove this to bathe, unless told otherwise. Follow-up care Follow up with your doctor as advised. Any X-rays you had today don t show any broken bones, breaks, or fractures. Sometimes fractures don t show up on the first X-ray. Bruises and sprains can sometimes hurt as much as a fracture. These injuries can take time to heal completely. If your symptoms don t improve or they get worse, talk with your doctor. You may need a repeat X-ray. If X-rays were taken, you will be told of any new findings that may affect your care. Call 911 Call 911 if you have: Shortness of breath Chest pain When to seek medical advice Call your healthcare provider right away if any of these occur: The splint or knee immobilizer brace becomes wet or soft The fiberglass cast or splint remains wet for more than 24 hours Pain or swelling increases The injured leg or toes become cold, blue, numb, or tingly 0401-7601 [employer]. [address] [place] [address]. All rights reserved. This information is not intended as a substitute for professional medical care. Always follow your healthcare professional's instructions. Follow Up Care 02/15/2024 07:19:41 With:BASHIR VOGT DO Address: [facility] [address] [place] [phone] When:2-4 days [facility] 02-15-2024 Note Discharge Instructions Thank you for allowing [facility] to assist you with your healthcare needs. The following is important discharge information regarding your hospital visit. Diagnosis from Today's Visit Knee pain-swelling Knee sprain What to Do Next Instructions from Your Care Team Discharge Home Equipment - Ordered -- Crutches, 99 month(s), 02/15/24 8:31:00 EDT Post Acute Orders No qualifying data available. You Need to Schedule the Following Appointments Follow Up with BASHIR VOGT DO When Within 2-4 days Where: [facility] [address] [place] [address] [place] [address] [phone] Allergies NKA Medications Please ask your primary doctor or pharmacist before taking any other medication not listed, including over the counter drugs, herbal medications, vitamins and or supplements as they may interact with your home medications. What How Much When Why Instructions Last Dose New acetaminophen-hydrocodone ([place] 325- 5 mg oral tablet) 2 tab(s) by mouth Every 6 hours as needed for for pain Knee sprain Duration: 3 Days Printed Prescription Unchanged ascorbic acid (Vitamin C 500 mg oral tablet) 1 tab(s) by mouth Once a day Unchanged dicyclomine (dicyclomine 10 mg oral capsule) Unchanged dicyclomine (dicyclomine 10 mg oral capsule) TAKE 1 CAPSULE BY MOUTH TWICE A DAY Unchanged multivitamin (Multivitamin) 1 tab(s) by mouth Every day Unchanged niacin (niacin 50 mg oral tablet) 1 tab(s) by mouth Every day Unchanged omega-3 polyunsaturated fatty acids (Fish Oil 1000 mg oral capsule) 1 cap by mouth Once a day Unchanged tamsulosin (tamsulosin 0.4 mg oral capsule) TAKE 1 CAPSULE BY MOUTH EVERY DAY Unchanged zinc sulfate (Zinc 140 mg (as elemental zinc 50 mg) oral tablet) 1 tab(s) by mouth Once a day Please take this list to your next doctor s visit. Bring all medications you take, including over the counter medications, herbals and other supplements with you to your doctor s visit. Patients and families are reminded to discard old lists and to update any records with all medication providers or retail pharmacies. Medication Leaflets acetaminophen and hydrocodone (a SEET a MIN oh fen and chun RIVERA done) Lortab Elixir, Verdrocet What is the most important information I should know about acetaminophen and hydrocodone? MISUSE OF OPIOID MEDICINE CAN CAUSE ADDICTION, OVERDOSE, OR . Keep the medication in a place where others cannot get to it. Taking opioid medicine during may cause life-threatening withdrawal symptoms in the . Fatal side effects can occur if you use opioid medicine with alcohol, or with other drugs that cause drowsiness or slow your breathing. Stop taking this medicine and call your doctor right away if you have skin redness or a rash that spreads and causes blistering and peeling. What is acetaminophen and hydrocodone? Acetaminophen and hydrocodone is a combination medicine used to relieve moderate to severe pain. Acetaminophen and hydrocodone contains an opioid medicine, and may be habit-forming. Acetaminophen and hydrocodone may also be used for purposes not listed in this medication guide. What should I discuss with my healthcare provider before taking acetaminophen and hydrocodone? You should not use this medicine if you are allergic to acetaminophen or hydrocodone, or if you have: severe asthma or breathing problems; or a blockage in your stomach or intestines. Tell your doctor if you have ever had: breathing problems, sleep apnea (breathing stops during sleep); liver disease; a drug or alcohol addiction; kidney disease; a head injury or seizures; urination problems; or problems with your thyroid, pancreas, or gallbladder. If you use opioid medicine while you are , your baby could become dependent on the drug. This can cause life-threatening withdrawal symptoms in the baby after it is born. Babies born dependent on opioids may need medical treatment for several weeks. Ask a doctor before using opioid medicine if you are . Tell your doctor if you notice severe drowsiness or slow breathing in the nursing baby. How should I take acetaminophen and hydrocodone? Follow all directions on your prescription label. Never take this medicine in larger amounts, or for longer than prescribed. An overdose can damage your liver or cause . Tell your doctor if you feel an increased urge to use more of this medicine. Never share this medicine with another person, especially someone with a history of drug abuse or addiction. MISUSE CAN CAUSE ADDICTION, OVERDOSE, OR . Keep the medicine in a place where others cannot get to it. Selling or giving away this medicine is against the law. Measure liquid medicine carefully. Use the dosing syringe provided, or use a medicine dose-measuring device (not a kitchen spoon). If you need surgery or medical tests, tell the doctor ahead of time that you are using this medicine. You should not stop using this medicine suddenly. Follow your doctor's instructions about tapering your dose. Store at room temperature away from moisture and heat. Keep track of your medicine. You should be aware if anyone is using it improperly or without a prescription. Do not keep leftover opioid medication. Just one dose can cause in someone using this medicine accidentally or improperly. Ask your pharmacist where to locate a drug take-back disposal program. If there is no take-back program, flush the unused medicine down the toilet. What happens if I miss a dose? Since this medicine is used for pain, you are not likely to miss a dose. Skip any missed dose if it is almost time for your next dose. Do not use two doses at one time. What happens if I overdose? Seek emergency medical attention or call the Poison Help line at . An overdose of this medicine can be fatal, especially in a child or other person using the medicine without a prescription. Overdose symptoms may include nausea, vomiting, sweating, severe drowsiness, pinpoint pupils, slow breathing, or no breathing. Your doctor may recommend you get naloxone (a medicine to reverse an opioid overdose) and keep it with you at all times. A person caring for you can give the naloxone if you stop breathing or don't wake up. Your caregiver must still get emergency medical help and may need to perform CPR (cardiopulmonary resuscitation) on you while waiting for help to arrive. Anyone can buy naloxone from a pharmacy or local health department. Make sure any person caring for you knows where you keep naloxone and how to use it. What should I avoid while taking acetaminophen and hydrocodone? Avoid driving or operating machinery until you know how this medicine will affect you. Dizziness or drowsiness can cause falls, accidents, or severe injuries. Do not drink alcohol. Dangerous side effects or could occur. Ask a doctor or pharmacist before using any other medicine that may contain acetaminophen (sometimes abbreviated as APAP). Taking certain medications together can lead to a fatal overdose. What are the possible side effects of acetaminophen and hydrocodone? Get emergency medical help if you have signs of an allergic reaction: hives; difficulty breathing; swelling of your face, lips, tongue, or throat. Opioid medicine can slow or stop your breathing, and may occur. A person caring for you should give naloxone and/or seek emergency medical attention if you have slow breathing with long pauses, blue colored lips, or if you are hard to wake up. In rare cases, acetaminophen may cause a severe skin reaction that can be fatal. This could occur even if you have taken acetaminophen in the past and had no reaction. Stop taking this medicine and call your doctor right away if you have skin redness or a rash that spreads and causes blistering and peeling. Call your doctor at once if you have: noisy breathing, sighing, shallow breathing, breathing that stops; a light-headed feeling, like you might pass out; liver problems--nausea, upper stomach pain, tiredness, loss of appetite, dark urine, raquel-colored stools, jaundice (yellowing of the skin or eyes); low cortisol levels-- nausea, vomiting, loss of appetite, dizziness, worsening tiredness or weakness; o high levels of serotonin in the body--agitation, hallucinations, fever, sweating, shivering, fast heart rate, muscle stiffness, twitching, loss of coordination, nausea, vomiting, diarrhea. Serious breathing problems may be more likely in older adults and in those who are debilitated or have wasting syndrome or chronic breathing disorders. Common side effects include: dizziness, drowsiness, feeling tired; nausea, vomiting, stomach pain; constipation; or headache. This is not a complete list of side effects and others may occur. Call your doctor for medical advice about side effects. You may report side effects to FDA at 3-041-WPD-2601. What other drugs will affect acetaminophen and hydrocodone? You may have breathing problems or withdrawal symptoms if you start or stop taking certain other medicines. Tell your doctor if you also use an antibiotic, antifungal medication, heart or blood pressure medication, seizure medication, or medicine to treat HIV or hepatitis C. Opioid medication can interact with many other drugs and cause dangerous side effects or . Be sure your doctor knows if you also use: cold or allergy medicines, bronchodilator asthma/COPD medication, or a diuretic ('water pill'); medicines for motion sickness, irritable bowel syndrome, or overactive bladder; other opioids--opioid pain medicine or prescription cough medicine; a sedative like Valium--diazepam, alprazolam, lorazepam, Xanax, Klonopin, Versed, and others; drugs that make you sleepy or slow your breathing--a sleeping pill, muscle relaxer, medicine to treat mood disorders or mental illness; drugs that affect serotonin levels in your body--a stimulant, or medicine for depression, Parkinson's disease, migraine headaches, serious infections, or nausea and vomiting. This list is not complete. Other drugs may affect acetaminophen and hydrocodone, including prescription and poqx-pco-cadhosu medicines, vitamins, and herbal products. Not all possible interactions are listed here. Where can I get more information? Your doctor or pharmacist can provide more information about acetaminophen and hydrocodone. Remember, keep this and all other medicines out of the reach of children, never share your medicines with others, and use this medication only for the indication prescribed. Every effort has been made to ensure that the information provided by [employer]. ('[employer]') is accurate, up-to-date, and complete, but no guarantee is made to that effect. Drug information contained herein may be time sensitive. [employer] information has been compiled for use by healthcare practitioners and consumers in the [place] and therefore [employer] does not warrant that uses outside of the [place] are appropriate, unless specifically indicated otherwise. [employer] drug information does not endorse drugs, diagnose patients or recommend therapy. [employer] drug information is an informational resource designed to assist licensed healthcare practitioners in caring for their patients and/or to serve consumers viewing this service as a supplement to, and not a substitute for, the expertise, skill, knowledge and judgment of healthcare practitioners. The absence of a warning for a given drug or drug combination in no way should be construed to indicate that the drug or drug combination is safe, effective or appropriate for any given patient. [employer] does not assume any responsibility for any aspect of healthcare administered with the aid of information [employer] provides. The information contained herein is not intended to cover all possible uses, directions, precautions, warnings, drug interactions, allergic reactions, or adverse effects. If you have questions about the drugs you are taking, check with your doctor, nurse or pharmacist. Copyright 2130-4994 [employer]. Version: 19.. Revision Date: 07/09/2023. Education Materials Knee Sprain A sprain is an injury to the ligaments or capsule that holds a joint together. There are no broken bones. Most sprains take 3 to 6 weeks to heal. If it a severe sprain where the ligament is completely torn, it can take months to recover. Most knee sprains are treated with a splint, knee immobilizer brace, or elastic wrap for support. Severe sprains may rarely require surgery. Home care Stay off the injured leg as much as possible until you can walk on it without pain. If you have a lot of pain with walking, crutches or a walker may be prescribed. (These can be rented or purchased at many pharmacies and surgical or orthopedic supply stores). Follow your healthcare provider's advice about when to begin putting weight on that leg. Keep your leg elevated to reduce pain and swelling. When sleeping, place a pillow under the injured leg. When sitting, support the injured leg so it is above heart level. This is very important during the first 48 hours. Apply an ice pack over the injured area for 15 to 20 minutes every 3 to 6 hours. You should do this for the first 24 to 48 hours. You can make an ice pack by filling a plastic bag that seals at the top with ice cubes and then wrapping it with a thin towel. Continue to use ice packs for relief of pain and swelling as needed. As the ice melts, be careful to avoid getting your wrap, splint, or cast wet. After 48 hours, apply heat (warm shower or warm bath) for 15 to 20 minutes several times a day, or alternate ice and heat. You can place the ice pack directly over the splint. If you have to wear a qzaj-plm-tagz knee brace, you can open it to apply the ice pack, or heat, directly to the knee. Never put ice directly on the skin. Always wrap the ice in a towel or other type of cloth. You may use nkix-ykv-cayqedz pain medicine to control pain, unless another pain medicine was prescribed. If you have chronic liver or kidney disease or ever had a stomach ulcer or gastrointestinal bleeding, talk with your healthcare provider before using these medicines. If you were given a splint, keep it completely dry at all times. Bathe with your splint out of the water, protected with 2 large plastic bags, sealed with rubber bands or tape at the top end. If a fiberglass splint gets wet, you can dry it with a hairspring cutter set to cool. If you have a ofvm-pwr-wfvo knee brace, you can remove this to bathe, unless told otherwise. Follow-up care Follow up with your doctor as advised. Any X-rays you had today don t show any broken bones, breaks, or fractures. Sometimes fractures don t show up on the first X-ray. Bruises and sprains can sometimes hurt as much as a fracture. These injuries can take time to heal completely. If your symptoms don t improve or they get worse, talk with your doctor. You may need a repeat X-ray. If X-rays were taken, you will be told of any new findings that may affect your care. Call 911 Call 911 if you have: Shortness of breath Chest pain When to seek medical advice Call your healthcare provider right away if any of these occur: The splint or knee immobilizer brace becomes wet or soft The fiberglass cast or splint remains wet for more than 24 hours Pain or swelling increases The injured leg or toes become cold, blue, numb, or tingly 7806-1896 The Information [employer]. [address] [place] [address]. All rights reserved. This information is not intended as a substitute for professional medical care. Always follow your healthcare professional's instructions. Additional Information VACCINATE! IT SAVES LIVES! Members of the community who have not yet received the COVID-19 vaccine and would like to receive it can visit one of [facility] vaccine clinics. There are many vaccine clinic locations within the [facility]. For locations and available times, please visit [email or web address] . It is important to note that some COVID mobile vaccine clinics are held outdoors and may be canceled in rainy or stormy conditions. To learn more about pediatric vaccinations (ages 5-11), we invite you to visit the [facility] webpage. [email or web address] [email or web address] To learn more about the COVID-19 vaccine, we invite you to visit the CDC website for a list of frequently asked questions. https://www.cdc.gov/coronavirus/2019 -ncov/vaccines/faq.html [facility] Patient Portal Access Instructions: Stay connected with your healthcare team and access your personal medical information anytime with the [facility] Patient Portal. If you would like a full copy of your medical records please contact the [facility] Medical Records Department Sunday through Sunday between 8a.m. and 4:30p.m. Please follow the directions below to access the portal: 1.Access the email account you provided upon registration to the hospital.2.Look for an invitation email from [facility].3.Open the email and access the invitation link: Accept Invitation to [facility].Fill in the required dos santos to create your account. Sign into [email or web address] with your username and password that you created in the above steps to stay up to date. You can then view a summary of results, a summary of your visits, and the ability to download your summaries to your computer or send the information securely to a physician. Remember that your healthcare information is confidential, so carefully consider who you will allow to register on the [facility] Patient Portal for access to your information. You can also access the [facility] Patient Portal on the [employer]. Simply click on Health Records under Health Data and then click on the [facility] logo. HOW TO SAFELY DISPOSE OF PRESCRIPTION MEDICATIONS Please use one of the following methods to safely dispose of your unused medications. 1.Use a drug disposal kit: the drug disposal pouch allows you to safely discard your old and unused drugs. Ask your nurse to give you one when you are discharged.2.Visit a local take-back location: Many local pharmacies and police departments have programs that collect old and unwanted prescription drugs. Call your local pharmacy or go to http://[employer]/9W1Ad3f to find one close to you.3.Make use of household items: Use cat litter or old coffee grounds to dispose medications if other options are not available. Mix your drugs with these household products, seal them in an airtight container and throw it into the garbage. Call [facility]: [phone] to be sure your drugs can be disposed of in this way. Some medicines may require a different approach.4.Never flush your medications down the toilet. IF YOU HAVE BEEN PRESCRIBED AN OPIOIDS FOR PAIN If you have been prescribed an opioid (such as hydrocodone, oxycodone or morphine), it is critical to understand the possible side effects and risks of opioid pain medications. Even when taken as directed, opioids can have several side effects including: Tolerance, meaning you might need to take more of a medication for the same pain relief. Nausea, vomiting and/or constipation. Sleepiness, dizziness, dry mouth, confusion, depression or itching. Physical dependence, meaning you have withdrawal symptoms when a medication is stopped ? this can develop within a few days. KNOW YOUR RESPONSIBILITIES It is important to know exactly how much and how often to take the opioid pain medications you are prescribed. Never take opioids in higher amounts or more often than prescribed. Do not combine opioids with alcohol or other drugs that cause drowsiness, such as benzodiazepines, also known as benzos, including diazepam and alprazolam, muscle relaxants or sleep aids. Never sell or share prescription opioids. This is illegal. Store opioids in a secure place and out of reach of others (including children, family, friends and visitors). The last page(s) of this document has been signed and retained as a CHART COPY Signatures Patient Education Materials Knee Sprain Medication Leaflets acetaminophen and hydrocodone My discharge plan and instructions have been reviewed and explained to me and IJAK MICHAEL J understand my current condition and have read and understand these discharge instructions. I have received a written copy of the plan/instructions. If I have questions, I am aware that I should contact my doctor. Patient/Production Hand Signature: ___ Date/Time: Relationship to Patient: _ Witness Name/Signature: Date/Time: [facility] 02-15-2024 Note ORIGINAL EXAMINATION: TWO XRAY VIEWS OF THE LEFT KNEE 02/15/2024 7:52 am COMPARISON: None. HISTORY: ORDERING SYSTEM PROVIDED HISTORY: Reason for Exam: pain FINDINGS: The left knee joint spaces appear in anatomic alignment. There is moderate tricompartmental osteoarthritis of the left knee manifested by joint space narrowing and marginal osteophyte formation. No acute fracture, dislocation or radiopaque foreign bodies are identified. Suprapatellar joint effusion is seen on the lateral view. IMPRESSION: No acute osseous abnormality of the left knee. Moderate tricompartmental osteoarthritis of the left knee with a joint effusion. Interpreted by: Abhi Sadny MD Preliminary Report By: Abhi Sandy MD Electronically signed By Abhi Sandy MD Dictated Date: 02/15/2024 7:58:11 AM Prelim Date: 02/15/2024 7:58:50 AM Sign Date: 02/15/2024 7:58:50 AM Ordering Provider: EMMETT MOSS [facility] 01-04-2023 Hospital Discharge instructions Patient Education 01/04/2023 11:23:48 Transurethral Resection of the Prostate, Care After Transurethral Resection of the Prostate, Care After This sheet gives you information about how to care for yourself after your procedure. Your health care provider may also give you more specific instructions. If you have problems or questions, contact your health care provider. What can I expect after the procedure? After the procedure, it is common to have: Mild pain in your lower abdomen. Soreness or mild discomfort in your penis from having the catheter inserted during the procedure. A feeling of urgency when you need to urinate. A small amount of blood in your urine. You may notice some small blood clots in your urine. These are normal. Follow these instructions at home: Medicines Take xkdr-ogm-dwwefqx and prescription medicines only as told by your health care provider. If you were prescribed an antibiotic medicine, take it as told by your health care provider. Do not stop taking the antibiotic even if you start to feel better. Ask your health care provider if the medicine prescribed to you: ?Requires you to avoid driving or using heavy machinery. ?Can cause constipation. You may need to take actions to prevent or treat constipation, such as: ?Take mpmt-dgb-xcrvusf or prescription medicines. ?Eat foods that are high in fiber, such as fresh fruits and vegetables, whole grains, and beans. ?Limit foods that are high in fat and processed sugars, such as fried or sweet foods. Do not drive for 24 hours if you were given a sedative during your procedure. Activity Return to your normal activities as told by your health care provider. Ask your health care provider what activities are safe for you. Do not lift anything that is heavier than 10 lb (4.5 kg), or the limit that you are told, for 3 weeks after the procedure or until your health care provider says that it is safe. Avoid intense physical activity for as long as told by your health care provider. Avoid sitting for a long time without moving. Get up and move around one or more times every few hours. This helps to prevent blood clots. You may increase your physical activity gradually as you start to feel better. Lifestyle Do not drink alcohol for as long as told by your health care provider. This is especially important if you are taking prescription pain medicines. Do not engage in sexual activity until your health care provider says that you can do this. General instructions Do not take baths, swim, or use a hot tub until your health care provider approves. Drink enough fluid to keep your urine pale yellow. Urinate as soon as you feel the need to. Do not try to hold your urine for long periods of time. If your health care provider approves, you may take a stool softener for 2 3 weeks to prevent you from straining to have a bowel movement. Wear compression stockings as told by your health care provider. These stockings help to prevent blood clots and reduce swelling in your legs. Keep all follow-up visits as told by your health care provider. This is important. Contact a health care provider if you have: Difficulty urinating. A fever. Pain that gets worse or does not improve with medicine. Blood in your urine that does not go away after 1 week of resting and drinking more fluids. Swelling in your penis or testicles. Get help right away if: You are unable to urinate. You are having more blood clots in your urine instead of fewer. You have: ?Large blood clots. ?A lot of blood in your urine. ?Pain in your back or lower abdomen. ?Pain or swelling in your legs. ?Chills and you are shaking. ?Difficulty breathing or shortness of breath. Summary After the procedure, it is common to have a small amount of blood in your urine. Avoid heavy lifting and intense physical activity for as long as told by your health care provider. Urinate as soon as you feel the need to. Do not try to hold your urine for long periods of time. Keep all follow-up visits as told by your health care provider. This is important. This information is not intended to replace advice given to you by your health care provider. Make sure you discuss any questions you have with your health care provider. Document Released: 11/05/2006 Document Revised: 02/25/2020 Document Reviewed: 08/06/2019 [employer] Patient Education 2020 [employer]. Follow Up Care 12/28/2022 15:14:20 With:CLEMENTINA JUNIOR MD Address: [address] [place] [id number] When: Unknown Comments:DR. JUNIOR'S OFFICE WILL CALL IN THE NEXT 1-2 DAYS TO SCHEDULE 2 WEEK FOLLOW UP [facility] 01-04-2023 Note Discharge Instructions Thank you for allowing [facility] to assist you with your healthcare needs. The following is important discharge information regarding your hospital visit. Your Care Team BASHIR VOGT DO What to do next Follow Up Appointments Follow Up with CLEMENTINA JUNIOR MD When Why: DR. JUNIOR'S OFFICE WILL CALL IN THE NEXT 1-2 DAYS TO SCHEDULE 2 WEEK FOLLOW UP Where: [address] [place] [address] [id number] The Following Activity and Diet Have Been Ordered for You No qualifying data available. No qualifying data available. The Following Equipment Has Been Ordered for You No qualifying data available. The Following Treatments Have Been Ordered for You Discharge Labs No qualifying data available. Discharge Radiology No qualifying data available. Other Therapies No qualifying data available. Post Acute Orders No qualifying data available. Someone Will Contact You Regarding These Home Health Referrals No home referrals have been ordered for you. No one will call you. Allergies [facility] Medications Please ask your primary doctor or pharmacist before taking any other medication not listed, including over the counter drugs, herbal medications, vitamins and or supplements as they may interact with your home medications. What How Much When Instructions Last Dose New ciprofloxacin (Cipro 500 mg oral tablet) 1 tab(s) by mouth Every 12 hours Duration: 5 Days Pickup at [facility]/pharmacy #[id number] Changed dicyclomine (dicyclomine 10 mg oral capsule) Changed dicyclomine (dicyclomine 10 mg oral capsule) TAKE 1 CAPSULE BY MOUTH TWICE A DAY Unchanged ascorbic acid (Vitamin C 500 mg oral tablet) 1 tab(s) by mouth Once a day Unchanged multivitamin (Multivitamin) 1 tab(s) by mouth Every day Unchanged niacin (niacin 50 mg oral tablet) 1 tab(s) by mouth Every day Unchanged omega-3 polyunsaturated fatty acids (Fish Oil 1000 mg oral capsule) 1 cap by mouth Once a day Unchanged tamsulosin (tamsulosin 0.4 mg oral capsule) TAKE 1 CAPSULE BY MOUTH EVERY DAY Unchanged zinc sulfate (Zinc 140 mg (as elemental zinc 50 mg) oral tablet) 1 tab(s) by mouth Once a day Pharmacy Information [facility]/pharmacy #[id number]: [address] [place], [place] [id number] [phone] What How Much When Comments Stop Taking cephalexin (cephalexin 500 mg oral capsule) 1 cap by mouth Four (4) times a day Duration: 10 Days Please take this list to your next doctor s visit. Bring all medications you take, including over the counter medications, herbals and other supplements with you to your doctor s visit. Patients and families are reminded to discard old lists and to update any records with all medication providers or retail pharmacies. Medication Leaflets ciprofloxacin (oral) (SIP ryan FLOX a sin) Cipro, Proquin XR What is the most important information I should know about ciprofloxacin? Ciprofloxacin can cause serious side effects, including tendon problems, nerve damage, serious mood or behavior changes, or low blood sugar. Stop using this medicine and call your doctor at once if you have: headache, hunger, irritability, numbness, tingling, burning pain, confusion, agitation, paranoia, problems with memory or concentration, thoughts of suicide, or sudden pain or movement problems in any of your joints. In rare cases, ciprofloxacin may cause damage to your aorta, which could lead to dangerous bleeding or . Get emergency medical help if you have severe and constant pain in your chest, stomach, or back. What is ciprofloxacin? Ciprofloxacin is a fluoroquinolone (sduo-q-ZEMJ-o-lone) antibiotic, it is used to treat different types of bacterial infections. It is also used to treat people who have been exposed to anthrax or certain types of plague. Ciprofloxacin extended-release is only approved for use in adults. Fluoroquinolone antibiotics can cause serious or disabling side effects that may not be reversible. Ciprofloxacin should be used only for infections that cannot be treated with a safer antibiotic. Ciprofloxacin may also be used for purposes not listed in this medication guide. What should I discuss with my healthcare provider before taking ciprofloxacin? You should not use ciprofloxacin if you are allergic to it, or if: you also take tizanidine; or you are allergic to other fluoroquinolones (levofloxacin, moxifloxacin, norfloxacin, ofloxacin). Ciprofloxacin may cause swelling or tearing of a tendon (the fiber that connects bones to muscles in the body), especially in the Achilles' tendon of the heel. This can happen during treatment or several months after you stop taking ciprofloxacin. Tendon problems may be more likely in children and older adults, or people who use steroid medicine or have had an organ transplant. Tell your doctor if you have ever had: arthritis or problems with your tendons, bones or joints (especially in children); diabetes, low blood sugar; nerve problems; an aneurysm or blood circulation problems; heart problems, or a heart attack; muscle weakness, myasthenia gravis; liver or kidney disease; a seizure, head injury, or brain tumor; trouble swallowing pills; long QT syndrome (in you or a family member); or low levels of potassium in your blood (hypokalemia). Do not give this medicine to a child without medical advice. It is not known whether this medicine will harm an unborn baby. Tell your doctor if you are . You should not breastfeed while taking ciprofloxacin and for 2 days after your last dose. Ask your doctor about if you take ciprofloxacin for anthrax exposure. How should I take ciprofloxacin? Follow all directions on your prescription label and read all medication guides or instruction sheets. Use the medicine exactly as directed. Take ciprofloxacin at the same time each day, with or without food. Shake the oral suspension (liquid) for 15 seconds before you measure a dose. Use the dosing syringe provided, or use a medicine dose-measuring device (not a kitchen spoon). Do not give ciprofloxacin oral suspension through a feeding tube. Swallow the extended-release tablet whole and do not crush, chew, or break it. Drink plenty of liquids while you are taking ciprofloxacin. Use this medicine for the full prescribed length of time, even if your symptoms quickly improve. Skipping doses can increase your risk of infection that is resistant to medication. Ciprofloxacin will not treat a viral infection such as the flu or a common cold. Do not share ciprofloxacin with another person. Store at room temperature away from moisture and heat. Do not allow the liquid medicine to freeze. Throw away any unused liquid after 14 days. What happens if I miss a dose? If you take regular tablets or oral suspension: Take the medicine as soon as you can, but skip the missed dose if your next dose is due in less than 6 hours. If you take extended-release tablets: Take the medicine as soon as you can, but skip the missed dose if your next dose is due in less than 8 hours. Do not take two doses at one time. What happens if I overdose? Seek emergency medical attention or call the Poison Help line at . What should I avoid while taking ciprofloxacin? Do not take ciprofloxacin with dairy products such as milk or yogurt, or with calcium-fortified juice. You may eat or drink these products with your meals, but do not use them alone when taking ciprofloxacin. Antibiotic medicines can cause diarrhea, which may be a sign of a new infection. If you have diarrhea that is watery or bloody, call your doctor before using anti-diarrhea medicine. Ciprofloxacin could make you sunburn more easily. Avoid sunlight or tanning beds. Wear protective clothing and use sunscreen (SPF 30 or higher) when you are outdoors. Tell your doctor if you have severe burning, redness, itching, rash, or swelling after being in the sun. Avoid driving or hazardous activity until you know how this medicine will affect you. Your reactions could be impaired. What are the possible side effects of ciprofloxacin? Get emergency medical help if you have signs of an allergic reaction (hives, difficult breathing, swelling in your face or throat) or a severe skin reaction (fever, sore throat, burning in your eyes, skin pain, red or purple skin rash that spreads and causes blistering and peeling). Ciprofloxacin can cause serious side effects, including tendon problems, damage to your nerves (which may be permanent), serious mood or behavior changes (after just one dose), or low blood sugar (which can lead to coma). Stop taking this medicine and call your doctor at once if you have: low blood sugar--headache, hunger, irritability, dizziness, nausea, fast heart rate, or feeling shaky; nerve damage symptoms--numbness, tingling, burning pain in your hands, arms, legs, or feet: serious mood or behavior changes--nervousness, confusion, agitation, paranoia, hallucinations, memory problems, trouble concentrating, thoughts of suicide; or signs of tendon rupture--sudden pain, swelling, bruising, tenderness, stiffness, movement problems, or a snapping or popping sound in any of your joints (rest the joint until you receive medical care or instructions). In rare cases, ciprofloxacin may cause damage to your aorta, the main blood artery of the body. This could lead to dangerous bleeding or . Get emergency medical help if you have severe and constant pain in your chest, stomach, or back. Also, stop using ciprofloxacin and call your doctor at once if you have: severe stomach pain, diarrhea that is watery or bloody; fast or pounding heartbeats, fluttering in your chest, shortness of breath, and sudden dizziness (like you might pass out); any skin rash, no matter how mild; muscle weakness, breathing problems; little or no urination; jaundice (yellowing of the skin or eyes); or increased pressure inside the skull--severe headaches, ringing in your ears, dizziness, nausea, vision problems, pain behind your eyes. Common side effects may include: nausea, vomiting, diarrhea, stomach pain; headache; or abnormal liver function tests. This is not a complete list of side effects and others may occur. Call your doctor for medical advice about side effects. You may report side effects to FDA at 1-938-OED-0187. What other drugs will affect ciprofloxacin? Some medicines can make ciprofloxacin much less effective when taken at the same time. If you take any of the following medicines, take your ciprofloxacin dose 2 hours before or 6 hours after you take the other medicine. the ulcer medicine sucralfate, or antacids that contain calcium, magnesium, or aluminum (such as Maalox, Milk of Magnesia, Mylanta, Pepcid Complete, Rolaids, Tums, and others); didanosine (Videx) powder or chewable tablets; vitamin or mineral supplements that contain calcium, iron, magnesium, or zinc. Tell your doctor about all your other medicines, especially: clozapine, cyclosporine, methotrexate, phenytoin, probenecid, ropinirole, sildenafil, or theophylline; a blood thinner (warfarin, Coumadin, Jantoven); heart medication or a diuretic or 'water pill'; oral diabetes medicine; products that contain caffeine; medicine to treat depression or mental illness; steroid medicine (such as prednisone); o NSAIDs (nonsteroidal anti-inflammatory drugs)--aspirin, ibuprofen (Advil, Motrin), naproxen (Aleve), celecoxib, diclofenac, indomethacin, meloxicam, and others; This list is not complete. Other drugs may affect ciprofloxacin, including prescription and uqsp-xbv-qvbbwdc medicines, vitamins, and herbal products. Not all possible drug interactions are listed here. Where can I get more information? Your pharmacist can provide more information about ciprofloxacin. Remember, keep this and all other medicines out of the reach of children, never share your medicines with others, and use this medication only for the indication prescribed. Every effort has been made to ensure that the information provided by [employer]. ('[employer]') is accurate, up-to-date, and complete, but no guarantee is made to that effect. Drug information contained herein may be time sensitive. [employer] information has been compiled for use by healthcare practitioners and consumers in the [place] and therefore [employer] does not warrant that uses outside of the [place] are appropriate, unless specifically indicated otherwise. [employer] drug information does not endorse drugs, diagnose patients or recommend therapy. [employer] drug information is an informational resource designed to assist licensed healthcare practitioners in caring for their patients and/or to serve consumers viewing this service as a supplement to, and not a substitute for, the expertise, skill, knowledge and judgment of healthcare practitioners. The absence of a warning for a given drug or drug combination in no way should be construed to indicate that the drug or drug combination is safe, effective or appropriate for any given patient. [employer] does not assume any responsibility for any aspect of healthcare administered with the aid of information [employer] provides. The information contained herein is not intended to cover all possible uses, directions, precautions, warnings, drug interactions, allergic reactions, or adverse effects. If you have questions about the drugs you are taking, check with your doctor, nurse or pharmacist. Copyright 2260-3705 [employer]. Version: 23.01. Revision Date: 06/02/2020. Education Materials Transurethral Resection of the Prostate, Care After This sheet gives you information about how to care for yourself after your procedure. Your health care provider may also give you more specific instructions. If you have problems or questions, contact your health care provider. What can I expect after the procedure? After the procedure, it is common to have: Mild pain in your lower abdomen. Soreness or mild discomfort in your penis from having the catheter inserted during the procedure. A feeling of urgency when you need to urinate. A small amount of blood in your urine. You may notice some small blood clots in your urine. These are normal. Follow these instructions at home: Medicines Take uwza-heo-motczyf and prescription medicines only as told by your health care provider. If you were prescribed an antibiotic medicine, take it as told by your health care provider. Do not stop taking the antibiotic even if you start to feel better. Ask your health care provider if the medicine prescribed to you: ? Requires you to avoid driving or using heavy machinery. ? Can cause constipation. You may need to take actions to prevent or treat constipation, such as: ? Take ptvn-zuw-ihhdmnf or prescription medicines. ? Eat foods that are high in fiber, such as fresh fruits and vegetables, whole grains, and beans. ? Limit foods that are high in fat and processed sugars, such as fried or sweet foods. Do not drive for 24 hours if you were given a sedative during your procedure. Activity Return to your normal activities as told by your health care provider. Ask your health care provider what activities are safe for you. Do not lift anything that is heavier than 10 lb (4.5 kg), or the limit that you are told, for 3 weeks after the procedure or until your health care provider says that it is safe. Avoid intense physical activity for as long as told by your health care provider. Avoid sitting for a long time without moving. Get up and move around one or more times every few hours. This helps to prevent blood clots. You may increase your physical activity gradually as you start to feel better. Lifestyle Do not drink alcohol for as long as told by your health care provider. This is especially important if you are taking prescription pain medicines. Do not engage in sexual activity until your health care provider says that you can do this. General instructions Do not take baths, swim, or use a hot tub until your health care provider approves. Drink enough fluid to keep your urine pale yellow. Urinate as soon as you feel the need to. Do not try to hold your urine for long periods of time. If your health care provider approves, you may take a stool softener for 2 3 weeks to prevent you from straining to have a bowel movement. Wear compression stockings as told by your health care provider. These stockings help to prevent blood clots and reduce swelling in your legs. Keep all follow-up visits as told by your health care provider. This is important. Contact a health care provider if you have: Difficulty urinating. A fever. Pain that gets worse or does not improve with medicine. Blood in your urine that does not go away after 1 week of resting and drinking more fluids. Swelling in your penis or testicles. Get help right away if: You are unable to urinate. You are having more blood clots in your urine instead of fewer. You have: ? Large blood clots. ? A lot of blood in your urine. ? Pain in your back or lower abdomen. ? Pain or swelling in your legs. ? Chills and you are shaking. ? Difficulty breathing or shortness of breath. Summary After the procedure, it is common to have a small amount of blood in your urine. Avoid heavy lifting and intense physical activity for as long as told by your health care provider. Urinate as soon as you feel the need to. Do not try to hold your urine for long periods of time. Keep all follow-up visits as told by your health care provider. This is important. This information is not intended to replace advice given to you by your health care provider. Make sure you discuss any questions you have with your health care provider. Document Released: 11/05/2006 Document Revised: 02/25/2020 Document Reviewed: 08/06/2019 ElseOgone Patient Education 2020 [employer] Additional Information VACCINATE! IT SAVES LIVES! Members of the community who have not yet received the COVID-19 vaccine and would like to receive it can visit one of [facility] vaccine clinics. There are many vaccine clinic locations within the [facility]. For locations and available times, please visit [email or web address] It is important to note that some COVID mobile vaccine clinics are held outdoors and may be canceled in rainy or stormy conditions. To learn more about pediatric vaccinations (ages 5-11), we invite you to visit the [facility] webpage. [email or web address] [email or web address] To learn more about the COVID-19 vaccine, we invite you to visit the CDC website for a list of frequently asked questions. https://www.cdc.gov/coronavirus/2019 -ncov/vaccines/faq.html [facility] Patient Portal Access Instructions: Stay connected with your healthcare team and access your personal medical information anytime with the [facility] Patient Portal.If you would like a full copy of your medical records, please contact the [facility] Medical Records Department, Sunday through Sunday between 8a.m. and 4:30p.m. Please follow the directions below to access the portal: 1.Access the email account you provided upon registration to the [facility].2.Look for an invitation email from [facility].3.Open the email and access the invitation link: Accept Invitation to [facility]4.Fill in the required dos santos to create your account. Sign into [email or web address].[employer] with your username and password that you created in the above steps to stay up to date. You can then view a summary of results, a summary of your visits, and the ability to download your summaries to your computer or send the information securely to a physician. Remember that your healthcare information is confidential, so carefully consider who you will allow to register on the [facility] Patient Portal for access to your information. You can also access the [facility] Patient Portal on the [employer] parisa. Simply click on Health Records under Health Data and then click on the HistoryFile logo. HOW TO SAFELY DISPOSE OF PRESCRIPTION MEDICATIONS Please use one of the following methods to safely dispose of your unused medications. 1.Use a drug disposal kit: the drug disposal pouch allows you to safely discard your old and unused drugs. Ask your nurse to give you one when you are discharged.2.Visit a local take-back location: Many local pharmacies and police departments have programs that collect old and unwanted prescription drugs. Call your local pharmacy or go to http://bit.[employer]/0Y8Tt5v to find one close to you.3.Make use of household items: Use cat litter or old coffee grounds to dispose medications if other options are not available. Mix your drugs with these household products, seal them in an airtight container and throw it into the garbage. Call [facility]: [phone] to be sure your drugs can be disposed of in this way. Some medicines may require a different approach.4.Never flush your medications down the toilet. IF YOU HAVE BEEN PRESCRIBED AN OPIOID FOR PAIN If you have been prescribed an opioid (such as hydrocodone, oxycodone or morphine), it is critical to understand the possible side effects and risks of opioid pain medications. Even when taken as directed, opioids can have several side effects including: Tolerance, meaning you might need to take more of a medication for the same pain relief. Nausea, vomiting and/or constipation. Sleepiness, dizziness, dry mouth, confusion, depression or itching. Physical dependence, meaning you have withdrawal symptoms when a medication is stopped, can develop within a few days. KNOW YOUR RESPONSIBILITIES It is important to know exactly how much and how often to take the opioid pain medications you are prescribed. Never take opioids in higher amounts or more often than prescribed. Do not combine opioids with alcohol or other drugs that cause drowsiness, such as benzodiazepines, also known as benzos, including diazepam and alprazolam, muscle relaxants or sleep aids. Never sell or share prescription opioids. This is illegal. Store opioids in a secure place and out of reach of others (including children, family, friends and visitors). The last page of this document has been signed and retained as a CHART COPY. Signatures Patient Education Materials Transurethral Resection of the Prostate, Care After Medication Leaflets ciprofloxacin (oral) My discharge plan and instructions have been reviewed and explained to me and IJAK MICHAEL J understand my current condition and have read and understand these discharge instructions. I have received a written copy of the plan/instructions. If I have questions, I am aware that I should contact my doctor. Patient/Production Hand Signature: ___ Date/Time: Relationship to Patient: _ Witness Name/Signature: Date/Time: [facility] 01-04-2023 Urology Progress note Subjective status post transurethral resection of the prostate, Rojo catheter out if the patient able to urinate and go today home without a catheter Objective Vitals and Measurements T: 36.7 C (Oral) TMIN: 35.9 C (Temporal Artery) TMAX: 36.7 C (Oral) HR: 54(Apical) RR: 16 BP: 127/86 SpO2: 96% HT: 188 cm WT: 101 kg BMI: 28.58 Intake and Output 7AM Yesterday to 7AM Today Intake and Output (Last 24 hours) Intake Administration Information 5156.67 Output Urine Voided 5400.00 Intra-Op EBL 5.00 Total Summary Total Intake 5156.67 Total Output 5405.00 Fluid Balance -248.33 Physical Exam Weight Dosing Weight: 101 kg (01/03/23) Dosing Weight: 101 kg (01/03/23) Medications Medications (7) Active Scheduled: (2) dicyclomine 10 mg capsule 10 mg 1 cap(s), Oral, BID famotidine 20 mg/2 mL vial 20 mg 2 mL, IV Push, q12h Continuous: (1) Lactated Ringers 1,000 mL 1,000 mL, Intravenous, 100 mL/hr PRN: (4) acetaminophen 325 mg Tablet 650 mg 2 tab(s), Oral, q4h acetaminophen-HYDROcodone 325-5 mg tablet 1 tab(s), Oral, q4h morphine 2 mg/mL 1 mL syringe 1 mg 0.5 mL, IV Push, q1h ondansetron 2 mg/ 1 mL 2 mL INJ 4 mg 2 mL, IV Push, q8h Lab Results No 36 Hour Lab Data EKG No qualifying data available. Assessment/Plan Orders: acetaminophen, Start: 01/03/23 16:36:00 EST, Dose = 650 mg, = 2 tab(s), Oral, q4h, PRN, Pain, scale 1-3, 01/03/23 16:36:00 EST acetaminophen-hydrocodone, Start: 01/03/23 16:36:00 EST, Dose = 1 tab(s), Tab, Oral, q4h, PRN, Pain, scale 4-6, 01/03/23 16:36:00 EST ciprofloxacin, Dose : 500 mg = 1 tab(s), Oral, q12h, X 5 day(s), # 10 tab(s), 0 Refill(s), 01/08/23 15:01:00 EST, Pharmacy: [facility]/pharmacy #[id number], 188, cm, 01/03/23 12:57:00 EST, Height, 101 dicyclomine, 0 Refill(s) dicyclomine, Start: 01/03/23 21:00:00 EST, Dose = 10 mg, = 1 cap(s), Oral, BID, 0, 01/03/23 15:02:00 EST famotidine, Start: 01/03/23 21:00:00 EST, Dose = 20 mg, = 2 mL, IV Push, q12h, 0, 01/03/23 16:36:00 EST Lactated Ringers Infusion 1,000 mL, Start: 01/03/23 16:36:00 EST, Rate: 100 mL/hr, 01/03/23 16:36:00 EST morphine, Start: 01/03/23 16:36:00 EST, Dose = 1 mg, = 0.5 mL, IV Push, q1h, PRN, Pain, scale 4-10, non cardiac pain, 01/03/23 16:36:00 EST ondansetron, Start: 01/03/23 16:36:00 EST, Dose = 4 mg, = 2 mL, IV Push, q8h, PRN, Nausea, 01/03/23 16:36:00 EST Admit to Inpatient Ambulate Ambulate Diet Order Incentive Spirometer IV Catheter Insertion/Care IV Catheter Insertion/Care Pathology Tissue Request Prn Adapter Pulse Oximeter - Intermittent Sequential Compression Device Application Up to Chair Urinary Catheter Insertion/Care Urinary Catheter Insertion/Care Vital Signs Digitally Signed by CLEMENTINA JUNIOR MD on 01/04/2023 07:05 AM [facility] 01-03-2023 Note Date of Service January 03, 2023 History and Physical Update I have examined the patient; reviewed the History and Physical and there are no changes to the History and Physical unless noted below. History and Physical This is a 67-year-old male with a very large prostate who presents for transurethral resection of the prostate because of a urinary retention plan to resect the prostate today he will stay overnight with a Rojo catheter for continuous irrigation and tomorrow get the catheter out for voiding trial Digitally Signed by CLEMENTINA JUNIOR MD on 01/03/2023 03:03 PM [facility] 01-03-2023 Anesthesiology Consult note Patient: VINCENZO BENEDICT Age: 67 years Sex: Male : 1955 Associated Diagnoses: None Author: JEREMY CRUM Preoperative Information Time of last food or liquid consumption: 01/03/2023 00:00:00 Anesthesia history Patient's history: negative. Family's history: negative. Review of Systems Ear/Nose/Mouth/Throat: Negative. Respiratory: Sleep apnea. Cardiovascular: Negative. Gastrointestinal: obese. Genitourinary: Negative, BPH. Endocrine: Negative. Musculoskeletal: Negative, arthritis. Integumentary: Negative. Neurologic: Negative. Health Status Allergies: Allergic Reactions (Selected) NKA, Allergies (1) ActiveReaction NKANone Documented Current medications: (Selected) Inpatient Medications Ordered LR 1000 mL: 20 mL/hr, Intravenous NS 1000 mL: 75 mL/hr, Intravenous, Stop: 01/04/23 17:59:00 EST Zofran ( PACU ): 4 mg, 2 mL, IV Push, AsDirected, PRN: Nausea/Vomiting morphine ( PACU ): 2 mg, 1 mL, IV Push, q5min, PRN: Pain, scale 4-6 Documented Medications Documented Fish Oil 1000 mg oral capsule: 1,000 mg, 1 cap(s), Oral, qDay, 90 cap(s), 0 Refill(s) Multivitamin: 1 tab(s), Oral, Daily, 0 Refill(s) Vitamin C 500 mg oral tablet: 500 mg, 1 tab(s), Oral, qDay, 30 tab(s), 0 Refill(s) Zinc 140 mg (as elemental zinc 50 mg) oral tablet: 140 mg, 1 tab(s), Oral, qDay, 90 tab(s), 0 Refill(s) cephalexin 500 mg oral capsule: 500 mg, 1 cap(s), Oral, QID, for 10 day(s), 40 cap(s), 0 Refill(s) dicyclomine 10 mg oral capsule: TAKE 1 CAPSULE BY MOUTH TWICE A DAY niacin 50 mg oral tablet: 50 mg, 1 tab(s), Oral, Daily, 0 Refill(s) tamsulosin 0.4 mg oral capsule: TAKE 1 CAPSULE BY MOUTH EVERY DAY, Medications (4) Active Scheduled: (0) Continuous: (2) Lactated Ringers Infusion 1000 mL 1,000 mL, Intravenous, 20 mL/hr NS (0.9% nacl) 1000 mL 1,000 mL, Intravenous, 75 mL/hr PRN: (2) morphine 2 mg/mL 1 mL syringe 2 mg 1 mL, IV Push, q5min ondansetron 2 mg/ 1 mL 2 mL INJ 4 mg 2 mL, IV Push, AsDirected Problem list: Active Problems (2) BPH (benign prostatic hyperplasia) Sleep apnea Histories Past Medical History: No active or resolved past medical history items have been selected or recorded. Family History: Cancer Sister Procedure history: Back ([id number]). Social History Social & Psychosocial Habits Alcohol 02/27/2021 Use: Past Substance Abuse 02/27/2021 Use: Past Tobacco 02/27/2021 Tobacco Use: Never (less than 100 in l Home/Environment 01/02/2023 Domestic Concerns None Living situation: Home/Independent Nutrition/Health 01/03/2023 Type of diet: Regular Appetite Excellent Eating Difficulties None . Physical Examination Vital Signs 01/03/2023 13:45 EST Heart Rate Monitored 67 bpm bpm Respiratory Rate - Anes 17 br/min br/min Systolic Blood Pressure Non-Invasive 109 mmHg mmHg Diastolic Blood Pressure Non-Invasive 65 mmHg mmHg 01/03/2023 13:40 EST Heart Rate Monitored 67 bpm bpm Respiratory Rate - Anes 12 br/min br/min Systolic Blood Pressure Non-Invasive 143 mmHg mmHg Diastolic Blood Pressure Non-Invasive 58 mmHg mmHg 01/03/2023 13:38 EST Systolic Blood Pressure Non-Invasive 148 mmHg mmHg Diastolic Blood Pressure Non-Invasive 83 mmHg mmHg 01/03/2023 12:53 EST Temperature Temporal Artery 36.4 DegC Peripheral Pulse Rate 79 bpm Respiratory Rate 19 br/min Systolic Blood Pressure Non-Invasive 143 mmHg HI Diastolic Blood Pressure Non-Invasive 88 mmHg 01/02/2023 8:09 EST Peripheral Pulse Rate 67 bpm Systolic Blood Pressure Non-Invasive 132 mmHg Diastolic Blood Pressure Non-Invasive 78 mmHg Blood Pressure Method Manual Blood Pressure Location Right arm Blood Pressure Cuff Size Large Vital Signs(last 24 hrs) Last Charted Heart Rate [id number] bpm (JAN 03 13:45) Resp Rate 19 br/min (JAN 03 12:53) GQJ122 mmHg (JAN 03 13:45) DBP65 mmHg (JAN 03 13:45) Measurements from flowsheet : Measurements 01/03/2023 12:53 EST Height 188 cm Admission Weight 101 kg [place] Body Weight 82.24 kg Admission Body Mass Index 28.58 m2 01/03/2023 12:48 EST Body Mass Index In Error kg/m2 (In Error) 01/02/2023 8:09 EST Height 188 cm Admission Weight 101 kg Weight Method Stated [place] Body Weight 82.24 kg Body Mass Index Date\Time Correction (In Error) Pain assessment: Pain Assessment 01/03/2023 12:53 EST Primary Pain Intensity 0 Pain Scale Type 0-10 Pain scale . General: Alert and oriented. Airway: Normal temporomandibular joint mobility. Mallampati classification: II (soft palate, fauces, uvula visible). Head: Normocephalic. Dentition Evaluation: Own teeth. Neck: Supple. Respiratory: Lungs are clear to auscultation. Cardiovascular: Normal rate. Heart Sounds: Normal. Gastrointestinal: Soft. Musculoskeletal Normal range of motion. Integumentary: Intact. Neurologic: Alert, Oriented. Review / Management Results review: No qualifying data available , Lab results 01/03/2023 13:52 EST SN - GCD - ASA Class 3 01/03/2023 13:52 EST SN - Cul - Culture Type Tissue in Formalin SN - Cul - Kind Specimen 01/03/2023 13:51 EST SN - TDC - Device Type CATH 22F 30CC 3-WAY LATEX FREE [id number] SN - TDC - Location BLADDER SN - TDC - DC'd at End of Case No 01/03/2023 13:51 EST SN - Proc - Anesthesia Type General SN - Proc - Actual Procedure TRANSURETHRAL RESECTION OF PROSTATE 01/03/2023 13:50 EST SN - Irl - Irrigant Normal Saline 01/03/2023 13:50 EST SN - SP - Prep Agents Betadine Solution SN - SP - HR - Method N/A 01/03/2023 13:50 EST SN - CTm - Surgery Start 01/03/2023 13:49 01/03/2023 13:47 EST SN - PP - Body Position Lithotomy Cysto Standard Intra-op 01/03/2023 13:46 EST SN - CAt - Case Attendee SN - CAt - Case Attendee SN - CAt - Role Performed Assistant Surveyor 01/03/2023 13:45 EST Heart Rate Monitored 67 bpm bpm Respiratory Rate - Anes 17 br/min br/min Systolic Blood Pressure Non-Invasive 109 mmHg mmHg Diastolic Blood Pressure Non-Invasive 65 mmHg mmHg Oxygen Saturation 99.4 % % 01/03/2023 13:40 EST SN - GCD - Post-operative Diagnosis BENIGN PROSTATIC HYPERPLASIA WITHOUT LOWER URINARY TRACT SYMPTOMS, OTHER RETENTION OF URINE SN - GCD - Case Level Level 3 01/03/2023 13:40 EST SN - PTCare - Anti-thromboembolism Aminta Sequential Compression Device (SCD) 01/03/2023 13:40 EST Heart Rate Monitored 67 bpm bpm Respiratory Rate - Anes 12 br/min br/min Systolic Blood Pressure Non-Invasive 143 mmHg mmHg Diastolic Blood Pressure Non-Invasive 58 mmHg mmHg Oxygen Saturation 93.5 % % 01/03/2023 13:39 EST SN - Assess - LOC Alert, Awake SN - Assess - Orientation Oriented X 3 SN - Assess - Post-op Skin Integrity Intact/Dry 01/03/2023 13:38 EST Systolic Blood Pressure Non-Invasive 148 mmHg mmHg Diastolic Blood Pressure Non-Invasive 83 mmHg mmHg 01/03/2023 13:37 EST cefazolin 2 gram(s) gram(s) Sodium Chloride 0.9% 100 mL mL 01/03/2023 13:34 EST SN - CAt - Case Attendee SN - CAt - Case Attendee SN - CAt - Case Attendee SN - CAt - Case Attendee SN - CAt - Case Attendee SN - CAt - Case Attendee SN - CAt - Case Attendee SN - CAt - Case Attendee SN - CAt - Case Attendee SN - CAt - Case Attendee SN - CAt - Role Performed Primary Surgeon SN - CAt - Role Performed PANEL MONITOR SN - CAt - Role Performed Black [place] Paver Operator 1 SN - CAt - Role Performed Scrub 1 SN - CAt - Role Performed E M Assembler 1 01/03/2023 13:03 EST SN - Preop - CTm Pt in SDS Room 01/03/2023 12:36 SN - Preop - CTm Pt Ready for OR/Proced 01/03/2023 13:03 01/03/2023 13:02 EST Hand Left 01/03/2023 20 gauge Peripheral IV Activity: Insert new site Peripheral IV Dressing Condition: Clean, Dry, Intact Peripheral IV Dressing Activity: Applied Peripheral IV Line Status/Patency: Flushes easily Peripheral IV Site Condition: No complications Peripheral IV Equipment: Extension set Peripheral IV Number of Attempts: 1 Sodium Chloride 0.9% Begin Bag 1,000 mL mL 01/03/2023 12:53 EST Height 188 cm Admission Weight 101 kg [place] Body Weight 82.24 kg Admission Body Mass Index 28.58 m2 Temperature Temporal Artery 36.4 DegC Peripheral Pulse Rate 79 bpm Respiratory Rate 19 br/min Systolic Blood Pressure Non-Invasive 143 mmHg HI Diastolic Blood Pressure Non-Invasive 88 mmHg Primary Pain Intensity 0 Pain Scale Type 0-10 Pain scale Heart Rhythm Regular Oxygen Saturation 97 % Abdomen Description Non-distended, Symmetric Abdomen Palpation Non-Tender Bowel Sounds All Quadrants Present Urinary Elimination Devices Indwelling catheter Skin Temperature Warm Skin Description Normal for ethnicity Skin Integrity Intact Characteristics of Speech Clear Level of Consciousness Alert Strength All Extremities Strong Tone All Extremities Normal Sensation All Extremities Intact Affect/Behavior Appropriate, Calm, Cooperative Orientation Oriented x 4 Allergies Yes Consent Form Signed Yes Patient Dressed In Hospital gown History & Physical On Chart Yes Activity Status ADL Awake, Resting NPO Status Maintained Standard Safety ID band on, Call device within reach, Bed in low position, Wheels locked, Upper/Half-Length side-rails up, personal items within reach, Visitor at bedside, Safety level maintained Patient ID Band on and Verified Yes Implants Verified Yes Pacemaker/AICD Verified Yes Blood Consent Signed Yes Last Fluid Intake 01/02/2023 20:00 Last Food Intake 01/02/2023 20:00 01/03/2023 12:52 EST Belongings At Bedside Pants, Shirt, Shoes, Socks, Undergarments 01/03/2023 12:48 EST Body Mass Index In Error kg/m2 (In Error) Infectious Disease Symptoms Patient states no symptoms Safety Brochure Information Reviewed Unable to complete [facility] Video Viewed No Teaching Evaluation Verbalizes/Nonverbally indicates understanding Admission Note-Nursing Same Day Patient History (Modified) 01/03/2023 7:43 EST CSummary CSUMMARY 01/02/2023 8:27 EST Electrocardiogram [AOH] - CV Signed 01/02/2023 8:09 EST Designated Person #1 We May Share ALDAIR BENEDICT [phone] (Modified) Designated Person #1 Relationship Spouse Privacy Restrictions Requested None Height 188 cm Admission Weight 101 kg Weight Method Stated [place] Body Weight 82.24 kg Body Mass Index Date\Time Correction (In Error) Peripheral Pulse Rate 67 bpm Systolic Blood Pressure Non-Invasive 132 mmHg Diastolic Blood Pressure Non-Invasive 78 mmHg Blood Pressure Method Manual Blood Pressure Location Right arm Blood Pressure Cuff Size Large Oxygen Saturation 94 % Status N/A Sensory Deficits None Sleep Apnea Age Yes Sleep Apnea Gender Yes Diagnosed With Sleep Apnea Yes Advanced Directives No - refuses information Infectious Disease Recent Exposure No Alcohol and Drug Use No Employee of Institutional Living No Health Care Employee No History of Exposure to TB No History of Positive Chest X-Ray for TB No History of Positive TB Skin Test No Homeless No Known Immunosuppression No Recent Immigrant No Resident of Institutional Living No Bloody Sputum No Fatigue No Fever No Loss of Appetite No Night Sweats No Persistent Cough > 3 Weeks No Weight Loss No Patient Aware Date/Time Of Surgery Yes Previous Surgery At This Facility No Pre-Op Patient Education NPO after midnight, No jewelry, Responsible Democrat, Aware of surgery location, Pre-op education done, No ordered medications, SSI prevention handout given SN - Preprocedure Comments Spoke with patient, Verbalizes/Nonverbally indicates understanding Anesthesia Evaluation Date/Time 01/02/2023 8:38 Anesthesia Evaluation Performed By JEREMY CRUM DIRECTOR SOCIAL WELFARE-PANEL MONITOR Anesthesia Evaluation Result Approved Barriers to Learning None evident Teaching Method Explanation Preferred Written Language [place] Citizen Preferred Spoken Language [place] Citizen Information Given by Patient Patient's Current Physicians Patient's Current Physicians Discharge To, Anticipated Home independently Prev Test Positive/Diagnosis w/COVID-19 Yes Previous COVID-19 Positive Date 05/2021 Current Quarantine/Isolated any Illness No Any Contact with Sick Animals/Birds No Traveled Anywhere in Last 30 Days No Lost Weight Unintentionally Recently No Eat Poorly Due to Decreased Appetite No Total MST Score 0 N/A Personal Devices, Patient Valuables Glasses Anesthesia/Transfusions Prior anesthesia Admission Note-Nursing Date\Time Correction . Assessment and Plan [place] [employer] Anesthesiologists (ASA) physical status classification: Class III. Anesthetic Preoperative Plan Premedication: intravenous. Anesthetic technique: General. Induction: intravenously. Maintenance airway: Laryngeal mask airway. Postoperative pain management: Per surgeon. Risks discussed: nausea, vomiting, sore throat. Informed consent: signed by patient. Digitally Signed by RADAMES JEREMYWALKER ENCARNACION on 01/03/2023 01:56 PM [facility] 12-22-2022 Discharge summary Note Date/Time December 22, 2022 9:03pm [facility] Medical Records Department [address] [place] [address] Emergency Department Summary 12/22/22 MR#: [id number] Acct: [id number] Name: VINCENZO BENEDICT Rep #:[id number] : 1955 67 From: Giuseppe Hinkle MD PCP: Dr. Bashir Vogt, DO Status:RE G ER Location: ED HPI History of Present Illness Chief Complaint: Complaint Informant: patient, spouse/S.O. and family Narrative Narrative: Patient presents with urinary retention. He states ever since October he has been having to go to the bathroom more frequently. He goes less volume. But hehas never had pain or inability to go. He does get up at night to go. He had acatheter once before but this was because he had back surgery and not due to enlarged prostate. He was seen recently by his physician. He was told he has enlarged prostate. It sounds like they did a PSA. They started him on tamsulosin. I did review his outpatient note by Dr. Vogt. There was an elevated PSA and they were going to have him follow-up with urology. The patient actually has anappointment with Dr. Junior this . He came in today because he could not urinate at all. Catheter has been placed in his symptoms of lower abdominal/pelvic pressure are completely resolved. [facility] Medical History Arthritis Back pain CPAP (continuous positive airway pressure) dependence History of edema History of pain when walking History of rheumatic fever History of steroid therapy Hyperlipemia Kidney stone Leg cramps Non-smoker Rheumatoid arthritis Sleep apnea Wears glasses Home Medications glucosamine HCl 750 mg tablet 750 mg PO QDAY 05/30/18 [History Last Taken Unknown] multivitamin (Daily Multi-Vitamin tablet) 1 tab PO DAILY 04/20/21 [History Last Taken Unknown] ibuprofen 200 mg tablet 400 mg PO TID-QID PRN cream 12/22/21 [History Last Taken Unknown] niacin 50 mg tablet 50 mg PO DAILY 11/09/21 [History Last Taken Unknown] ascorbic acid (vitamin C) 500 mg tablet (Vitamin C) 500 mg PO DAILY 12/27/21 [History Last Taken Unknown] gabapentin 100 mg capsule 100 mg PO BID 12/27/21 [History Last Taken 01/10/22] cholecalciferol (vitamin D3) 50 mcg (2,000 unit) capsule 50 mcg PO DAILY 01/04/22 [History Last Taken Unknown] zinc gluconate 100 mg tablet PO 01/04/22 [History Last Taken Unknown] dicyclomine 10 mg capsule 10 mg PO BID #30 caps 12/13/22 [Rx Last Taken Unknown] tamsulosin 0.4 mg capsule 0.4 mg PO DAILY #90 caps 12/13/22 [Rx Last Taken Unknown] cephalexin 500 mg capsule 500 mg PO TID 10 days #30 CAPSULES 12/22/22 [Rx Last Taken Unknown] Allergy/AdvReac Type Severity Reaction Status Date / Time No Known Allergies Allergy Verified 12/22/22 17:43 Family History Father Heart disease CVA (cerebral vascular accident) Alcoholism Mother Heart disease Surgical History History of back surgery History of hemorrhoidectomy Hx of colonoscopy Social History Smoking Status: Never smoker alcohol intake: former year quit: 1983 substance use type: former substance user Date of last use: 1983 caffeine: Yes what type of physical activity do you participate in: other details: yard work seatbelt use: always ROS ROS ED Constitutional Constitutional ED: Denies chills, fever(s), subjective or sweats ENT ENT ED: Denies rhinorrhea Cardiovascular Cardiovascular: Denies chest pain or palpitations Respiratory/Chest Respiratory/Chest: Denies cough or dyspnea Gastrointestinal Gastrointestinal: Reports abdominal pain; Denies nausea or vomiting Genitourinary Genitourinary ED: Reports urinary frequency and other Details: See HPI Musculoskeletal Musculoskeletal: Denies back pain Neurologic Neurologic: Denies paresthesias or weakness Hematologic/Lymphatic Hematologic/Lymphatic: Denies easy bleeding or easy bruising EXAM Physical Exam Narrative Exam Narrative: Patient awake alert no acute distress. He has a catheter in at this time that has drained well. HEENT shows no trauma. Mucous membranes are moist Eyes show no icterus. Neck shows no JVD Lungs are clear bilaterally Heart is regular. Peripheral pulses are equal. Abdomen is soft and no tenderness at this time. I had been in a critical patient and did not feel his abdomen prior to the catheter placement though. no CVA tenderness or suprapubic tenderness or fullness now. He has a catheter in place. It is draining well. He has yellowish urine with no sign ofblood. Skin shows no rash pallor or diaphoresis. Const Vital Signs: 12/22/22 17:41 Temperature 97.8 F Temperature Source Temporal Pulse Rate 90 Respiratory Rate 16 Blood Pressure 137/93 H Blood Pressure Mean 107 Pulse Ox 98 Oxygen Delivery Method Room Air MDM MDM MDM Narrative Medical decision making narrative: Patient already has follow-up with urology. He has known BPH and they just started his tamsulosin. I will have him continue this. We will add antibiotics. He has no allergies. His symptoms of pressure have resolved with the catheter. His urine shows some slightly cloudy urine with positive nitrites leukocyte Estrace and greater than 100 white cells with 2+ bacteria. This is consistent with a UTI. I think it is more likely that the ongoing obstruction has allowed a UTI to develop due to poor emptying. Patient otherwise feels fine though. Hehas been eating and drinking with no fevers or chills. He is asymptomatic now. I do not think blood work will be needed. I do not think he needs admission forUTI. He is now decompressed and we will get him started on antibiotics. I willstart him on a dose here. He will call his urologist Sunday to notify them thathe had a catheter placed on Sunday evening. They can decide if they want to keep him coming in or sooner. Lab Data Labs: Laboratory Results - last 24 hr 12/22/22 19:25 Urine Color Yellow Urine Clarity Cloudy Urine pH 6.0 Ur Specific Jackson 1.020 Urine Protein 100 H Urine Glucose (UA) Normal Urine Ketones 15 H Urine Occult Blood 150 H Urine Nitrite Positive H Urine Bilirubin Negative Urine Urobilinogen Normal Ur Leukocyte Esterase 500 H Urine RBC 0 SEEN Urine WBC >100 SEEN Ur Squamous Epith Cells 0 SEEN Urine Bacteria 2+ Urine Mucus 0 SEEN Discharge Plan Triage Chief Complaint: Complaint ED Provider: Giuseppe Hinkle Dx/Rx/DC Orders Clinical Impression: Acute urinary obstruction, Urinary tract infection, History of BPH, Benign prostatic hyperplasia Instructions: Urinary Tract Infections in Men, ED Rojo Catheter, Care Prescriptions: New cephalexin [cephalexin] 500 mg capsule 500 mg PO TID 10 Days Qty: 30 0RF No Action glucosamine HCl 750 mg tablet 750 mg tablet 750 mg PO QDAY ibuprofen 200 mg tablet 400 mg PO TID-QID PRN (Reason: cream) multivitamin [Daily Multi-Vitamin] Tablet 1 tab PO DAILY niacin 50 mg tablet 50 mg PO DAILY cholecalciferol (vitamin D3) 50 mcg (2,000 unit) capsule 50 mcg PO DAILY zinc gluconate 100 mg tablet PO tamsulosin 0.4 mg capsule 0.4 mg PO DAILY Qty: 90 1RF dicyclomine 10 mg capsule 10 mg PO BID Qty: 30 2RF ascorbic acid (vitamin C) [Vitamin C] 500 mg Tablet 500 mg PO DAILY gabapentin 100 mg capsule 100 mg PO BID Primary Care Provider: Bashir Vogt Referrals: Bashir Vogt DO [Primary Care Provider] - Clementina Junior MD [Med Staff - Active Staff] - Keep Sybil appointment Disposition Disposition: Home, Self Care What to do if you have Problems For any increased pain, shortness of breath, bleeding, nausea or vomiting, chestpain, or any unexpected problems, contact your Primary Care Provider. Call [facility] ([phone]) or report to the closest Emergency Room. Call 911 if necessary. 12/22/222109 <Electronically signed by Giuseppe Hinkle MD> Cosigner Signature (if applicable): CC: Dr. Bashir Vogt DO ~ Signed [facility] Work Phone: Evaluation + Plan note Future Appointments [facility] Evaluation + Plan note Future Appointments Appointment Date:10/02/2024 01:30:00 PM Scheduled Provider: Location:[facility] Appointment Type:PT Outpatient Evaluation [facility] Evaluation note* Diagnosis Onset Date Resolution Status Diarrhea noneactive Bright red blood per rectum noneactive [facility] Work Phone: Evaluation note* Diagnosis Onset Date Resolution Status Diarrhea noneactive Bright red blood per rectum noneactive Benign prostatic hyperplasia (BPH) with urinary urgency acute Diarrhea acute [facility] Work Phone: Evaluation note* Diagnosis Onset Date Resolution Status Benign prostatic hyperplasia acute Pre-hypertension acute Skin tags, multiple acquired acute [facility] Work Phone: Evaluation noteNo assessment information available [facility] Work Phone: Hospital course Narrative No data available for this section [facility] Hospital Discharge instructions No data available for this section [facility] Progress note No data available for this section [facility] Reason for referral (narrative)No reason for referral [facility]: Chief Complaint and Reason for Visit Chief Complaint bowel issues Reason for Visit Diarrhea Bright red blood per rectum Chief Complaint bowel issues DIARRHEA CAME BACK URINARY RETENTION Reason for Visit Diarrhea Bright red blood per rectum Benign prostatic hyperplasia (BPH) with urinary urgency Diarrhea Chief Complaint BP CONCERNS PSA Reason for Visit Benign prostatic hyp erplasia Pre-hypertension Skin tags, multiple acquired Family History No Family History Records Found Relationship Condition Age at Onset Recorded Date/T dayday father Cardiac disease Unknown Cerebrovascular accident (CVA) Unknown Alcoholism Unknown mother Cardiac disease Unknown Advance Directives No Advanced Directives Records Found Advance Directive Response Recorded Date/ Time Living Will Yes January 10 12:20pm Power of Dispute Coordinator No January 10, 2022 12:20pm Advance Directive Response Recorded Date/ Time Living Will No December 22 9:22pm Power of Dispute Coordinator No December 22, 2022 9:22pm Advance Directive Response Recorded Date/ Time Living Will No December 22 10:22pm Power of Dispute Coordinator No December 22, 2022 10:22pm Summary Purpose Additional Source Comments Care Teams (unrecognized sec tion and content) Team Status: Active Member Role Status Dates Dr. Bashir Vogt , DO Family Provider Active Dr. Bashir Vogt , DO Primary Care Provider Active Team Status: Inactive Member Role Status Dates Dr. Bashir Vogt , DO Primary Care Provider, Referr ing Provider Active DONNA Lynne Attending Provider Active Team Status: Inactive Member Role Status Dates Dr. Bashir Vogt , DO Primary Care Provider Active DONNA Lynne Attending Provider, Referring Pro vider Active Team Status: Active Member Role Status Dates Dr. Bashir Vogt , DO Primary Care Provider Active DONNA Lynne Attending Provider, Referring Pro vider Active Team Status: Inactive Member Role Status Dates Dr. Bashir Vogt , DO Primary Care Pr ovider, Attending Provider, Referring Provider Active Team Status: Active Member Role Status Dates Dr. Bashir Vogt , DO Primary Care Pr ovider, Attending Provider, Referring Provider Active Team Status: Inactive Member Role Status Dates Dr. Bashir Vogt , DO Primary Care Provider Active Dr. Giuseppe Hinkle MD Emergency Provider Active Team Status: Inactive Member Role Status Dates Dr. Bashir Vogt , DO Primary Care Provider Active Dr. Clementina Junior MD Attending Provider, Referr ing Provider Active Team Status: Active Member Role Status Dates Dr. Bashir Vogt , DO Primary Care Provider Active Team Status: Inactive Member Role Status Dates Dr. Bashir Vogt , DO Primary Care Provider Active Start: April 20, 2025 End: April 20, 2025 Dr. Ulysses Crystal MD Attending Provider Active Start: April 20, 2025 End: April 20, 2025 Dr. Ulysses Crystal MD Referring Provider Active Start: April 20, 2025 End: April 20, 2025 Goals (unrecognized section and content) Goals may be documented in a n alternate sectionGoals may be documented in an alternate sectionGoals may be documented in an alternate sectionGoals may be documented in an alternate section No data available for this section No data available for this sectionGoals may be documented in an alternate section No data available for this section No data available for this section No data available for this section No data available for this section No data available for this section No data available for this sectionGoals may be documented in an alternate section Care Team (unrecognized sect ion and content) Care Team Personnel Name: BASHIR VOGT DO Member Role: Primary Care Physician Address: Address: [facility] [address] [place], [place] [address], [place] [address]- Care Team Related Persons Name: DAVID BENEDICT Address: Home [address] [place] [address] [place] Care Team Personnel Name: BASHIR VOGT DO Member Role: Primary Care Physician Address: Address: [facility] [address] [place] [address]- Care Team Related Persons Name: DAVID BENEDICT Address: [address] [facility] [place] [address] [place] (unrecognized sect ion and content) No Status Records FoundNo Status Records FoundNo Status Records Found INFORMATION SOURCE (unrecogn ized section and content) DATE CREATED AUTHOR 07/04/2024 [facility] DATE CREATED AUTHOR AUTHOR'S ORGANIZ ATION 12/02/2024 [facility] DATE CREATED AUTHOR AUTHOR'S ORGANIZ ATION 04/25/2025 [facility] FOR RECORDS PERTAINING TO PATIENTS WHO ARE OR HAVE BEEN ENROLLED IN A CHEMICAL DEPENDENCY/SUBSTANCEABUSE PROGRAM, SOME INFORMATION MAY BE OMITTED. This clinical summary was aggregated from multiple sources. Caution should be exercised in using it in the provision of clinical care. This summary normalizes information from multiple sources, and as a consequence, information in this document may materially change the coding, format and clinical context of patient data. In addition, data may be omitted in some cases. CLINICAL DECISIONS SHOULD BE BASED ON THE PRIMARY CLINICAL RECORDS. [facility] [employer] [facility] provides no warranty or guarantee of the accuracy or completeness of information in this document.
== END | disposition home or self-care (01) ==
PROVIDERS: PCP Family Medicine; Referring Provider Ophthalmology; Visit Provider Ophthalmology
DX: G45.3 Amaurosis fugax (principal); H53.451 Other localized visual field defect, right eye
CPT/HCPCS: 93880

== ENCOUNTER → 2025-05-21 | Outpatient (CLI) | payer MEDICARE, SELFPAY | END | disposition home or self-care (01) | LOC: CVS 13:21 | PROVIDERS: PCP Family Medicine; Referring Provider Ophthalmology; Visit Provider Ophthalmology | DX: G45.3 Amaurosis fugax (principal); H53.451 Other localized visual field defect, right eye | CPT/HCPCS: 93306 ==